=== PATIENT | male | born 1960 | race Hispanic/Latino ===

== ENCOUNTER 2016-10-27 23:18 | Emergency (ER) | payer MEDICAID ==
[2016-10-27 23:18] VITALS: BMI 28.7
--- NOTE | 2016-10-27 23:53 | C.PDOC ---
History Of Present Illness Pt c/o of shortness of breath that began today. Pt has been drinking today and has a history of ETOH abuse. Pt denies any fever, chills, nausea, vomiting, or any other complaints. Time Seen by Provider: 10/27/16 23:53 Chief Complaint (Nursing): Shortness Of Breath History Per: Patient History/Exam Limitations: no limitations Onset/Duration Of Symptoms: Hrs Current Symptoms Are (Timing): Still Present Initiating Event: Other (ETOH abuse) Severity: Mild Associated Symptoms: denies: Fever, Chills, Other (Nausea, vomiting) Recent travel outside of the [place]: No Past Medical History Reviewed: Historical Data, Nursing Documentation, Vital Signs Vital Signs: Last Vital Signs Temp 97.6 F 10/28/16 02:13 Pulse 92 H 10/28/16 02:13 Resp 20 10/28/16 02:13 BP 131/73 10/28/16 02:13 Pulse Ox 92 L 10/28/16 02:26 - Medical History PMH: Anxiety, Arthritis, Back Problems, Bronchitis, Depression, Fractures (fx left leg), Gall Bladder Disease, HTN, Kidney Stones, Chronic Kidney Disease, Seizures (alcohol induced) Denies: Diabetes, Hepatitis, HIV, Sexually Transmitted Disease - [facility] Procedures ALCOHOL DETOXIFICATION (11/06/14) COMBINED ALCOHOL AND DRUG DETOXIFICATION (05/05/15) DETOXIFICATION SERVICES FOR SUBSTANCE ABUSE TREATMENT (07/29/16) GROUP MANAGING PRINCIPAL FOR SUBSTANCE ABUSE TREATMENT, PSYCHOEDUCATION (07/29/16) GROUP PSYCHOTHERAPY (05/24/16) Family History: States: Unknown Family Hx - Social History Hx Tobacco Use: Yes Hx Alcohol Use: Yes Hx Substance Use: No (DENIES) - Immunization History Hx Tetanus Toxoid Vaccination: No Hx Influenza Vaccination: No Hx Pneumococcal Vaccination: No Review Of Systems Constitutional: Negative for: Fever, Chills Respiratory: Positive for: Shortness of Breath Gastrointestinal: Negative for: Nausea, Vomiting Physical Exam - Physical Exam Appears: Non-toxic Skin: Warm, Dry, Other (Facial eczema) Cardiovascular: Rhythm Regular Respiratory: No Rales, Rhonchi (Lungs scattered rhonchi), No Wheezing Gastrointestinal/Abdominal: Tenderness (tympanic on percussion), Distention ED Course And Treatment - Laboratory Results Result Diagrams: 10/28/16 00:15 10/28/16 00:15 ECG: Interpreted By Me, Viewed By Me ECG Rhythm: Sinus Rhythm (75), Nonspecific Changes O2 Sat by Pulse Oximetry: 92 Pulse Ox Interpretation: Abnormal - Radiology CXR: Interpreted by Me, Viewed By Me CXR Interpretation: No: Infiltrates, Fracture, Pnemothorax Reevaluation Time: 05:30 Reassessment Condition: Improved ED OBSERVATION Discharge: Yes Date of observation admission: 10/28/16 Time of observation admission: 02:25 - Progress Note Progress Note: 10/28/16 02:25 vitals stable, slightly tremulous 10/28/16 04:26 no complaints 10/28/16 05:30 vitals stable Disposition Counseled Patient/Family Regarding: Studies Performed, Diagnosis, Need For Followup - Disposition Referrals: [facility] [Outside] Disposition: HOME/ ROUTINE Disposition Time: 23:53 Condition: FAIR Instructions: Alcohol Intoxication (DC), COPD (Chronic Obstructive Pulmonary Disease) (DC) - Clinical Impression Clinical Impression: Alcohol intoxication, Alcohol abuse, COPD (chronic obstructive pulmonary disease) - Scribe Statement The provider has reviewed the documentation as recorded by the Scribe Geronimo valencia All medical record entries made by the Scribe were at my direction and personally dictated by me. I have reviewed the chart and agree that the record accurately reflects my personal performance of the history, physical exam, medical decision making, and the department course for this patient. I have also personally directed, reviewed, and agree with the discharge instructions and disposition.
[2016-10-28 00:17] LABS: VENOUS BLOOD GAS BASE EXCESS 3.3 mmol/L (0.0-2.0); VENOUS BLOOD GAS PCO2 48 mmHg (40-60); VENOUS BLOOD PH 7.39 (7.32-7.43)
[2016-10-28 00:18] LABS: BASO # 0.1 K/uL (0.0-0.2); BASO % 1.1 % (0.0-2.0); EOS # 0.2 K/uL (0.0-0.7); EOS % 3.1 % (0.0-4.0); HEMATOCRIT 42.8 % (35.0-51.0); LYMPH # 2.7 K/uL (1.0-4.3); LYMPH % 38.2 % (20.0-40.0); MEAN CELL VOLUME 99.3 fL (80.0-94.0); MEAN CORPUSCULAR HEMOGLOBIN 33.4 pg (27.0-31.0); MEAN CORPUSCULAR HGB CONC 33.6 g/dL (33.0-37.0); MEAN PLATELET VOLUME 7.2 fL (7.2-11.7); MONO # 0.6 K/uL (0.0-0.8); MONO % 8.7 % (0.0-10.0); WHITE BLOOD COUNT 7.1 K/uL (4.8-10.8)
[2016-10-28 00:30] LABS: INR 1.1
[2016-10-28] MEDS: Albuterol-Ipratrop 3 mg / 0.5 (3 ml) UD IH SCH ×3 (00:30→00:58)
[2016-10-28] MEDS ORDERED: Albuterol-Ipratrop 3 mg / 0.5 (3 ml) UD ONE ×3 (00:31)
[2016-10-28 00:53] LABS: CHLORIDE 100 mmol/L (98-107)
[2016-10-28 00:54] LABS: SODIUM 143 mmol/L (132-148)
[2016-10-28 00:55] LABS: POTASSIUM 3.2 mmol/L (3.6-5.2)
[2016-10-28 00:56] LABS: GFR AFRICAN-AMERICAN > 60
[2016-10-28 00:57] LABS: ALB/GLOB RATIO 1.2 (1.0-2.1); ALKALINE PHOSPHATASE 55 U/L (38-126); ALT/SGPT 153 U/L (21-72); AST/SGOT 136 U/L (17-59); BILIRUBIN,TOTAL 0.7 mg/dL (0.2-1.3); BLOOD UREA NITROGEN 13 mg/dL (9-20); CALCIUM 8.8 mg/dl (8.6-10.4); CARBON DIOXIDE 26 mmol/L (22-30); GLUCOSE,RANDOM 78 mg/dL (75-110); TOTAL PROTEIN 7.8 g/dL (6.3-8.3)
[2016-10-28 00:58] LABS: ALCOHOL SERUM 74 mg/dl (0-10); MAGNESIUM 1.3 mg/dL (1.6-2.3)
[2016-10-28 02:14] VITALS: RESP 20
[2016-10-28] MEDS ORDERED: Potassium Chloride 20 mEq ER Tab PO ONE ×2 (02:22→02:27)
[2016-10-28] MEDS ORDERED: Potassium Chloride 10 mEq ER Tab PO STA (02:26)
[2016-10-28 06:20] VITALS: BP 138/70; PULSE 69; TEMP 97; O2SAT 96
--- NOTE | 2016-10-28 11:04 | RAD ---
PROCEDURE: CHEST RADIOGRAPH, 1 VIEW HISTORY: SOB COMPARISON: 05/24/2016. FINDINGS: LUNGS: Subtle hazy opacity in the lingula. PLEURA: No pneumothorax or pleural fluid seen. CARDIOVASCULAR: Normal. OSSEOUS STRUCTURES: No significant abnormalities. VISUALIZED UPPER ABDOMEN: Normal. OTHER FINDINGS: None. IMPRESSION: Subtle hazy opacity overlying the lingula. PA lateral chest radiographs recommended.
--- NOTE | 2016-10-30 09:06 | CARD ---
APPROVED REPORT EKG Measurement Heart [id number] <Conclusion> Normal sinus rhythm Normal ECG
== END 2016-10-28 06:24 | disposition home or self-care (01) ==
LOC: C.ER 23:18
DX: J44.9 Chronic obstructive pulmonary disease, unspecified (principal); F10.129 Alcohol abuse with intoxication, unspecified; Y90.3 Blood alcohol level of 60-79 mg/100 ml; E87.6 Hypokalemia

== ENCOUNTER 2016-11-07 17:59 | Emergency (ER) | payer MEDICAID ==
[2016-11-07 18:00] VITALS: BMI 32.5
[2016-11-07 18:38] VITALS: BP 132/96; PULSE 85; RESP 18; TEMP 98.3; O2SAT 94
--- NOTE | 2016-11-07 19:57 | C.PDOC ---
History Of Present Illness 55 y/o male presents to the ED requesting place to stay. Pt is homeless, history of alcohol abuse. Pt has no physical complaints at this time. Time Seen by Provider: 11/07/16 19:52 Chief Complaint (Nursing): Substance Abuse History Per: Patient History/Exam Limitations: no limitations Suicide/Self Injury Attempted (Context): None Modifying Factor(s): Alcohol Involuntary Hold By: None Recent travel outside of the [place]: No Past Medical History Reviewed: Historical Data, Nursing Documentation, Vital Signs Vital Signs: Last Vital Signs Temp 98.3 F 11/07/16 18:34 Pulse 85 11/07/16 18:34 Resp 18 11/07/16 18:34 BP 132/96 H 11/07/16 18:34 Pulse Ox 94 L 11/07/16 19:57 - Medical History PMH: Anxiety, Arthritis, Back Problems, Bronchitis, Depression, Fractures (fx left leg), Gall Bladder Disease, HTN, Kidney Stones, Chronic Kidney Disease, Seizures (alcohol induced) - [facility] Procedures ALCOHOL DETOXIFICATION (11/06/14) COMBINED ALCOHOL AND DRUG DETOXIFICATION (05/05/15) DETOXIFICATION SERVICES FOR SUBSTANCE ABUSE TREATMENT (07/29/16) GROUP HEDDLER TIER FOR SUBSTANCE ABUSE TREATMENT, PSYCHOEDUCATION (07/29/16) GROUP PSYCHOTHERAPY (05/24/16) Family History: States: Unknown Family Hx - Social History Hx Tobacco Use: Yes Hx Alcohol Use: Yes Hx Substance Use: No (DENIES) - Immunization History Hx Tetanus Toxoid Vaccination: No Hx Influenza Vaccination: No Hx Pneumococcal Vaccination: No Review Of Systems Except As Marked, All Systems Reviewed And Found Negative. Physical Exam - Physical Exam Appears: Non-toxic, No Acute Distress, Other (intoxicated, belligerent, argumentative, confrontational, foul mouth) Skin: Warm, Dry, No Rash Head: Atraumatic, Normacephalic Cardiovascular: Rhythm Regular Respiratory: Normal Breath Sounds, No Rales, No Rhonchi, No Wheezing Gastrointestinal/Abdominal: Soft Extremity: Bilateral: Atraumatic Neurological/Psych: Oriented x3 ED Course And Treatment O2 Sat by Pulse Oximetry: 94 (on room air) Medical Decision Making Medical Decision Making: chronic alcoholism, ? homeless no detox beds available today ok to d/c to senior living escorted out of ED by security Disposition Doctor Will See Patient In The: Office Counseled Patient/Family Regarding: Studies Performed, Diagnosis - Disposition Referrals: Alcoholics Anonymous [Outside] [facility] [Outside] [facility] [Outside] Disposition: HOME/ ROUTINE Disposition Time: 19:56 Condition: GOOD Additional Instructions: stay at a senior living tonight as directed Seek AA Instructions: Abuse of Alcohol (ED) - Clinical Impression Clinical Impression: Alcohol abuse - Scribe Statement The provider has reviewed the documentation as recorded by the Isidra Carver Provider Attestation: All medical record entries made by the Isidra were at my direction and personally dictated by me. I have reviewed the chart and agree that the record accurately reflects my personal performance of the history, physical exam, medical decision making, and the department course for this patient. I have also personally directed, reviewed, and agree with the discharge instructions and disposition.
== END 2016-11-07 20:03 | disposition home or self-care (01) ==
LOC: C.ER 17:59
DX: F10.10 Alcohol abuse, uncomplicated (principal); Y90.9 Presence of alcohol in blood, level not specified

== ENCOUNTER 2017-01-13 09:22 | Emergency (ER) | payer MEDICAID ==
[2017-01-13 09:22] VITALS: BMI 29.5
[2017-01-13 09:27] VITALS: BP 145/78; PULSE 83; RESP 20; TEMP 97.4; O2SAT 95
--- NOTE | 2017-01-13 11:43 | C.PDOC ---
History Of Present Illness 56 yr old male presents to the ER with complaints of left 1st toe pain, on and off for the past 5 months. States the pain is sharp in nature and came to the ED because he was concerned it may be gout. Patient denies trauma, injury, fever , weakness or numbness. Time Seen by Provider: 01/13/17 09:30 Chief Complaint (Nursing): Lower Extremity Problem/Injury History Per: Patient History/Exam Limitations: no limitations Onset/Duration Of Symptoms: Intermittent Episodes (5 mons ) Past Medical History Reviewed: Historical Data, Nursing Documentation, Vital Signs Vital Signs: Last Vital Signs Temp 97.4 F L 01/13/17 09:26 Pulse 83 01/13/17 09:26 Resp 20 01/13/17 09:26 BP 145/78 01/13/17 09:26 Pulse Ox 95 01/13/17 13:51 - Medical History PMH: Anxiety, Arthritis, Back Problems, Bronchitis, COPD, Depression, Fractures (fx left leg), Gastrointestinal Ulcer, Gall Bladder Disease, HTN, Kidney Stones , Seizures (alcohol induced) - [facility] Procedures ALCOHOL DETOXIFICATION (11/06/14) COMBINED ALCOHOL AND DRUG DETOXIFICATION (05/05/15) DETOXIFICATION SERVICES FOR SUBSTANCE ABUSE TREATMENT (07/29/16) GROUP PLATFORM MAN FOR SUBSTANCE ABUSE TREATMENT, PSYCHOEDUCATION (07/29/16) GROUP PSYCHOTHERAPY (05/24/16) Family History: States: No Known Family Hx - Social History Hx Tobacco Use: Yes Hx Alcohol Use: No Hx Substance Use: Yes (heroin) - Immunization History Hx Tetanus Toxoid Vaccination: No Hx Influenza Vaccination: Yes (9 months ago) Hx Pneumococcal Vaccination: No Review Of Systems Except As Marked, All Systems Reviewed And Found Negative. Constitutional: Negative for: Fever Musculoskeletal: Positive for: Other ((+) Left 1st toe pain ) Neurological: Negative for: Weakness, Numbness Physical Exam - Physical Exam Appears: Well, Non-toxic, No Acute Distress Skin: Warm, Dry, No Rash Head: Atraumatic, Normacephalic Chest: Symmetrical, No Tenderness Cardiovascular: Rhythm Regular, No Murmur Respiratory: Normal Breath Sounds, No Rales, No Rhonchi, No Stridor, No Wheezing Extremity: No Calf Tenderness, Capillary Refill (<2), No Deformity, Other (Left , 1st Toe - Point tenderness to the DIP joint of the toe. Not warm to touch. No erythema. ) Pulses: Left Dorsalis Pedis: Normal, Right Dorsalis Pedis: Normal Neurological/Psych: Oriented x3, Normal Speech, Normal Motor, Normal Sensation, Normal Reflexes ED Course And Treatment O2 Sat by Pulse Oximetry: 95 - Other Rad X-Ray - Left Foot, Great Toe X-Ray: Viewed By Me, Read By Radiologist Interpretation: HISTORY: r/o fx. COMPARISON: No prior. FINDINGS: BONES: Normal. No fracture. JOINTS: Normal. No osteoarthritis. SOFT TISSUE: Normal. OTHER FINDINGS: None . IMPRESSION: Normal Bone Xray. Medical Decision Making Medical Decision Making: PLAN: * X-Ray - Left Foot, Great Toe Disposition - Disposition Referrals: [facility] Prachi Humphries, [Non-Staff] - Disposition: HOME/ ROUTINE Disposition Time: 09:45 Condition: GOOD Additional Instructions: Thank you for letting us take care of you today. Your provider was Dr. Mckeon. You were treated for toe pain. The emergency medical care you received today was directed at your acute symptoms. If you were prescribed any medication, please fill it and take as directed. It may take several days for your symptoms to resolve. Return to the Emergency Department if your symptoms worsen, do not improve, or if you have any other problems. Please contact your doctor or call one of the physicians/clinics you have been referred to that are listed on the Patient Visit Information form that is included in your discharge packet. Bring any paperwork you were given at discharge with you along with any medications you are taking to your follow up visit. Our treatment cannot replace ongoing medical care by a primary care provider (PCP) outside of the emergency department. Thank you for allowing the [facility] team to be part of your care today. Follow up with your doctor in 2-3 days for re-evaluation. Instructions: Arthralgia (ED) - Clinical Impression Clinical Impression: Joint pain - Scribe Statement The provider has reviewed the documentation as recorded by the Isidra Ahn Provider Attestation: All medical record entries made by the Lenoreibmaría were at my direction and personally dictated by me. I have reviewed the chart and agree that the record accurately reflects my personal performance of the history, physical exam, medical decision making, and the department course for this patient. I have also personally directed, reviewed, and agree with the discharge instructions and disposition.
--- NOTE | 2017-01-13 13:49 | RAD ---
HISTORY: r/o fx COMPARISON: No prior FINDINGS: BONES: Normal. No fracture. JOINTS: Normal. No osteoarthritis. SOFT TISSUE: Normal. OTHER FINDINGS: None . IMPRESSION: Normal Bone Xray.
== END 2017-01-13 10:16 | disposition home or self-care (01) ==
LOC: C.ER 09:22
DX: M25.572 Pain in left ankle and joints of left foot (principal)

== ENCOUNTER 2017-03-17 04:10 | Emergency (ER) | payer MEDICAID ==
[2017-03-17 04:10] VITALS: BMI 29.0
[2017-03-17 04:21] VITALS: RESP 18; O2SAT 96
--- NOTE | 2017-03-17 05:03 | C.PDOC ---
History Of Present Illness Patient brought to ED by EMS after being found sitting on street snorting Heroin. At ED patient complaints of left sided neck pain. Patient denies injury , fever, chills, n/v/d or any other complaints at this time. Time Seen by Provider: 03/17/17 05:02 Chief Complaint (Nursing): Substance Abuse History Per: Patient, EMS History/Exam Limitations: no limitations Onset/Duration Of Symptoms: Hrs Current Symptoms Are (Timing): Still Present Suicide/Self Injury Attempted (Context): None Modifying Factor(s): Other (Heroin) Severity: Mild Pain Scale Rating Of: 2 Associated Symptoms: denies: Anger, Anxiety Recent travel outside of the [place]: No Past Medical History Reviewed: Historical Data, Nursing Documentation, Vital Signs Vital Signs: Last Vital Signs Temp 97.4 F L 03/17/17 04:16 Pulse 71 03/17/17 04:16 Resp 18 03/17/17 04:16 BP 116/76 03/17/17 04:16 Pulse Ox 96 03/17/17 05:32 - Medical History PMH: Anxiety, Arthritis, Back Problems, Bronchitis, COPD, Depression, Fractures (fx left leg), Gastrointestinal Ulcer, Gall Bladder Disease, HTN, Kidney Stones , Seizures (alcohol induced) - [facility] Procedures ALCOHOL DETOXIFICATION (11/06/14) COMBINED ALCOHOL AND DRUG DETOXIFICATION (05/05/15) DETOXIFICATION SERVICES FOR SUBSTANCE ABUSE TREATMENT (07/29/16) GROUP GLASS CRUSHER FOR SUBSTANCE ABUSE TREATMENT, PSYCHOEDUCATION (07/29/16) GROUP PSYCHOTHERAPY (05/24/16) Family History: States: No Known Family Hx - Social History Hx Tobacco Use: Yes Hx Alcohol Use: No Hx Substance Use: Yes (heroin) - Immunization History Hx Tetanus Toxoid Vaccination: No Hx Influenza Vaccination: Yes (9 months ago) Hx Pneumococcal Vaccination: No Review Of Systems Constitutional: Negative for: Fever, Chills Gastrointestinal: Negative for: Nausea, Vomiting, Diarrhea Musculoskeletal: Positive for: Neck Pain Skin: Negative for: Rash Physical Exam - Physical Exam Appears: Non-toxic, No Acute Distress Skin: Warm, Dry Head: Normacephalic Eye(s): bilateral: Normal Inspection Nose: No Flaring Oral Mucosa: Moist Neck: Other (Mild paracervical spasms, Full rom) Chest: Symmetrical Cardiovascular: Rhythm Regular Respiratory: No Rales, No Rhonchi, No Wheezing Gastrointestinal/Abdominal: Soft, No Tenderness, No Guarding, No Rebound Extremity: Capillary Refill (<2 seconds), No Deformity Neurological/Psych: Oriented x3, Normal Speech, Normal Cognition ED Course And Treatment O2 Sat by Pulse Oximetry: 96 (RA) Pulse Ox Interpretation: Normal Disposition Counseled Patient/Family Regarding: Studies Performed, Diagnosis, Need For Followup - Disposition Referrals: Bladimir Johnson MD [Primary Care Provider] - Disposition: HOME/ ROUTINE Disposition Time: 05:03 Condition: FAIR Instructions: Cervical Strain (DC), Alcohol Intoxication (DC), Polysubstance Abuse (ED), Neck Exercises (GEN) Forms: [employer] (Puerto Rican) - Clinical Impression Clinical Impression: Alcohol intoxication, Drug abuse, Torticollis - Scribe Statement The provider has reviewed the documentation as recorded by the Scribmaría Coulter All medical record entries made by the Scribe were at my direction and personally dictated by me. I have reviewed the chart and agree that the record accurately reflects my personal performance of the history, physical exam, medical decision making, and the department course for this patient. I have also personally directed, reviewed, and agree with the discharge instructions and disposition.
[2017-03-17 05:46] VITALS: BP 117/87; PULSE 76; TEMP 97.8
== END 2017-03-17 06:15 | disposition home or self-care (01) ==
LOC: C.ER 04:10 → SUPCPDRO 04:10 → C.ER 06:15
DX: M43.6 Torticollis (principal); F10.129 Alcohol abuse with intoxication, unspecified; F11.10 Opioid abuse, uncomplicated; Y90.9 Presence of alcohol in blood, level not specified

== ENCOUNTER 2017-03-17 09:41 | Inpatient (IN) | payer MEDICAID ==
[2017-03-17 09:42] VITALS: BMI 29.0
--- NOTE | 2017-03-17 10:14 | C.PDOC ---
History Of Present Illness 56 y/o male presents to the ED requesting detox from heroin (last use yest) and alcohol (last use 2am). Patient denies physical complaints, and has no SI/HI. Time Seen by Provider: 03/17/17 09:47 Chief Complaint (Nursing): Substance Abuse History Per: Patient History/Exam Limitations: no limitations Onset/Duration Of Symptoms: Persistent Current Symptoms Are (Timing): Still Present Suicide/Self Injury Attempted (Context): None Modifying Factor(s): Alcohol, Narcotics (snorts) Severity: Moderate Associated Symptoms: denies: Suicidal Thoughts, Suicidal Plan Additional History Per: Patient Past Medical History Reviewed: Historical Data, Nursing Documentation, Vital Signs Vital Signs: Last Vital Signs Temp 98.2 F 03/20/17 09:25 Pulse 60 03/20/17 09:25 Resp 18 03/20/17 09:25 BP 133/79 03/20/17 09:25 Pulse Ox 96 03/20/17 09:25 - Medical History PMH: Anxiety, Arthritis, Back Problems, Bronchitis, COPD, Depression, Fractures (fx left leg), Gastrointestinal Ulcer, Gall Bladder Disease, HTN, Kidney Stones , Chronic Kidney Disease, Seizures (alcohol induced) - [facility] Procedures ALCOHOL DETOXIFICATION (11/06/14) COMBINED ALCOHOL AND DRUG DETOXIFICATION (05/05/15) DETOXIFICATION SERVICES FOR SUBSTANCE ABUSE TREATMENT (07/29/16) GROUP SUPERVISOR ASBESTOS REMOVAL FOR SUBSTANCE ABUSE TREATMENT, PSYCHOEDUCATION (07/29/16) GROUP PSYCHOTHERAPY (05/24/16) Family History: States: No Known Family Hx - Social History Hx Tobacco Use: Yes Hx Alcohol Use: Yes Hx Substance Use: Yes (heroin- snort) - Immunization History Hx Tetanus Toxoid Vaccination: No Hx Influenza Vaccination: Yes (9 months ago) Hx Pneumococcal Vaccination: No Review Of Systems Except As Marked, All Systems Reviewed And Found Negative. Constitutional: Negative for: Fever, Chills Cardiovascular: Negative for: Chest Pain, Palpitations Respiratory: Negative for: Shortness of Breath Gastrointestinal: Negative for: Nausea, Vomiting, Abdominal Pain Musculoskeletal: Negative for: Neck Pain Skin: Negative for: Rash, Bruising Neurological: Negative for: Headache, Dizziness Psych: Negative for: Suicidal ideation Physical Exam - Physical Exam Appears: Well, Non-toxic, No Acute Distress Skin: Normal Color, Warm, Dry, No Rash Eye(s): bilateral: Normal Inspection Oral Mucosa: Moist Neck: Supple Cardiovascular: Rhythm Regular Respiratory: Normal Breath Sounds, No Rales, No Rhonchi, No Wheezing Extremity: Bilateral: Atraumatic, Normal ROM Neurological/Psych: Oriented x3 ED Course And Treatment - Laboratory Results Result Diagrams: 03/17/17 10:22 08 10:22 O2 Sat by Pulse Oximetry: 93 (RA) Pulse Ox Interpretation: Normal (Patient is smoker, likely has COPD component) Progress Note: Plan: Blood work, UA, UDS ordered and reviewed. 11:30am - Patient medically cleared. Pending crisis. 11:55am- Patient accepted by Dr. Elizondo for alcohol and opiate dependence admission. Disposition - Disposition Disposition: HOSPITALIZED Disposition Time: 11:55 Condition: STABLE - Clinical Impression Clinical Impression: Opiate dependence, Alcohol dependence - Scribe Statement The provider has reviewed the documentation as recorded by the Scribe Devin Villagran All medical record entries made by the Scribe were at my direction and personally dictated by me. I have reviewed the chart and agree that the record accurately reflects my personal performance of the history, physical exam, medical decision making, and the department course for this patient. I have also personally directed, reviewed, and agree with the discharge instructions and disposition. Decision To Admit - Pt Status Changed To: Hospital Disposition Of: Inpatient - Admit Certification Admit to Inpatient:: After my assessment, the patient will require hospitalization for at least two midnights. This is because of the severity of symptoms shown, intensity of services needed, and/or the medical risk in this patient being treated as an outpatient. - InPatient: Physician Admission Certification: I certify that this patient requires 2 or more midnights of care for the following reason:: see notes - . Bed Request Type: Detox Admitting Physician: Clarita Elizondo Patient Diagnosis: Opiate dependence, Alcohol dependence
[2017-03-17 10:28] LABS: BASO # 0.1 K/uL (0.0-0.2); BASO % 0.9 % (0.0-2.0); EOS # 0.2 K/uL (0.0-0.7); HEMOGLOBIN 13.6 g/dL (12.0-18.0); LYMPH # 1.6 K/uL (1.0-4.3); LYMPH % 23.2 % (20.0-40.0); MEAN CELL VOLUME 98.7 fL (80.0-94.0); MEAN CORPUSCULAR HEMOGLOBIN 33.9 pg (27.0-31.0); MEAN CORPUSCULAR HGB CONC 34.3 g/dL (33.0-37.0); MEAN PLATELET VOLUME 7.7 fL (7.2-11.7); MONO # 0.9 K/uL (0.0-0.8); MONO % 12.1 % (0.0-10.0); NEUT # 4.3 K/uL (1.8-7.0); NEUT % 60.8 % (50.0-75.0); NRBC % 0.1 % (0.0-2.0); RBC 4.01 Mil/uL (4.40-5.90); RED CELL DISTRIBUTION WIDTH 13.3 % (11.5-14.5); WHITE BLOOD COUNT 7.1 K/uL (4.8-10.8)
[2017-03-17 10:34] LABS: ALBUMIN 3.8 g/dL (3.5-5.0); SQUAMOUS EPITHIAL 1 /hpf (0-5); URINE BACTERIA RARE (<OCC); URINE BILIRUBIN NEGATIVE (NEGATIVE); URINE BLOOD NEGATIVE (NEGATIVE); URINE CLARITY Clear (Clear); URINE COLOR Amber (YELLOW); URINE GLUCOSE (UA) NORMAL (Normal); URINE LEUKOCYTE ESTERASE TRACE Leu/uL (Negative); URINE NITRATE NEGATIVE (NEGATIVE); URINE PROTEIN 1+ mg/dL (NEGATIVE); URINE UROBILINOGEN NORMAL mg/dL (0.2-1.0)
[2017-03-17 10:37] LABS: ALB/GLOB RATIO 1.2 (1.0-2.1); AST/SGOT 93 U/L (17-59); BLOOD UREA NITROGEN 10 mg/dL (9-20); GFR AFRICAN-AMERICAN > 60; GFR NON-AFRICAN AMERICAN > 60
[2017-03-17 10:38] LABS: ALT/SGPT 144 U/L (21-72); CALCIUM 8.5 mg/dl (8.6-10.4)
[2017-03-17 10:50] LABS: BARBITURATES, UR NEGATIVE (NEGATIVE); BENZODIAZEPINES, UR NEGATIVE (NEGATIVE)
[2017-03-17 10:53] LABS: PHENCYCLIDINE, UR NEGATIVE (NEGATIVE)
[2017-03-17 11:17] LABS: OPIATES, UR POSITIVE (NEGATIVE)
[2017-03-17] MEDS ORDERED: Albuterol-Ipratrop 3 mg / 0.5 (3 ml) UD INH STA (11:59)
[2017-03-17] MEDS ORDERED: Albuterol-Ipratrop 3 mg / 0.5 (3 ml) UD ONE (12:02)
[2017-03-17] MEDS ORDERED: Albuterol HFA 90 mcg/actuation (8 g) INH PRN (13:22)
[2017-03-17] MEDS ORDERED: Aluminum Hydroxide/Magnesium Hydroxide Susp (30 mL) PO PRN (13:26)
--- NOTE | 2017-03-17 13:55 | PCM.BM ---
<Aicha Fowler G - Last Filed: 03/17/17 13:57> Treatment Plan Problems - Problems identified on initial assessmt opiate dependence Date Initiated: 03/17/17 Time Initiated: 13:54 Assessment reference: NA Status: Active etoh dependent Date Initiated: 03/17/17 Time Initiated: 13:55 Assessment reference: NA Status: Active Treatment assets and liabiliti Patient Assests: ADL independent Patient Liabilities: live alone, poor support system, substance abuse - Milieu Protocol Maintain good personal hygiene: daily Encourage regular showers, daily Remind patient to perform daily oral care, daily Assist patient to perform ADL's Maintain personal safety: every shift Educate patient to report safety concerns to staff, every shift Monitor environment for contraband/sharps Medication safety: Monitor for expected outcome, potential side effects: every shift, Assess barriers to learning: every shift, Assess readiness for medication education: every shift <Clarita Elizondo - Last Filed: 03/17/17 20:44> Treatment Plan Problems - Problems identified on initial assessmt opiate dependence Date Initiated: 03/17/17 Time Initiated: 13:54 Assessment reference: NA Status: Active etoh dependent Date Initiated: 03/17/17 Time Initiated: 13:55 Assessment reference: NA Status: Active Problem 2 Date Initiated: 03/17/17 Time Initiated: 13:55 Assessment reference: NA Status: Active - Diagnosis (1) Alcohol withdrawal Status: Acute Interventions: 03/17/17 20:43 * Assess 7x/week regarding severity of withdrawal * Educate regarding risks, benefits, side effects and alternatives of medications * Use Motivational Interviewing for abstinence * Use CBT for relapse prevention * Medication management for withdrawal symptoms * Encourage medication assisted treatment * (2) Opioid use disorder, severe, dependence Status: Acute Interventions: 03/17/17 20:44 * Assess 7x/week regarding severity of withdrawal * Educate regarding risks, benefits, side effects and alternatives of medications * Use Motivational Interviewing for abstinence * Use CBT for relapse prevention * Medication management for withdrawal symptoms * Encourage medication assisted treatment *
[2017-03-17] MEDS: Multiple Vitamins Tab PO SCH (14:50)
--- NOTE | 2017-03-17 15:03 | PCM.PSYCH ---
Initial Psychiatric Evaluation - Initial Psychiatric Evaluation Type of Admission: Voluntary Legal Status: Capacity Chief Complaint (in patient's own words): "I want to get clean" History of Present Illness and Precipitating Events: The pt is seen, chart reviewed, case discussed with staff. 56 y/o male present to the ED today morning requesting detox from heroin and alcohol. Patient says he is withdrawing from alcohol already and he was shaky. The patient states that he snorts 10-15 bags/day of heroin and drinks 1.5 pints/ day of alcohol. The patient states that he last used heroin yesterday and last drank alcohol at 4 a.m. today morning. The patient reports that he's been sober for 2 months prior to relapse. The patient does not specify reason for relapse. He has a hx of DTs and seizure. The patient denies suicidal thoughts or plans. Feels somewhat depressed, though. Past Psychiatric Hx: Smokes 1 pack/day; snorts cocaine; 4 mg (2 sticks) /day of xanax. No psych admission and no facundo attempts. Past Medical Hx: Bronchitis, untreated; arthritis; back problems; COPD; depression; fractures (fx left leg); gastrointestinal ulcer; gall bladder disease; HTN; kidney stones; chronic kidney disease Family psych hx: Not known Current Medications: Active Medications Generic Name Dose Route Start Last Admin Trade Name Freq PRN Reason Stop Dose Admin Al Hydrox/Mg Hydrox/Simethicone 30 ml 03/17/17 13:26 Maalox 30 Ml PO TID PRN Indigestion / Heartburn Albuterol 1 puff 03/17/17 13:22 Ventolin Hfa 90 Mcg/Actuation (8 G) INH RQ4 PRN SOB Clonidine HCl 0.1 mg 03/17/17 13:24 Catapres PO Q4H PRN Symptoms of alcohol withdrawl Escitalopram Oxalate 5 mg 03/17/17 13:30 Lexapro PO DAILY BEVERLEY Folic Acid 1 mg 03/17/17 13:30 03/17/17 14:50 Folic Acid PO 1 mg DAILY BEVERLEY Administration Ibuprofen 600 mg 03/17/17 13:22 Motrin Tab PO Q6H PRN Pain, moderate (4-7) Loperamide HCl 2 mg 03/17/17 13:26 Imodium PO Q8 PRN Diarrhea Lorazepam 1 mg 03/17/17 13:24 Ativan PO Q4H PRN Symptoms of alcohol withdrawl Lorazepam 2 mg 03/17/17 13:30 03/17/17 14:50 Ativan PO 03/21/17 13:29 2 mg Q6H BEVERLEY Administration Taper Multivitamins 1 tab 03/17/17 13:30 03/17/17 14:50 Hexavitamin PO 1 tab DAILY BEVERLEY Administration Ondansetron HCl 4 mg 03/17/17 13:26 Zofran Tab PO Q8 PRN Nausea/Vomiting Fluticasone/Salmeterol 1 puff 03/17/17 20:00 Advair Diskus 250/50 INH RQ12 BEVERLEY Thiamine HCl 100 mg 03/17/17 13:30 03/17/17 14:50 Vitamin B1 Tab PO 100 mg DAILY BEVERLEY Administration Trazodone HCl 50 mg 03/17/17 22:00 Desyrel PO HS BEVERLEY Past Psychiatric History - Past Psychiatric History Previous Treatment History: None Pertinent Medical Hx (Current Medical&Sleep Prob, Allergies): Allergies Allergy/AdvReac Type Severity Reaction Status Date / Time amitriptyline HCl Allergy SWELLING Verified 03/17/17 09:50 [From Elavil] naproxen Allergy SWELLING Verified 03/17/17 09:50 pregabalin [From Lyrica] Allergy SWELLING Verified 03/17/17 09:50 ALPRAZolam [Xanax] 1 mg PO BID 03/17/17 Review of Systems - Review of Systems Systems not reviewed;Unavailable: Respiratory Distress - Neurological Neurological: As Per HPI, Abnormal Speech, Tremor - Psychiatric Psychiatric: As Per HPI, Anxiety, Depression, Difficulty Concentrating. absent : Suicidal Ideation Mental Status Examination - Personal Presentation Personal Presentation: Looks older than stated age (unkempt) Additional comments: unkempt - Affect Affect: Constricted - Motor Activity Motor Activity: Psychomotor Retardation - Reliability in Providing Information Reliability in Providing Information: Fair - Speech Speech: Organized (but slowed) - Mood Mood: Depressed, Anxious - Formal Thought Process Formal Thought Process: No Impairment - Obsessions/Compulsions Obsessions: No Compulsions: No - Cognitive Functions Orientation: Person, Place, Situation, Time Sensorium: Drowsy Attention/Concentration: Easily distracted Abstract Thinking: [place] Estimate of Intelligence: Average Judgement: Intact, as evidence by: Insight regarding need for hospitalization Memory: Recent intact, as evidence by: Ability to recall events of the day, Remote impaired as evidenced by: Inability to recall sig life events - Risk Risk: Withdrawal, Diminished functioning - Strength & Assets Inventory Strength & Assets Inventory: Cooperative - Limitations Limitations: Living alone, Other DSM 5 DX - DSM 5 DSM 5 Diagnosis: Opioid withdrawal Opioid use d/o - severe Alcohol withdrawal Alcohol use d/o - severe Sedative, hypnotic, or anxiolytic use disorder d/o - severe Tobacco use d/o - severe Major depressive d/o - moderate - Recommended/Plan of Treatment Treatment Recommendations and Plan of Treatment: Ativan detox for alcohol Subutex detox for heroin Gabapentin to augment Bronchitis f/o with medicine As needed meds and vitamins Attend groups and activities DC for abstinence and CBT for relapse prevention Support and psychoeducation Consider and encourage MAT Refer to after care - he says he now has an ID and wants to go to rehab. That was the issue in his last admission. 31 min Projected ELOS: 6-7 Days Prognosis: Good with tx - Smoking Cessation Smoking Cessation Initiated: No
[2017-03-17] MEDS: Fluticasone-Salmeterol 250-50mcg Diskus INH SCH (21:54)
[2017-03-18] MEDS: Fluticasone-Salmeterol 250-50mcg Diskus INH SCH ×2 (08:03→20:58)
[2017-03-18] MEDS ORDERED: Buprenorphine Hydrochloride 2 mg SL ONE ×2 (09:00→11:00)
[2017-03-18] MEDS: Multiple Vitamins Tab PO SCH (10:02)
--- NOTE | 2017-03-18 18:08 | PCM.PYCHPN ---
Psychiatric Progress Note - Psychiatric Progress Note Patient seen today, length of contact: 16 min Patient Chief Complaint: "I am withdrawing" Problems Identified/Issues Discussed: The pt is seen, chart reviewed, case discussed with staff. The pt is compliant with medications and reports no side-effects. Symptoms are improving but needs more time to stabilize. After care discussed, support and psychoeducation given. Medication Change: Yes (detox changes daily) Medical Record Reviewed: Yes Mental Status Examination - Cognitive Function Orientation: Person, Place, Situation, Time Memory: Impaired Attention: Poor Concentration: Poor Association: WNL Fund of Knowledge: WNL - Mood Mood: Depressed, Anxious - Affect Affect: Constricted - Speech Speech: Appropriate - Formal Thought Process Formal Thought Process: No Impairment - Suicidal Ideation Suicidal Ideation: No - Homicidal Ideation Homicidal Ideation: No Goal/Treatment Plan - Goal/Treatment Plan Need for Continued Stay: Discharge may exacerbated symptoms, Severe functional impairment Progress Toward Problem(s) and Goals/Treatment Plan: Ativan detox for alcohol Subutex detox for heroin started Gabapentin to augment Bronchitis f/o with medicine As needed meds and vitamins Attend groups and activities NH for abstinence and CBT for relapse prevention Support and psychoeducation Consider and encourage MAT Refer to after care - Rehab
[2017-03-19] MEDS: Fluticasone-Salmeterol 250-50mcg Diskus INH SCH ×2 (08:25→20:51)
[2017-03-19] MEDS: Multiple Vitamins Tab PO SCH (09:02)
[2017-03-19] MEDS: Buprenorphine Hydrochloride 2 mg SL SCH (09:02)
--- NOTE | 2017-03-19 09:48 | PCM.PYCHPN ---
Psychiatric Progress Note - Psychiatric Progress Note Patient seen today, length of contact: 15 min Patient Chief Complaint: "Not well" Problems Identified/Issues Discussed: The pt is seen, chart reviewed, case discussed with staff. Support given, CBT and MD used briefly No new symptoms reported, improving slowly and needs more time No SEs from medications, risks discussed. After care discussed, he is somewhat motivated Medication Change: Yes (detox changes daily) Medical Record Reviewed: Yes Mental Status Examination - Cognitive Function Orientation: Person, Place, Situation, Time Memory: Impaired Attention: Poor Concentration: Poor Association: WNL Fund of Knowledge: WNL - Mood Mood: Depressed, Anxious - Affect Affect: Constricted - Speech Speech: Appropriate - Formal Thought Process Formal Thought Process: No Impairment - Suicidal Ideation Suicidal Ideation: No - Homicidal Ideation Homicidal Ideation: No Goal/Treatment Plan - Goal/Treatment Plan Need for Continued Stay: Discharge may exacerbated symptoms, Severe functional impairment Progress Toward Problem(s) and Goals/Treatment Plan: Ativan detox for alcohol Subutex detox for heroin started Gabapentin to augment As needed meds and vitamins Attend groups and activities MD for abstinence and CBT for relapse prevention Support and psychoeducation Consider and encourage MAT Refer to after care - Rehab
[2017-03-20] MEDS: Fluticasone-Salmeterol 250-50mcg Diskus INH SCH ×2 (09:29→21:31)
[2017-03-20] MEDS: Multiple Vitamins Tab PO SCH (09:30)
[2017-03-20] MEDS: Buprenorphine Hydrochloride 2 mg SL SCH (09:31)
[2017-03-20 10:01] VITALS: RESP 18
--- NOTE | 2017-03-20 14:58 | PCM.PYCHPN ---
Psychiatric Progress Note - Psychiatric Progress Note Patient seen today, length of contact: 16 min Patient Chief Complaint: "I'm feeling a little better." Problems Identified/Issues Discussed: The pt is seen, chart reviewed, case discussed with staff. Support given, CBT and CT used briefly The patient admits to N/V/D The patient is shaky The patient is improving slowly and needs more time No SEs from medications, risks discussed. After care discussed, he is somewhat motivated Medication Change: Yes (detox changes daily) Medical Record Reviewed: Yes Mental Status Examination - Cognitive Function Orientation: Person, Place, Situation, Time Memory: Impaired Attention: Poor Concentration: Poor Association: WNL Fund of Knowledge: WNL - Mood Mood: Depressed, Anxious - Affect Affect: Constricted - Speech Speech: Appropriate - Formal Thought Process Formal Thought Process: No Impairment - Suicidal Ideation Suicidal Ideation: No - Homicidal Ideation Homicidal Ideation: No Goal/Treatment Plan - Goal/Treatment Plan Need for Continued Stay: Discharge may exacerbated symptoms, Severe functional impairment Progress Toward Problem(s) and Goals/Treatment Plan: Ativan detox for alcohol Subutex detox for heroin started Gabapentin to augment As needed meds and vitamins Attend groups and activities CT for abstinence and CBT for relapse prevention Support and psychoeducation Consider and encourage MAT Refer to after care - Rehab Estimated Date of D/C: 03/21/17
[2017-03-21] MEDS: Multiple Vitamins Tab PO SCH (09:17)
[2017-03-21] MEDS: Buprenorphine Hydrochloride 2 mg SL SCH (09:19)
[2017-03-21 09:21] VITALS: BP 122/75; PULSE 58; TEMP 98.4; O2SAT 96
[2017-03-21] MEDS: Fluticasone-Salmeterol 250-50mcg Diskus INH SCH (09:33)
--- NOTE | 2017-03-21 10:20 | PCM.PYCHDC ---
Mental Status Examination - Mental Status Examination Orientation: Person Memory: Intact Mood: Depressed, Anxious Affect: Constricted Speech: Appropriate Attention: WNL Concentration: WNL Association: WNL Fund of Knowledge: WNL Formal Thought Process: No Impairment Description of patient's judgement and insight: Reasonable Suicidal Ideation: No Current Homicidal Ideation?: No Discharge Summary - Discharge Note Reason for Hospitalization: Opioid and alcohol detox Consultations:: List each consultation separately and include: 1. Reason for request. 2. Findings. 3. Follow-up Summary of Hospital Course include:: 1. Description of specific treatment plan utilized for patients during their course of treatmen. 2. Summarize the time- course for resolution of acute symptoms and/or regressed behaviors. 3. Describe issues identified and worked on during hospitalization. 4. Describe medication utilized. 5. Describe medical problems identified and treated. 6. Reassessment of suicide risk Summary of Hospital Course: The pt was admitted for opioid and alchol detox and started on treatment with psychotherapy, support, psychoeducation and medications. [place] and CBT used. The pt attended groups and activities, as well as milieu therapy. All the risks and benefits of medications are discussed and the patient understood and agreed. The pt improved with the treatments provided. After care discussed with the patient; he will go to [facility] homeless [facility] and attend AA b/c he didn;t get a response form a rehab He says he will keep calling - Final Diagnosis (DSM 5) Condition upon Discharge: STABLE DSM 5: Alcohol withdrawal Opioid withdrawal Alcohol use d/o - severe Opioid use d/o - severe Depressive d/o - unspecified Disposition: HOME/ ROUTINE Follow-up Treatment Plan: Continue below medications after discharge. Follow after care plan as discussed above. Use relapse prevention skills. Return to ER or call 911 if suicidal, homicidal or symptoms relapse. Stay away from stress, alcohol and drugs. Use relaxation techniques. See primary doctor once a year and get labs. Consider MAT Prescriptions/Medication Reconciliation: Escitalopram [Lexapro] 10 mg PO DAILY #30 tab Gabapentin [Neurontin] 300 mg PO BID #60 cap hydrOXYzine HCl [Atarax] 50 mg PO HS #30 tab Multivitamins [Hexavitamin] 1 tab PO DAILY #30 tab - Smoking Cessation Smoking Cessation Medication prescribed: No - Antipsychotic Medications Pt discharged on 2 or more routine antipsychotic medications: No
== END 2017-03-21 11:25 | disposition home or self-care (01) | DRG 744 ==
LOC: C.ER 09:41 → C.7D 11:55
PROVIDERS: ADMIT Psychiatry & Neurology Psychiatry; ATTEND Psychiatry & Neurology Psychiatry
PROC: HZ2ZZZZ Detoxification Services for Substance Abuse Treatment (ICD-10-PCS; principal; 2017-03-17)
PROC: HZ59ZZZ Individual Psychotherapy for Substance Abuse Treatment, Supportive (ICD-10-PCS; 2017-03-17)
PROC: HZ46ZZZ Group Counseling for Substance Abuse Treatment, Psychoeducation (ICD-10-PCS; 2017-03-17)
PROC: GZ3ZZZZ Medication Management (ICD-10-PCS; 2017-03-17)
DX: F11.23 Opioid dependence with withdrawal (principal); J44.9 Chronic obstructive pulmonary disease, unspecified; I12.9 Hypertensive chronic kidney disease with stage 1 through stage 4 chronic kidney disease, or unspecified chronic kidney disease; N18.9 Chronic kidney disease, unspecified; F10.239 Alcohol dependence with withdrawal, unspecified; F32.9 Major depressive disorder, single episode, unspecified; F13.90 Sedative, hypnotic, or anxiolytic use, unspecified, uncomplicated; Z72.0 Tobacco use; Z87.11 Personal history of peptic ulcer disease; Z87.442 Personal history of urinary calculi

== ENCOUNTER 2017-07-07 13:29 | Inpatient (IN) | payer MEDICAID ==
[2017-07-07 13:30] VITALS: BMI 29.0
[2017-07-07 14:50] LABS: BASO % 0.5 % (0.0-2.0); EOS # 0.2 K/uL (0.0-0.7); HEMATOCRIT 43.7 % (35.0-51.0); LYMPH # 1.2 K/uL (1.0-4.3); LYMPH % 17.8 % (20.0-40.0); MEAN CELL VOLUME 98.3 fL (80.0-94.0); MEAN CORPUSCULAR HEMOGLOBIN 33.8 pg (27.0-31.0); MEAN CORPUSCULAR HGB CONC 34.4 g/dL (33.0-37.0); MEAN PLATELET VOLUME 7.7 fL (7.2-11.7); MONO # 0.5 K/uL (0.0-0.8); MONO % 7.9 % (0.0-10.0); RED CELL DISTRIBUTION WIDTH 13.2 % (11.5-14.5); WHITE BLOOD COUNT 6.8 K/uL (4.8-10.8)
[2017-07-07 15:04] LABS: INR 1.1
[2017-07-07 15:07] LABS: ALKALINE PHOSPHATASE 63 U/L (38-126); ALT/SGPT 151 U/L (21-72); AST/SGOT 128 U/L (17-59); BILIRUBIN,TOTAL 1.7 mg/dL (0.2-1.3); BLOOD UREA NITROGEN 15 mg/dL (9-20); CALCIUM 8.7 mg/dl (8.6-10.4); CARBON DIOXIDE 24 mmol/L (22-30); CHLORIDE 95 mmol/L (98-107); GFR AFRICAN-AMERICAN > 60; GLUCOSE,RANDOM 78 mg/dL (75-110); POTASSIUM 5.6 mmol/L (3.6-5.2); SODIUM 131 mmol/L (132-148); TOTAL PROTEIN 8.9 g/dL (6.3-8.3)
--- NOTE | 2017-07-07 15:13 | RAD ---
PROCEDURE: CHEST RADIOGRAPH, 1 VIEW HISTORY: Chest pain. COMPARISON: Comparison made with prior chest radiograph 01/13/2017 FINDINGS: LUNGS: Poor inspiration with low lung volumes, crowded bronchovascular markings and mild bibasilar atelectasis. PLEURA: No pneumothorax or pleural fluid seen. CARDIOVASCULAR: Heart size upper limits of normal/borderline enlarged. . OSSEOUS STRUCTURES: Mild multilevel degenerative spondylosis of the thoracic spine. Mild degenerative changes both shoulder girdles. VISUALIZED UPPER ABDOMEN: Normal. OTHER FINDINGS: None. IMPRESSION: Poor inspiration with low lung volumes, crowded bronchovascular markings and mild bibasilar atelectasis.
[2017-07-07 15:15] LABS: ALCOHOL SERUM < 10 mg/dl (0-10)
--- NOTE | 2017-07-07 15:38 | C.PDOC ---
History Of Present Illness 56-year-old male brought to the emergency department by ambulance for evaluation of chest pain that has been ongoing since this morning, as well as possible alcohol/substance abuse. Patient appears to be under the influence. All other Hx is limited due to intoxication. Time Seen by Provider: 07/07/17 13:39 Chief Complaint (Nursing): Chest Pain History Per: Patient History/Exam Limitations: no limitations Current Symptoms Are (Timing): Still Present Severity: Mild Past Medical History Reviewed: Historical Data, Nursing Documentation, Vital Signs Vital Signs: Last Vital Signs Temp 97.4 F L 07/07/17 13:43 Pulse 54 L 07/07/17 18:10 Resp 16 07/07/17 18:10 BP 129/80 07/07/17 18:10 Pulse Ox 94 L 07/07/17 18:10 - Medical History PMH: Anxiety, Arthritis, Back Problems, Bronchitis, COPD, Depression, Fractures (fx left leg), Gastrointestinal Ulcer, Gall Bladder Disease, HTN, Kidney Stones , Chronic Kidney Disease, Seizures (alcohol induced) - [facility] Procedures ALCOHOL DETOXIFICATION (11/06/14) COMBINED ALCOHOL AND DRUG DETOXIFICATION (05/05/15) DETOXIFICATION SERVICES FOR SUBSTANCE ABUSE TREATMENT (06/15/17) GROUP FLAG DECORATOR FOR SUBSTANCE ABUSE TREATMENT, PSYCHOEDUCATION (03/17/17) GROUP PSYCHOTHERAPY (05/24/16) INDIV PSYCHOTHERAPY FOR SUBSTANCE ABUSE TREATMENT, SUPPORT (03/17/17) INDIV PSYCHOTHERAPY FOR SUBSTANCE ABUSE, COGNITIV BEHAVIORAL (06/15/17) INDIV PSYCHOTHERAPY FOR SUBSTANCE ABUSE, MOTIVATION ENHANCE (06/15/17) MEDICATION MANAGEMENT (03/17/17) MEDS MGMT FOR SUBSTANCE ABUSE TREATMENT, OTH REPL MED (06/15/17) Family History: States: No Known Family Hx - Social History Hx Tobacco Use: Yes Hx Alcohol Use: Yes Hx Substance Use: Yes - Immunization History Hx Tetanus Toxoid Vaccination: No Hx Influenza Vaccination: Yes (9 months ago) Hx Pneumococcal Vaccination: No Review Of Systems Review Of Systems: ROS cannot be obtained secondary to pt's inabilty to answer questions. Physical Exam - Physical Exam Appears: Non-toxic, Unkempt, Other (drowsy but arousable to verbal stimuli) Skin: Warm, Dry, No Rash Head: Atraumatic, Normacephalic Eye(s): bilateral: Normal Inspection Oral Mucosa: Moist Cardiovascular: Rhythm Regular (Bradycardic), No Murmur Respiratory: Normal Breath Sounds, No Accessory Muscle Use, No Rales, No Rhonchi , No Wheezing Gastrointestinal/Abdominal: Normal Exam, Bowel Sounds, Soft, No Tenderness Extremity: Normal ROM, No Pedal Edema, No Calf Tenderness Neurological/Psych: Other (drowsy but arousable to verbal stimuli, moving all 4 extremities spontaneously) ED Course And Treatment - Laboratory Results Result Diagrams: 07/07/17 14:44 07/07/17 14:44 ECG: Interpreted By Me, Viewed By Me ECG Rhythm: Sinus Bradycardia ECG Interpretation: Normal (Normal axis. No acute ST/T wave changes.) Rate From EC O2 Sat by Pulse Oximetry: 95 (on RA) Pulse Ox Interpretation: Normal - Radiology CXR: Interpreted by Me, Viewed By Me CXR Interpretation: Yes: No Acute Disease. No: Infiltrates Progress Note: Blood work, EKG, Chest X-Ray ordered and reviewed. Patient has multiple prior visits at [facility] for alcohol/substance abuse and chest pain. 7:00pm- Patient drowsy but arousable to verbal stimuli. UDS pending, however suspect substance abuse. ANICETO (-) x 2. Patient signed out to Dr. Shaver pending sobriety. Disposition - Disposition Disposition Time: 19:00 Condition: STABLE Forms: [facility] (Green[place]ic) - Clinical Impression Clinical Impression: Alcohol dependence, Substance abuse - Scribe Statement The provider has reviewed the documentation as recorded by the Scribe (Padmini Wyatt) All medical record entries made by the Scribe were at my direction and personally dictated by me. I have reviewed the chart and agree that the record accurately reflects my personal performance of the history, physical exam, medical decision making, and the department course for this patient. I have also personally directed, reviewed, and agree with the discharge instructions and disposition.
--- NOTE | 2017-07-08 11:49 | PCM.PSYCH ---
Initial Psychiatric Evaluation - Initial Psychiatric Evaluation Type of Admission: Voluntary Legal Status: Capacity History of Present Illness and Precipitating Events: The pt is seen, chart reviewed, case discussed with staff. He is well-known from previous detox and more recently psych admissions. 56 y/o male, single, homeless ("waiting for housing") and unemployed, stays at [facility]. He was supposed to go to [facility] methadone program b/c he has both heroin and pain syndrome, but he says he couldn't b/c it was "every day" which he, of course, knew. The patient says he is withdrawing from alcohol and heroin. The patient states that he snorts 8-10 bags/day of heroin and drinks a quart/day of alcohol. The patient states that he last used both yesterday. The patient reports that he's been sober for 1-2 weeks prior to relapse. The patient does not specify reason for relapse. He has a hx of DTs and seizure. He also uses xanax on and off (no wdw) and cocaine i.n. various amounts. The patient denies suicidal thoughts or plans. Feels very depressed, though. He is demoralized a lot from constant pain and relapses. reports depressive sxs but no AVH or delusions Past Psychiatric Hx: One psych admission here last month but no facundo attempts. Past Medical Hx: Bronchitis, untreated; arthritis; back problems; COPD; gastrointestinal ulcer; gall bladder disease; HTN; kidney stones; chronic kidney disease Family psych hx: Family members had drug and alcohol use Current Medications: Active Medications Generic Name Dose Route Start Last Admin Trade Name Farshadq PRN Reason Stop Dose Admin Clonidine HCl 0.1 mg 07/08/17 11:46 Catapres PO Q4H PRN Symptoms of alcohol withdrawl Folic Acid 1 mg 07/08/17 12:00 Folic Acid PO DAILY BEVERLEY Gabapentin 300 mg 07/08/17 14:00 Neurontin PO TID BEVERLEY Hydroxyzine HCl 50 mg 07/08/17 11:38 Atarax PO Q6H PRN Anxiety Lorazepam 1 mg 07/08/17 11:46 Ativan PO Q4H PRN Symptoms of alcohol withdrawl Lorazepam 0 mg 07/08/17 12:00 Ativan PO 07/12/17 11:59 .TAPER BEVERLEY Taper Methadone HCl 20 mg 07/08/17 12:00 Methadone PO 07/08/17 12:01 ONCE ONE Multivitamins 1 tab 07/08/17 12:00 Hexavitamin PO DAILY BEVERLEY Sertraline HCl 100 mg 07/08/17 11:45 Zoloft PO DAILY BEVERLEY Thiamine HCl 100 mg 07/08/17 12:00 Vitamin B1 Tab PO DAILY BEVERLEY Trazodone HCl 100 mg 07/08/17 11:38 Desyrel PO HS PRN Insomnia Past Psychiatric History - Past Psychiatric History Previous Treatment History: Inpatient Pertinent Medical Hx (Current Medical&Sleep Prob, Allergies): Allergies Allergy/AdvReac Type Severity Reaction Status Date / Time amitriptyline HCl Allergy SWELLING Verified 07/07/17 13:52 [From Elavil] naproxen Allergy SWELLING Verified 07/07/17 13:52 pregabalin [From Lyrica] Allergy SWELLING Verified 07/07/17 13:52 Gabapentin [Neurontin] 300 mg PO TID #90 cap 06/22/17 Mirtazapine [Remeron] 30 mg PO HS #30 tab 06/22/17 Sertraline [Zoloft] 100 mg PO DAILY #30 tab 06/22/17 traZODone [Desyrel] 100 mg PO HS PRN #30 tab 06/22/17 Albuterol HFA [Ventolin HFA 90 mcg/actuation (8 g)] 1 - 2 puff IH Q4 PRN #1 inhaler 06/29/17 Fluticasone/Salmeterol 100/50 [Advair Diskus 100/50] 1 puff IH BID #1 dsk Review of Systems - Neurological Neurological: Tremor - Psychiatric Psychiatric: Abnormal Sleep Pattern, Anhedonia, Anxiety, Behavioral Changes, Change in Appetite, Depression, Difficulty Concentrating, Homicidal Ideation, Irritability. absent: Hallucinations, Paranoia, Suicidal Ideation Mental Status Examination - Personal Presentation Personal Presentation: Looks older than stated age (unkempt) - Affect Affect: Constricted - Motor Activity Motor Activity: Calm - Reliability in Providing Information Reliability in Providing Information: Fair - Speech Speech: Organized - Mood Mood: Depressed, Anxious - Formal Thought Process Formal Thought Process: No Impairment - Cognitive Functions Orientation: Person, Place, Situation, Time Sensorium: Alert Attention/Concentration: Attentive Estimate of Intelligence: Average Judgement: Intact, as evidence by: Insight regarding need for hospitalization Memory: Recent intact, as evidence by: Ability to recall events of the day, Remote intact, as evidenced by: Ability to recall historical events - Risk Risk: Seizure, Withdrawal, Diminished functioning - Strength & Assets Inventory Strength & Assets Inventory: Cooperative - Limitations Limitations: Living alone, Other DSM 5 DX - DSM 5 DSM 5 Diagnosis: Major depression, recurrent, severe w/o psychosis Opioid withdrawal Opioid use d/o - severe Alcohol withdrawal Alcohol use d/o -severe Cocaine use d/o - moderate 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
[2017-07-08] MEDS: Multiple Vitamins Tab PO SCH (12:03)
--- NOTE | 2017-07-08 20:00 | PCM.BM ---
<Berna Terrazas - Last Filed: 07/08/17 20:00> Treatment Plan Problems - Problems identified on initial assessmt Depression Date Initiated: 07/08/17 Time Initiated: 20:00 Assessment reference: NA Status: Active Comment: hx of drug abuse Treatment assets and liabiliti Patient Assests: ADL independent, negotiates basic needs - Milieu Protocol Maintain good personal hygiene: daily Encourage regular showers, daily Remind patient to perform daily oral care Conduct patient checks and document Observation sheet: Q15 minutes Maintain personal safety: every shift Educate patient to report safety concerns to staff, every shift Monitor environment for contraband/sharps Medication safety: Monitor for expected outcome, potential side effects: every shift, Assess barriers to learning: every shift, Assess readiness for medication education: every shift <Clarita Elizondo - Last Filed: 07/10/17 12:41> - Diagnosis (1) Alcohol dependence Status: Acute Interventions: 07/10/17 12:41 * Assess 7x/week regarding severity of withdrawal * Educate regarding risks, benefits, side effects and alternatives of medications * Use Motivational Interviewing for abstinence * Use CBT for relapse prevention * Medication management for withdrawal symptoms * Encourage medication assisted treatment * (2) Opioid use disorder, severe, dependence Status: Acute Interventions: 07/10/17 12:41 * Assess 7x/week regarding severity of withdrawal * Educate regarding risks, benefits, side effects and alternatives of medications * Use Motivational Interviewing for abstinence * Use CBT for relapse prevention * Medication management for withdrawal symptoms * Encourage medication assisted treatment * (3) Depression Status: Acute Interventions: 07/10/17 12:41 * Assess/adjust medications daily and /or as needed * See patient on an individual basis 7x/week to assess symptoms of depression * Monitor for side effects & effectiveness of medications * <Samantha Mahoney - Last Filed: 07/12/17 11:39> Family Contact Family involvement: Famliy/SO not involved - Goals for Treatment Patient goals for treatment: "I need suboxone." Discharge/Continuing Care - Education Needs Education Needs: Patient Medication, Patient Coping Skills, Patient Placement options, Patient Community resources - Discharge Discharge Criteria: Tolerates medication w/o severe side effects, No longer exhibiting s/s of withdrawal, Reduction of target symptoms Discharge to:: Home - Treatment Team Participation Discussed with Family/SO: No Was Patient/Family/SO present at Treatment Team Meeting: Yes
[2017-07-09 09:44] LABS: ALB/GLOB RATIO 1.4 (1.0-2.1); ALKALINE PHOSPHATASE 56 U/L (38-126); ALT/SGPT 109 U/L (21-72); AST/SGOT 69 U/L (17-59); BILIRUBIN,TOTAL 0.8 mg/dL (0.2-1.3); BLOOD UREA NITROGEN 21 mg/dL (9-20); CALCIUM 8.5 mg/dl (8.6-10.4); CARBON DIOXIDE 24 mmol/L (22-30); CHLORIDE 102 mmol/L (98-107); GFR AFRICAN-AMERICAN > 60; GLUCOSE,RANDOM 150 mg/dL (75-110); MAGNESIUM 1.4 mg/dL (1.6-2.3); POTASSIUM 3.7 mmol/L (3.6-5.2); SODIUM 134 mmol/L (132-148); TOTAL PROTEIN 6.4 g/dL (6.3-8.3)
[2017-07-09] MEDS: Multiple Vitamins Tab PO SCH (10:39)
--- NOTE | 2017-07-09 12:51 | PCM.PYCHPN ---
Psychiatric Progress Note - Psychiatric Progress Note Patient seen today, length of contact: 15 min Medication Change: Yes Medical Record Reviewed: Yes Mental Status Examination - Cognitive Function Orientation: Person, Place, Situation, Time Memory: Intact Attention: WNL Concentration: Poor Association: WNL Fund of Knowledge: Poor - Mood Mood: Depressed, Anxious - Affect Affect: Constricted - Speech Speech: Soft - Formal Thought Process Formal Thought Process: No Impairment - Suicidal Ideation Suicidal Ideation: No - Homicidal Ideation Homicidal Ideation: No Goal/Treatment Plan - Goal/Treatment Plan Need for Continued Stay: Severe depression anxiety, Severe functional impairment Progress Toward Problem(s) and Goals/Treatment Plan: Major depression, recurrent, severe w/o psychosis Opioid withdrawal Opioid use d/o - severe Alcohol withdrawal Alcohol use d/o -severe 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
[2017-07-09] MEDS ORDERED: Influenza Vaccine 60 mcg/0.5 mL SYR (4YR UP) IM ONE (14:00)
[2017-07-09] MEDS: Lidocaine 5% Patch TD SCH (17:20)
--- NOTE | 2017-07-10 09:26 | CARD ---
APPROVED REPORT EKG Measurement Heart [id number] <Conclusion> Sinus bradycardia Otherwise normal ECG
[2017-07-10] MEDS: Lidocaine 5% Patch TD SCH ×2 (10:01→13:35)
[2017-07-10] MEDS: Multiple Vitamins Tab PO SCH (10:02)
[2017-07-11 07:42] VITALS: O2SAT 94
[2017-07-11] MEDS: Multiple Vitamins Tab PO SCH (09:52)
[2017-07-11] MEDS: Lidocaine 5% Patch TD SCH (09:52)
--- NOTE | 2017-07-11 12:32 | PCM.PYCHPN ---
Mental Status Examination - Cognitive Function Orientation: Person, Place, Situation, Time - Mood Mood: Depressed, Anxious - Affect Affect: Constricted - Formal Thought Process Formal Thought Process: No Impairment - Homicidal Ideation Homicidal Ideation: No
[2017-07-12] MEDS: Multiple Vitamins Tab PO SCH (09:59)
[2017-07-12] MEDS: Lidocaine 5% Patch TD SCH (10:00)
--- NOTE | 2017-07-12 11:25 | PCM.PYCHPN ---
Psychiatric Progress Note - Psychiatric Progress Note Patient seen today, length of contact: 15 min Medication Change: Yes Medical Record Reviewed: Yes Mental Status Examination - Cognitive Function Orientation: Person, Place, Situation, Time Memory: Intact Attention: WNL Concentration: Poor Association: WNL Fund of Knowledge: Poor - Mood Mood: Depressed, Anxious - Affect Affect: Constricted - Speech Speech: Soft - Formal Thought Process Formal Thought Process: No Impairment - Suicidal Ideation Suicidal Ideation: No - Homicidal Ideation Homicidal Ideation: No Goal/Treatment Plan - Goal/Treatment Plan Need for Continued Stay: Severe depression anxiety, Severe functional impairment Progress Toward Problem(s) and Goals/Treatment Plan: Major depression, recurrent, severe w/o psychosis Opioid withdrawal Opioid use d/o - severe Alcohol withdrawal Alcohol use d/o -severe Cocaine use d/o - moderate 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
--- NOTE | 2017-07-12 15:25 | PCM.PYCHPN ---
Psychiatric Progress Note - Psychiatric Progress Note Patient seen today, length of contact: 18 min Patient Chief Complaint: "I'm alright" Problems Identified/Issues Discussed: The pt is seen, chart reviewed, case discussed with staff. The pt is compliant with medications and reports no side-effects. The pt stated that he had minor sleep disturbances. Symptoms are improving but needs more time to stabilize. After care discussed, support and psychoeducation given. Pt has an appointment with a counselor next week Medication Change: Yes (Increased Gabapentin (400mg) and Trazadone (150mg)) Medical Record Reviewed: Yes Mental Status Examination - Cognitive Function Orientation: Person, Place, Situation, Time Memory: Intact Attention: WNL Concentration: WNL Association: WNL Fund of Knowledge: WNL - Mood Mood: Depressed - Affect Affect: Constricted - Speech Speech: Soft - Formal Thought Process Formal Thought Process: No Impairment - Suicidal Ideation Suicidal Ideation: No - Homicidal Ideation Homicidal Ideation: No Goal/Treatment Plan - Goal/Treatment Plan Need for Continued Stay: Severe depression anxiety, Discharge may exacerbated symptoms, Severe functional impairment Progress Toward Problem(s) and Goals/Treatment Plan: Zoloft for depression Methadone and librium detox No extra doses as he tends to overuse As needed medications Gabapentin for augmentation Attend groups and activities Supportive therapy and psychoeducation [place] for abstinence CBT for relapse prevention Encourage MAT Refer to rehab or IOP Attend self-help groups as well Limit setting and psychotx for pers d/o Follow-up with patient about discharge plans: he wants to go to [facility] for sbx treatment
--- NOTE | 2017-07-12 22:01 | PCM.PYCHPN ---
Psychiatric Progress Note - Psychiatric Progress Note Patient seen today, length of contact: 16 min Patient Chief Complaint: "I still have pain" Problems Identified/Issues Discussed: The pt is seen, chart reviewed, case discussed with staff. Still in bed a lot, c/o body pain Methadone clinic vs. sbx treatment at [facility] discussed Support given, [place] used He is at high risk for relapse bc of the pain He is refusing to go to a pain dr for non-opiate or methadone for pain options Medication Change: Yes (Increased Gabapentin (400mg) and Trazadone (150mg)) Medical Record Reviewed: Yes Mental Status Examination - Cognitive Function Orientation: Person, Place, Situation, Time Memory: Intact Attention: WNL Concentration: Poor Association: WNL Fund of Knowledge: WNL - Mood Mood: Depressed - Affect Affect: Constricted - Speech Speech: Soft - Formal Thought Process Formal Thought Process: No Impairment - Suicidal Ideation Suicidal Ideation: No - Homicidal Ideation Homicidal Ideation: No Goal/Treatment Plan - Goal/Treatment Plan Need for Continued Stay: Severe depression anxiety, Discharge may exacerbated symptoms, Severe functional impairment Progress Toward Problem(s) and Goals/Treatment Plan: Zoloft for depression Methadone and librium detox No extra doses as he tends to overuse As needed medications Gabapentin for augmentation Attend groups and activities Supportive therapy and psychoeducation [place] for abstinence CBT for relapse prevention Encourage MAT Refer to rehab or IOP Attend self-help groups as well Limit setting and psychotx for pers d/o Follow-up with patient about discharge plans: he wants to go to [facility] for sbx treatment
[2017-07-13] MEDS: Multiple Vitamins Tab PO SCH (09:51)
[2017-07-13] MEDS: Lidocaine 5% Patch TD SCH (09:51)
--- NOTE | 2017-07-13 14:50 | PCM.PYCHPN ---
Psychiatric Progress Note - Psychiatric Progress Note Patient seen today, length of contact: 18 min Patient Chief Complaint: "I still have a little pain but I slept alright " Problems Identified/Issues Discussed: The pt is seen, chart reviewed, case discussed with staff. Pt is walking around with a slight limp Pt would like sbx treatment at [facility] discussed Support given, [place] used He is at high risk for relapse bc of the pain Pt would like Ultram for the pain Medication Change: Yes (Ultram PRN) Medical Record Reviewed: Yes Mental Status Examination - Cognitive Function Orientation: Person, Place, Situation, Time Memory: Intact Attention: WNL Concentration: Poor Association: WNL Fund of Knowledge: WNL - Mood Mood: Depressed - Affect Affect: Constricted - Speech Speech: Slurred, Soft - Formal Thought Process Formal Thought Process: No Impairment - Suicidal Ideation Suicidal Ideation: No - Homicidal Ideation Homicidal Ideation: No Goal/Treatment Plan - Goal/Treatment Plan Need for Continued Stay: Discharge may exacerbated symptoms, Severe functional impairment Progress Toward Problem(s) and Goals/Treatment Plan: Zoloft for depression Methadone and librium detox No extra doses as he tends to overuse As needed medications Gabapentin for augmentation Attend groups and activities Supportive therapy and psychoeducation [place] for abstinence CBT for relapse prevention Encourage MAT Refer to rehab or IOP Attend self-help groups as well Limit setting and psychotx for pers d/o Pt intends to attend [facility] for sbx treatment Follow up with patient for the name of his pharmacy in [place]
[2017-07-14 07:02] VITALS: BP 106/71; PULSE 69; RESP 20; TEMP 98.7
--- NOTE | 2017-07-14 08:46 | PCM.PYCHDC ---
Mental Status Examination - Mental Status Examination Orientation: Person, Place, Situation, Time Memory: Intact Mood: Neutral Affect: Constricted Speech: Slurred, Soft Attention: WNL Concentration: WNL Association: WNL Fund of Knowledge: WNL Formal Thought Process: No Impairment Suicidal Ideation: No Current Homicidal Ideation?: No Discharge Summary - Discharge Note Reason for Hospitalization: Depression Opioid Withdrawal Opioid Detox Alcohol Withdrawal Alcohol Detox Consultations:: List each consultation separately and include: 1. Reason for request. 2. Findings. 3. Follow-up Summary of Hospital Course include:: 1. Description of specific treatment plan utilized for patients during their course of treatmen. 2. Summarize the time- course for resolution of acute symptoms and/or regressed behaviors. 3. Describe issues identified and worked on during hospitalization. 4. Describe medication utilized. 5. Describe medical problems identified and treated. 6. Reassessment of suicide risk Summary of Hospital Course: The pt was admitted and started on treatment with psychotherapy, support, psychoeducation and medications. [place] and CBT used. The pt attended groups and activities, as well as milieu therapy. All the risks and benefits of medications are discussed and the patient understood and agreed. The pt improved with the treatments provided. After care discussed with the patient. Pt intends to attend [facility] - Diagnosis (1) Alcohol dependence Status: Acute (2) Opioid use disorder, severe, dependence Status: Acute (3) Depression Status: Acute - Final Diagnosis (DSM 5) Condition upon Discharge: STABLE Disposition: HOME/ ROUTINE Follow-up Treatment Plan: Continue below medications after discharge. Follow after care plan as discussed. Use relapse prevention skills Return to ER or call 911 if suicidal, homicidal or symptoms relapse. Stay away from stress, alcohol and drugs. See primary doctor regularly and get labs. Pt prescription for Tramadol was sent to the [facility] Pt is planning to attend [facility] Prescriptions/Medication Reconciliation: Gabapentin [Neurontin] 400 mg PO TID #90 cap Sertraline [Zoloft] 100 mg PO DAILY #30 tab traMADol [Ultram] 50 mg PO Q8 #30 tab traZODone [Desyrel] 150 mg PO HS PRN #30 tab PRN Reason: Insomnia
[2017-07-14] MEDS: Lidocaine 5% Patch TD SCH (09:00)
[2017-07-14] MEDS: Multiple Vitamins Tab PO SCH (09:02)
== END 2017-07-14 10:00 | disposition home or self-care (01) | DRG 430 ==
LOC: C.ER 13:29 → C.5E 07-08 09:41
PROVIDERS: ADMIT Psychiatry & Neurology Psychiatry; ATTEND Psychiatry & Neurology Psychiatry
PROC: HZ2ZZZZ Detoxification Services for Substance Abuse Treatment (ICD-10-PCS; principal; 2017-07-08)
PROC: HZ91ZZZ Pharmacotherapy for Substance Abuse Treatment, Methadone Maintenance (ICD-10-PCS; 2017-07-08)
PROC: HZ52ZZZ Individual Psychotherapy for Substance Abuse Treatment, Cognitive-Behavioral (ICD-10-PCS; 2017-07-08)
PROC: HZ59ZZZ Individual Psychotherapy for Substance Abuse Treatment, Supportive (ICD-10-PCS; 2017-07-08)
PROC: HZ56ZZZ Individual Psychotherapy for Substance Abuse Treatment, Psychoeducation (ICD-10-PCS; 2017-07-08)
DX: F33.2 Major depressive disorder, recurrent severe without psychotic features (principal); F10.230 Alcohol dependence with withdrawal, uncomplicated; F11.23 Opioid dependence with withdrawal; F14.90 Cocaine use, unspecified, uncomplicated; J44.9 Chronic obstructive pulmonary disease, unspecified; N18.9 Chronic kidney disease, unspecified; I12.9 Hypertensive chronic kidney disease with stage 1 through stage 4 chronic kidney disease, or unspecified chronic kidney disease; Z87.11 Personal history of peptic ulcer disease; Z87.442 Personal history of urinary calculi; F17.210 Nicotine dependence, cigarettes, uncomplicated

== ENCOUNTER 2017-08-18 19:06 | Inpatient (IN) | payer MEDICAID ==
[2017-08-18 19:06] VITALS: BMI 29.0
--- NOTE | 2017-08-18 20:52 | C.PDOC ---
History Of Present Illness 56 years old male presents to ED intoxicated with complaints of suicidal ideation without a plan. Patient admits to taking pysch medications for a long time. Patient also admits to using cocaine, percocet, tramadol, heroin, intranasal, and drinks about half pint of vodka a day; ETOH on breath. He states he has a place to stay tonight; with his sister. Patient is dishevelled and denies any physical complaints. Patient has had many prior evaluations for similar intoxication psychiatric illnesses. Time Seen by Provider: 08/18/17 20:23 Chief Complaint (Nursing): Psychiatric Evaluation History Per: Patient History/Exam Limitations: no limitations Onset/Duration Of Symptoms: Hrs Current Symptoms Are (Timing): Still Present Suicide/Self Injury Attempted (Context): None Modifying Factor(s): Alcohol Severity: Mild Pain Scale Rating Of: 3 Associated Symptoms: Suicidal Thoughts. denies: Anger, Anxiety, Suicidal Plan Recent travel outside of the [place]: No Past Medical History Reviewed: Historical Data, Nursing Documentation, Vital Signs Vital Signs: Last Vital Signs Temp 97.3 F L 08/18/17 19:35 Pulse 60 08/18/17 19:35 Resp 18 08/18/17 19:35 BP 122/83 08/18/17 19:35 Pulse Ox 98 08/18/17 21:40 - Medical History PMH: Anxiety, Arthritis, Back Problems, Bronchitis, COPD, Depression, Fractures (fx left leg), Gastrointestinal Ulcer, Gall Bladder Disease, HTN, Kidney Stones , Chronic Kidney Disease, Seizures (alcohol induced) - [facility] Procedures ALCOHOL DETOXIFICATION (11/06/14) COMBINED ALCOHOL AND DRUG DETOXIFICATION (05/05/15) DETOXIFICATION SERVICES FOR SUBSTANCE ABUSE TREATMENT (07/08/17) GROUP DRY PRIMER POWDER BLENDER FOR SUBSTANCE ABUSE TREATMENT, PSYCHOEDUCATION (03/17/17) GROUP PSYCHOTHERAPY (05/24/16) INDIV PSYCHOTHERAPY FOR SUBSTANCE ABUSE TREATMENT, SUPPORT (07/08/17) INDIV PSYCHOTHERAPY FOR SUBSTANCE ABUSE, COGNITIV BEHAVIORAL (07/08/17) INDIV PSYCHOTHERAPY FOR SUBSTANCE ABUSE, MOTIVATION ENHANCE (06/15/17) INDIV PSYCHOTHERAPY FOR SUBSTANCE ABUSE, PSYCHOEDUCATION (07/08/17) MEDICATION MANAGEMENT (03/17/17) MEDS MGMT FOR SUBSTANCE ABUSE TREATMENT, OTH REPL MED (06/15/17) PHARMACOTHERAPY FOR SUBSTANCE ABUSE, METHADONE MAINT (07/08/17) Family History: States: No Known Family Hx - Social History Hx Tobacco Use: Yes Hx Alcohol Use: Yes Hx Substance Use: Yes - Immunization History Hx Tetanus Toxoid Vaccination: No Hx Influenza Vaccination: Yes (9 months ago) Hx Pneumococcal Vaccination: No Review Of Systems Psych: Positive for: Suicidal ideation (Without a plan ). Negative for: Anxiety Physical Exam - Physical Exam Appears: Non-toxic, Other (Awake and alert, ETOH on breath ) Skin: Warm, Dry Head: Normacephalic Eye(s): bilateral: Normal Inspection Oral Mucosa: Moist Neck: Supple Chest: Symmetrical, No Tenderness Cardiovascular: Rhythm Regular Respiratory: Normal Breath Sounds, No Rales, No Rhonchi, No Wheezing Gastrointestinal/Abdominal: Soft, No Tenderness Neurological/Psych: Oriented x3, Normal Speech, Normal Cognition ED Course And Treatment - Laboratory Results Result Diagrams: 08/18/17 21:22 08/18/17 21:22 Lab Interpretation: Abnormal (tox + opiate, cocaine) O2 Sat by Pulse Oximetry: 98 (Room air) Pulse Ox Interpretation: Normal Reevaluation Time: 22:52 Reassessment Condition: Improved - Physician Consult Information Outcome Of Conversation: 2230: d/w Crisis, ok adm to psych Medical Decision Making Medical Decision Making: Ordered blood work and Urinalysis. Disposition Doctor Will See Patient In The: Hospital Counseled Patient/Family Regarding: Studies Performed, Diagnosis - Disposition Disposition: HOSPITALIZED Disposition Time: 22:52 Condition: GOOD Forms: [facility] (Hebrew) - Clinical Impression Clinical Impression: Alcohol abuse, Depression, Cocaine abuse, Opiate abuse, continuous - Scribe Statement The provider has reviewed the documentation as recorded by the Isidra Last All medical record entries made by the Lenoreibmaría were at my direction and personally dictated by me. I have reviewed the chart and agree that the record accurately reflects my personal performance of the history, physical exam, medical decision making, and the department course for this patient. I have also personally directed, reviewed, and agree with the discharge instructions and disposition.
[2017-08-18 21:10] LABS: BARBITURATES, UR NEGATIVE (NEGATIVE); BENZODIAZEPINES, UR NEGATIVE (NEGATIVE); PHENCYCLIDINE, UR NEGATIVE (NEGATIVE)
[2017-08-18 21:11] LABS: OPIATES, UR POSITIVE (NEGATIVE); SQUAMOUS EPITHIAL < 1 /hpf (0-5); URINE BACTERIA RARE (<OCC); URINE BILIRUBIN NEGATIVE (NEGATIVE); URINE BLOOD NEGATIVE (NEGATIVE); URINE CLARITY Clear (Clear); URINE COLOR Yellow (YELLOW); URINE GLUCOSE (UA) NORMAL (Normal); URINE LEUKOCYTE ESTERASE TRACE Leu/uL (Negative); URINE NITRATE NEGATIVE (NEGATIVE); URINE PROTEIN NEGATIVE (NEGATIVE); URINE UROBILINOGEN NORMAL mg/dL (0.2-1.0)
[2017-08-18 21:24] LABS: BASO % 0.6 % (0.0-2.0); EOS # 0.2 K/uL (0.0-0.7); EOS % 3.2 % (0.0-4.0); HEMOGLOBIN 14.3 g/dL (12.0-18.0); LYMPH # 2.7 K/uL (1.0-4.3); LYMPH % 37.4 % (20.0-40.0); MEAN CELL VOLUME 98.4 fL (80.0-94.0); MEAN CORPUSCULAR HEMOGLOBIN 33.6 pg (27.0-31.0); MEAN CORPUSCULAR HGB CONC 34.2 g/dL (33.0-37.0); MEAN PLATELET VOLUME 7.5 fL (7.2-11.7); MONO # 0.7 K/uL (0.0-0.8); MONO % 10.4 % (0.0-10.0); NEUT # 3.5 K/uL (1.8-7.0); NEUT % 48.4 % (50.0-75.0); RBC 4.27 Mil/uL (4.40-5.90); RED CELL DISTRIBUTION WIDTH 13.5 % (11.5-14.5); WHITE BLOOD COUNT 7.2 K/uL (4.8-10.8)
[2017-08-18 21:38] LABS: ALB/GLOB RATIO 1.2 (1.0-2.1); ALBUMIN 4.2 g/dL (3.5-5.0); ALT/SGPT 165 U/L (21-72); AST/SGOT 142 U/L (17-59); BLOOD UREA NITROGEN 12 mg/dL (9-20); CALCIUM 8.7 mg/dl (8.6-10.4); GFR AFRICAN-AMERICAN > 60; GFR NON-AFRICAN AMERICAN > 60
--- NOTE | 2017-08-19 00:38 | PCM.BM ---
<Obinna Hickman - Last Filed: 08/19/17 00:35> Treatment Plan Problems - Problems identified on initial assessmt Depression Date Initiated: 08/19/17 Time Initiated: 00:20 Assessment reference: NA Status: Active Suicidal Ideation Date Initiated: 08/19/17 Time Initiated: 00:20 Assessment reference: NA Status: Active Substance Abuse Date Initiated: 08/19/17 Time Initiated: 00:20 Assessment reference: NA Status: Active Treatment assets and liabiliti Patient Assests: cooperative, self-reliant, ADL independent, negotiates basic needs Patient Liabilities: live alone, physical pain, financial problems, poor support system, substance abuse - Milieu Protocol Maintain good personal hygiene: daily Encourage regular showers, daily Remind patient to perform daily oral care, daily Assist patient to perform ADL's Maintain personal safety: every shift Educate patient to report safety concerns to staff, every shift Monitor environment for contraband/sharps Medication safety: Monitor for expected outcome, potential side effects: every shift, Assess barriers to learning: every shift, Assess readiness for medication education: every shift <Ricarda Ahmadi - Last Filed: 08/22/17 10:47> - Diagnosis (1) Depression Status: Acute Interventions: 08/22/17 10:47 * Assess/adjust medications daily and /or as needed * See patient on an individual basis 7x/week to assess symptoms of depression * Monitor for side effects & effectiveness of medications * (2) Opiate abuse, continuous Status: Acute Interventions: 08/22/17 10:48 * Assess 7x/week regarding severity of withdrawal * Educate regarding risks, benefits, side effects and alternatives of medications * Use Motivational Interviewing for abstinence * Use CBT for relapse prevention * Medication management for withdrawal symptoms * Encourage medication assisted treatment * <Samantha Mahoney - Last Filed: 08/23/17 11:09> Family Contact Family involvement: Famliy/SO not involved - Goals for Treatment Patient goals for treatment: "I want to go back to my program." Discharge/Continuing Care - Education Needs Education Needs: Patient Medication, Patient Coping Skills, Patient Placement options, Patient Community resources - Discharge Discharge Criteria: Tolerates medication w/o severe side effects, Free of Suicidal thoughts, No longer exhibiting s/s of withdrawal, Reduction of target symptoms Discharge to:: Home - Treatment Team Participation Discussed with Family/SO: No Was Patient/Family/SO present at Treatment Team Meeting: Yes
[2017-08-19] MEDS: Multiple Vitamins Tab PO SCH (10:44)
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
[2017-08-20] MEDS: Multiple Vitamins Tab PO SCH (09:15)
--- NOTE | 2017-08-20 17:24 | PCM.PYCHPN ---
Psychiatric Progress Note - Psychiatric Progress Note Patient seen today, length of contact: 15 minutes Patient Chief Complaint: I have depression and withdrawal symptoms Problems Identified/Issues Discussed: Patient was seen. Chart was reviewed important content noted. Nurse input received. Patient is isolated to his room. He is not attending the groups or individual therapy. He denied alcohol withdrawal symptoms. Denies suicidal or homicidal ideations. Patient does not report hallucinations. No delusions elicited. No paranoia elicited. Patient has remained in good clinical and behavioral control. Symptoms are improving, but needs more time to stabilize. Patient is finding medications beneficial and would like to continue with treatment plan. Patient appreciated that treatment team is trying to help. Medication Change: Yes Medical Record Reviewed: Yes Mental Status Examination - Cognitive Function Orientation: Person, Place, Situation, Time Memory: Intact Attention: Poor Concentration: Poor Association: Loose Fund of Knowledge: WNL Decription of patient's judgement and insights: Limited/limited - Mood Mood: Depressed, Anxious - Affect Affect: Constricted - Speech Speech: Appropriate - Formal Thought Process Formal Thought Process: No Impairment - Suicidal Ideation Suicidal Ideation: No Plan: Denied - Homicidal Ideation Homicidal Ideation: No Plan: denied Goal/Treatment Plan - Goal/Treatment Plan Need for Continued Stay: Discharge may exacerbated symptoms, Severe functional impairment Progress Toward Problem(s) and Goals/Treatment Plan: continue Methadone and Ativan detox Gabapentin for augmentation As needed meds and vitamins Attend groups and activities [place] for abstinence and CBT for relapse prevention Support and psychoeducation Consider and encourage MAT~ Refer to after care Estimated Date of D/C: 08/24/17 - Smoking Cessation Smoking Cessation Initiated: Yes
[2017-08-21] MEDS: Multiple Vitamins Tab PO SCH (09:00)
--- NOTE | 2017-08-21 11:51 | PCM.PYCHPN ---
Psychiatric Progress Note - Psychiatric Progress Note Patient seen today, length of contact: 15 minutes Medication Change: Yes Medical Record Reviewed: Yes Mental Status Examination - Cognitive Function Orientation: Person, Place, Situation, Time Memory: Intact Attention: Poor Concentration: Poor Association: Loose Fund of Knowledge: WNL - Mood Mood: Depressed, Anxious - Affect Affect: Constricted - Speech Speech: Appropriate - Formal Thought Process Formal Thought Process: No Impairment - Suicidal Ideation Suicidal Ideation: No - Homicidal Ideation Homicidal Ideation: No Goal/Treatment Plan - Goal/Treatment Plan Need for Continued Stay: Discharge may exacerbated symptoms, Severe functional impairment Progress Toward Problem(s) and Goals/Treatment Plan: MDD, Recurrent Moderate Opioid use disorder severe Opioid withdrawal Alcohol use severe Alcohol withdrawal Cocaine use mild Methadone and Ativan detox Gabapentin for augmentation As needed meds and vitamins Attend groups and activities [place] for abstinence and CBT for relapse prevention Support and psychoeducation Consider and encourage MAT~ Refer to after care Estimated Date of D/C: 08/24/17 - Smoking Cessation Smoking Cessation Initiated: No
[2017-08-22 06:29] VITALS: O2SAT 95
[2017-08-22] MEDS: Multiple Vitamins Tab PO SCH (09:00)
--- NOTE | 2017-08-22 10:48 | PCM.PYCHPN ---
Psychiatric Progress Note - Psychiatric Progress Note Patient seen today, length of contact: 15 minutes Medication Change: Yes Medical Record Reviewed: Yes Mental Status Examination - Cognitive Function Orientation: Person, Place, Situation, Time Memory: Intact Attention: Poor Concentration: Poor Association: Loose Fund of Knowledge: WNL - Mood Mood: Depressed, Anxious - Affect Affect: Constricted - Speech Speech: Appropriate - Formal Thought Process Formal Thought Process: No Impairment - Suicidal Ideation Suicidal Ideation: No - Homicidal Ideation Homicidal Ideation: No Goal/Treatment Plan - Goal/Treatment Plan Need for Continued Stay: Discharge may exacerbated symptoms, Severe functional impairment Progress Toward Problem(s) and Goals/Treatment Plan: MDD, Recurrent Moderate Opioid use disorder severe Opioid withdrawal Alcohol use severe Alcohol withdrawal Cocaine use mild Methadone and Ativan detox Gabapentin for augmentation As needed meds and vitamins Attend groups and activities [place] for abstinence and CBT for relapse prevention Support and psychoeducation Consider and encourage MAT~ Refer to after care Estimated Date of D/C: 08/24/17
[2017-08-23] MEDS: Multiple Vitamins Tab PO SCH (09:08)
--- NOTE | 2017-08-23 10:17 | PCM.PYCHPN ---
Psychiatric Progress Note - Psychiatric Progress Note Patient seen today, length of contact: 15 minutes Patient Chief Complaint: I am still feeling depressed.' Medication Change: Yes (ativan taper, increase Sertraline) Medical Record Reviewed: Yes Mental Status Examination - Cognitive Function Orientation: Person, Place, Situation, Time Memory: Intact Attention: Poor Concentration: Poor Association: WNL Fund of Knowledge: Poor - Mood Mood: Depressed, Anxious - Affect Affect: Constricted - Speech Speech: Appropriate - Formal Thought Process Formal Thought Process: No Impairment - Suicidal Ideation Suicidal Ideation: No - Homicidal Ideation Homicidal Ideation: No Goal/Treatment Plan - Goal/Treatment Plan Need for Continued Stay: Discharge may exacerbated symptoms, Severe functional impairment Progress Toward Problem(s) and Goals/Treatment Plan: MDD, Recurrent Moderate Opioid use disorder severe Opioid withdrawal Alcohol use severe Alcohol withdrawal Cocaine use mild Methadone and Ativan detox Gabapentin for augmentation As needed meds and vitamins Attend groups and activities [place] for abstinence and CBT for relapse prevention Support and psychoeducation Consider and encourage MAT~ Refer to after care Estimated Date of D/C: 08/24/17 - Smoking Cessation Smoking Cessation Initiated: No
[2017-08-24] MEDS: Multiple Vitamins Tab PO SCH (09:53)
--- NOTE | 2017-08-24 09:54 | PCM.PYCHPN ---
Psychiatric Progress Note - Psychiatric Progress Note Patient seen today, length of contact: 15 minutes Patient Chief Complaint: I am still feeling depressed.' Medication Change: Yes (ativan taper, increase Sertraline) Medical Record Reviewed: Yes Mental Status Examination - Cognitive Function Orientation: Person, Place, Situation, Time Memory: Intact Attention: Poor Concentration: Poor Association: WNL Fund of Knowledge: Poor - Mood Mood: Depressed, Anxious - Affect Affect: Constricted - Speech Speech: Appropriate - Formal Thought Process Formal Thought Process: No Impairment - Suicidal Ideation Suicidal Ideation: No - Homicidal Ideation Homicidal Ideation: No Goal/Treatment Plan - Goal/Treatment Plan Need for Continued Stay: Discharge may exacerbated symptoms, Severe functional impairment Progress Toward Problem(s) and Goals/Treatment Plan: MDD, Recurrent Moderate Opioid use disorder severe Opioid withdrawal Alcohol use severe Alcohol withdrawal Cocaine use mild Methadone and Ativan detox Gabapentin for augmentation As needed meds and vitamins Attend groups and activities [place] for abstinence and CBT for relapse prevention Support and psychoeducation Consider and encourage MAT~ Refer to after care Estimated Date of D/C: 08/24/17
[2017-08-25 06:19] VITALS: BP 106/65; PULSE 54; RESP 20; TEMP 97.6
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
[2017-08-25] MEDS: Multiple Vitamins Tab PO SCH (10:13)
== END 2017-08-25 11:15 | disposition home or self-care (01) | DRG 744 ==
LOC: C.ER 19:06 → C.9E 22:55 → C.5E 08-19 00:04
PROVIDERS: ADMIT Psychiatry & Neurology Psychiatry; ATTEND Psychiatry & Neurology Psychiatry
PROC: HZ2ZZZZ Detoxification Services for Substance Abuse Treatment (ICD-10-PCS; principal; 2017-08-18)
PROC: HZ52ZZZ Individual Psychotherapy for Substance Abuse Treatment, Cognitive-Behavioral (ICD-10-PCS; 2017-08-18)
PROC: HZ42ZZZ Group Counseling for Substance Abuse Treatment, Cognitive-Behavioral (ICD-10-PCS; 2017-08-18)
PROC: HZ59ZZZ Individual Psychotherapy for Substance Abuse Treatment, Supportive (ICD-10-PCS; 2017-08-18)
PROC: HZ56ZZZ Individual Psychotherapy for Substance Abuse Treatment, Psychoeducation (ICD-10-PCS; 2017-08-18)
PROC: HZ46ZZZ Group Counseling for Substance Abuse Treatment, Psychoeducation (ICD-10-PCS; 2017-08-18)
DX: F11.23 Opioid dependence with withdrawal (principal); F33.1 Major depressive disorder, recurrent, moderate; R45.851 Suicidal ideations; F10.230 Alcohol dependence with withdrawal, uncomplicated; F10.220 Alcohol dependence with intoxication, uncomplicated; Y90.6 Blood alcohol level of 120-199 mg/100 ml; F14.10 Cocaine abuse, uncomplicated

== ENCOUNTER 2017-08-26 01:37 | Emergency (ER) | payer MEDICAID ==
[2017-08-26 01:38] VITALS: BMI 29.0
[2017-08-26 02:32] VITALS: RESP 18; O2SAT 95
--- NOTE | 2017-08-26 02:58 | C.PDOC ---
History Of Present Illness 56 year old male with a Hx of anxiety presents to the ER after his sister did not pick him up which mad him anxious. Patient reports he usually takes xanax for his anxiety but has ran out. Denies suicidal or homicidal ideation. Time Seen by Provider: 08/26/17 02:40 Chief Complaint (Nursing): Anxiety History Per: Patient History/Exam Limitations: no limitations Onset/Duration Of Symptoms: Hrs Current Symptoms Are (Timing): Still Present Suicide/Self Injury Attempted (Context): None Associated Symptoms: Anxiety. denies: Depression, Suicidal Thoughts, Suicidal Plan Recent travel outside of the [place]: No Past Medical History Reviewed: Historical Data, Nursing Documentation, Vital Signs Vital Signs: Last Vital Signs Temp 97.2 F L 08/26/17 02:16 Pulse 83 08/26/17 02:16 Resp 18 08/26/17 02:16 BP 143/88 08/26/17 02:16 Pulse Ox 95 08/26/17 04:37 - Medical History PMH: Anxiety, Arthritis, Back Problems, Bronchitis, COPD, Depression, Fractures (fx left leg), Gastrointestinal Ulcer, Gall Bladder Disease, HTN, Kidney Stones , Chronic Kidney Disease, Seizures (alcohol induced) - [facility] Procedures ALCOHOL DETOXIFICATION (11/06/14) COMBINED ALCOHOL AND DRUG DETOXIFICATION (05/05/15) DETOXIFICATION SERVICES FOR SUBSTANCE ABUSE TREATMENT (07/08/17) GROUP EVENTS ASSOCIATE FOR SUBSTANCE ABUSE TREATMENT, PSYCHOEDUCATION (03/17/17) GROUP PSYCHOTHERAPY (05/24/16) INDIV PSYCHOTHERAPY FOR SUBSTANCE ABUSE TREATMENT, SUPPORT (07/08/17) INDIV PSYCHOTHERAPY FOR SUBSTANCE ABUSE, COGNITIV BEHAVIORAL (07/08/17) INDIV PSYCHOTHERAPY FOR SUBSTANCE ABUSE, MOTIVATION ENHANCE (06/15/17) INDIV PSYCHOTHERAPY FOR SUBSTANCE ABUSE, PSYCHOEDUCATION (07/08/17) MEDICATION MANAGEMENT (03/17/17) MEDS MGMT FOR SUBSTANCE ABUSE TREATMENT, OTH REPL MED (06/15/17) PHARMACOTHERAPY FOR SUBSTANCE ABUSE, METHADONE MAINT (07/08/17) Family History: States: Unknown Family Hx - Social History Hx Tobacco Use: Yes Hx Alcohol Use: Yes Hx Substance Use: Yes - Immunization History Hx Tetanus Toxoid Vaccination: No Hx Influenza Vaccination: Yes (9 months ago) Hx Pneumococcal Vaccination: No Review Of Systems Constitutional: Negative for: Fever, Chills Cardiovascular: Negative for: Chest Pain, Palpitations Respiratory: Negative for: Shortness of Breath Psych: Positive for: Anxiety. Negative for: Suicidal ideation, Other ( Homicidal ideation) Physical Exam - Physical Exam Appears: Non-toxic Skin: Normal Color, Warm, Dry Head: Atraumatic, Normacephalic Eye(s): bilateral: Normal Inspection Oral Mucosa: Moist Chest: Symmetrical, No Tenderness Cardiovascular: Rhythm Regular Respiratory: Normal Breath Sounds, No Rales, No Rhonchi, No Wheezing Gastrointestinal/Abdominal: Soft, No Tenderness Neurological/Psych: Oriented x3, Normal Speech ED Course And Treatment ECG: Interpreted By Me, Viewed By Me ECG Rhythm: Sinus Rhythm ECG Interpretation: Normal Interpretation Of ECG: No acute changes Rate From EC O2 Sat by Pulse Oximetry: 95 (Room air) Pulse Ox Interpretation: Normal Progress Note: EKG ordered. Xanax administered. On reevaluation, patient reports he is no longer anxious and feels comfortable with going home. Will discharge home with instructions to follow up with PMD. Disposition - Disposition Referrals: Grayson Johnson MD [Medical Doctor] - Disposition: HOME/ ROUTINE Disposition Time: 05:40 Condition: STABLE Additional Instructions: Follow up with your PMD and psychiatrist within 1-2 days. Return to ED if feel worse. Prescriptions: ALPRAZolam [Xanax] 0.25 mg PO TID #15 tab Instructions: Anxiety (ED) Forms: [facility] (Amharic) - Clinical Impression Clinical Impression: Anxiety - PA / BUSINESS ANALYST PROJECT MANAGER / Resident Statement MD/DO has reviewed & agrees with the documentation as recorded. - Scribe Statement The provider has reviewed the documentation as recorded by the Scribmaría Dumont All medical record entries made by the Scribe were at my direction and personally dictated by me. I have reviewed the chart and agree that the record accurately reflects my personal performance of the history, physical exam, medical decision making, and the department course for this patient. I have also personally directed, reviewed, and agree with the discharge instructions and disposition.
[2017-08-26 05:55] VITALS: BP 140/86; PULSE 86; TEMP 97.9
--- NOTE | 2017-08-28 15:05 | CARD ---
APPROVED REPORT EKG Measurement Heart [id number] <Conclusion> Normal sinus rhythm Normal ECG
== END 2017-08-26 06:16 | disposition home or self-care (01) ==
LOC: C.ER 01:37
DX: F41.9 Anxiety disorder, unspecified (principal)

== ENCOUNTER 2017-08-31 22:30 | Emergency (ER) | payer MEDICAID ==
[2017-08-31 22:31] VITALS: BMI 28.2
[2017-08-31 23:04] VITALS: RESP 20
--- NOTE | 2017-08-31 23:23 | C.PDOC ---
History Of Present Illness 56 year old male with history of anxiety presents to the ED c/o sharp like left sided CP for the past several hours. Patient denies any fever, other physical complaints. Time Seen by Provider: 08/31/17 23:01 Chief Complaint (Nursing): Chest Pain History Per: Patient History/Exam Limitations: no limitations Onset/Duration Of Symptoms: Days Current Symptoms Are (Timing): Still Present Quality: Sharp Modifying Factors: None Exacerbating Factors: None Recent travel outside of the [place]: No Additional History Per: Patient Past Medical History Reviewed: Historical Data, Nursing Documentation, Vital Signs Vital Signs: Last Vital Signs Temp 97.1 F L 09/01/17 04:14 Pulse 66 09/01/17 04:14 Resp 20 09/01/17 04:14 BP 131/70 09/01/17 04:14 Pulse Ox 96 09/01/17 04:40 - Medical History PMH: Anxiety, Arthritis, Back Problems, Bronchitis, COPD, Depression, Fractures (fx left leg), Gastrointestinal Ulcer, Gall Bladder Disease, HTN, Kidney Stones , Chronic Kidney Disease, Seizures (alcohol induced) Denies: Diabetes, Hepatitis, HIV, Sexually Transmitted Disease Surgical History: No Surg Hx - [facility] Procedures ALCOHOL DETOXIFICATION (11/06/14) COMBINED ALCOHOL AND DRUG DETOXIFICATION (05/05/15) DETOXIFICATION SERVICES FOR SUBSTANCE ABUSE TREATMENT (08/18/17) GROUP FREIGHT ASSOCIATE FOR SUBSTANCE ABUSE TREATMENT, PSYCHOEDUCATION (08/18/17) GROUP FREIGHT ASSOCIATE FOR SUBSTANCE ABUSE, COGNITIVE BEHAVIORAL (08/18/17) GROUP PSYCHOTHERAPY (05/24/16) INDIV PSYCHOTHERAPY FOR SUBSTANCE ABUSE TREATMENT, SUPPORT (08/18/17) INDIV PSYCHOTHERAPY FOR SUBSTANCE ABUSE, COGNITIV BEHAVIORAL (08/18/17) INDIV PSYCHOTHERAPY FOR SUBSTANCE ABUSE, MOTIVATION ENHANCE (06/15/17) INDIV PSYCHOTHERAPY FOR SUBSTANCE ABUSE, PSYCHOEDUCATION (08/18/17) MEDICATION MANAGEMENT (03/17/17) MEDS MGMT FOR SUBSTANCE ABUSE TREATMENT, OTH REPL MED (06/15/17) PHARMACOTHERAPY FOR SUBSTANCE ABUSE, METHADONE MAINT (07/08/17) Family History: States: Unknown Family Hx - Social History Hx Tobacco Use: Yes Hx Alcohol Use: Yes Hx Substance Use: Yes - Immunization History Hx Tetanus Toxoid Vaccination: No Hx Influenza Vaccination: Yes (9 months ago) Hx Pneumococcal Vaccination: No Review Of Systems Except As Marked, All Systems Reviewed And Found Negative. Cardiovascular: Positive for: Chest Pain, Palpitations Physical Exam - Physical Exam Appears: Non-toxic, No Acute Distress Skin: Normal Color, Warm, Dry Head: Atraumatic, Normacephalic Eye(s): bilateral: Normal Inspection Nose: No Discharge, No Deformity Oral Mucosa: Moist Neck: Normal ROM, Supple Chest: Symmetrical Cardiovascular: Rhythm Regular, No Murmur Respiratory: Normal Breath Sounds, No Rales, No Rhonchi, No Wheezing Gastrointestinal/Abdominal: Soft, No Tenderness, No Guarding, No Rebound Extremity: Normal ROM, No Pedal Edema, No Calf Tenderness, No Deformity, No Swelling Neurological/Psych: Oriented x3, Normal Speech, Normal Cognition Gait: Steady ED Course And Treatment - Laboratory Results Result Diagrams: 08/31/17 23:06 08/31/17 23:40 ECG: Interpreted By Me, Viewed By Me ECG Rhythm: Sinus Rhythm ECG Interpretation: Normal Interpretation Of ECG: no ST or T wave changes Rate From EC O2 Sat by Pulse Oximetry: 96 (On RA) Pulse Ox Interpretation: Normal Medical Decision Making Medical Decision Making: Impression : chest pain Plan: * EKG * Labs * CXR * UA atypcial pain x 3 hours. repeat trop neg. no ekg changes trop neg. cxr neg as read by me. Disposition - Disposition Referrals: [facility] [Outside] [facility] [Outside] Kyrie Neumann MD [Staff Provider] - Disposition: HOME/ ROUTINE Disposition Time: 04:38 Condition: STABLE Additional Instructions: follow up with specialist. return to er with worsening symptoms or concerns. Instructions: Chest Pain (DC) Forms: [employer] (South Korean) - Clinical Impression Clinical Impression: Chest pain - Scribe Statement The provider has reviewed the documentation as recorded by the Scribe Nito Cameron All medical record entries made by the Scribe were at my direction and personally dictated by me. I have reviewed the chart and agree that the record accurately reflects my personal performance of the history, physical exam, medical decision making, and the department course for this patient. I have also personally directed, reviewed, and agree with the discharge instructions and disposition.
[2017-08-31 23:45] LABS: BASO # 0.1 K/uL (0.0-0.2); BASO % 0.9 % (0.0-2.0); EOS # 0.3 K/uL (0.0-0.7); EOS % 4.3 % (0.0-4.0); HEMOGLOBIN 12.9 g/dL (12.0-18.0); LYMPH # 3.5 K/uL (1.0-4.3); LYMPH % 48.1 % (20.0-40.0); MEAN CELL VOLUME 98.2 fL (80.0-94.0); MEAN CORPUSCULAR HEMOGLOBIN 34.4 pg (27.0-31.0); MEAN PLATELET VOLUME 7.8 fL (7.2-11.7); MONO # 0.9 K/uL (0.0-0.8); NEUT # 2.5 K/uL (1.8-7.0); NEUT % 34.7 % (50.0-75.0); RBC 3.74 Mil/uL (4.40-5.90); RED CELL DISTRIBUTION WIDTH 13.3 % (11.5-14.5); WHITE BLOOD COUNT 7.3 K/uL (4.8-10.8)
[2017-08-31 23:57] LABS: PROTHROMBIN TIME 11.5 SECONDS (9.7-12.2)
[2017-08-31 23:58] LABS: ALB/GLOB RATIO 1.2 (1.0-2.1); ALBUMIN 4.1 g/dL (3.5-5.0); ALT/SGPT 197 U/L (21-72); AST/SGOT 155 U/L (17-59); BLOOD UREA NITROGEN 18 mg/dL (9-20); CALCIUM 8.5 mg/dl (8.6-10.4); GFR AFRICAN-AMERICAN > 60; GFR NON-AFRICAN AMERICAN > 60
[2017-09-01 00:35] LABS: SQUAMOUS EPITHIAL < 1 /hpf (0-5); URINE BACTERIA FEW (<OCC); URINE BILIRUBIN NEGATIVE (NEGATIVE); URINE BLOOD NEGATIVE (NEGATIVE); URINE CLARITY Clear (Clear); URINE COLOR Yellow (YELLOW); URINE GLUCOSE (UA) NORMAL (Normal); URINE LEUKOCYTE ESTERASE NEG Leu/uL (Negative); URINE NITRATE NEGATIVE (NEGATIVE); URINE PROTEIN NEGATIVE (NEGATIVE)
[2017-09-01 04:14] VITALS: BP 131/70; PULSE 66; TEMP 97.1
[2017-09-01 04:40] VITALS: O2SAT 96
--- NOTE | 2017-09-01 08:44 | RAD ---
HISTORY: chest pain COMPARISON: Chest x-ray performed 07/07/17 TECHNIQUE: Chest PA and lateral FINDINGS: Examination limited by habitus. LUNGS: No focal consolidation. Please note that chest x-ray has limited sensitivity for the detection of pulmonary masses. PLEURA: No significant pleural effusion identified. No definite pneumothorax . CARDIOVASCULAR: Borderline cardiomegaly. OSSEOUS STRUCTURES: No acute osseous abnormality identified. VISUALIZED UPPER ABDOMEN: Unremarkable. OTHER FINDINGS: None. IMPRESSION: No focal consolidation, significant pleural effusion, or definite pneumothorax identified.
--- NOTE | 2017-09-01 11:11 | CARD ---
APPROVED REPORT EKG Measurement Heart [id number] <Conclusion> Normal sinus rhythm Normal ECG
== END 2017-09-01 05:16 | disposition home or self-care (01) ==
LOC: C.ER 22:30
DX: R07.9 Chest pain, unspecified (principal); F41.9 Anxiety disorder, unspecified; I12.9 Hypertensive chronic kidney disease with stage 1 through stage 4 chronic kidney disease, or unspecified chronic kidney disease; F17.210 Nicotine dependence, cigarettes, uncomplicated; N18.9 Chronic kidney disease, unspecified
CPT/HCPCS: 71046; 80053; 81001; 84484; 85025; 85610; 85730; 93005; 96374; 99285; J2405

== ENCOUNTER 2017-09-01 23:28 | Emergency (ER) | payer MEDICAID ==
[2017-09-01 23:29] VITALS: BMI 28.2
[2017-09-01 23:47] VITALS: BP 124/86; PULSE 81; RESP 17; TEMP 98.5; O2SAT 100
--- NOTE | 2017-09-02 01:17 | C.PDOC ---
History Of Present Illness pt found with alcohol on breath. Pt states he has been drinking. denies any suicidal or homicidal ideation. Ambulating without difficulty. wants to go home. Chief Complaint (Nursing): Substance Abuse History Per: Patient History/Exam Limitations: no limitations Onset/Duration Of Symptoms: Hrs Current Symptoms Are (Timing): Better Suicide/Self Injury Attempted (Context): None Modifying Factor(s): Alcohol Severity: None Associated Symptoms: denies: Anger, Anxiety, Agitation Involuntary Hold By: None Recent travel outside of the [place]: No Additional History Per: Patient Past Medical History Reviewed: Historical Data, Nursing Documentation, Vital Signs Vital Signs: Last Vital Signs Temp 98.5 F 09/01/17 23:44 Pulse 81 09/01/17 23:44 Resp 17 09/01/17 23:44 BP 124/86 09/01/17 23:44 Pulse Ox 100 09/01/17 23:44 - Medical History PMH: Anxiety, Arthritis, Back Problems, Bronchitis, COPD, Depression, Fractures (fx left leg), Gastrointestinal Ulcer, Gall Bladder Disease, HTN, Kidney Stones , Chronic Kidney Disease, Seizures (alcohol induced) Denies: Diabetes, Hepatitis, HIV, Sexually Transmitted Disease - [facility] ALCOHOL DETOXIFICATION (11/06/14) COMBINED ALCOHOL AND DRUG DETOXIFICATION (05/05/15) DETOXIFICATION SERVICES FOR SUBSTANCE ABUSE TREATMENT (08/18/17) GROUP EMERGENCY DEPARTMENT FOR SUBSTANCE ABUSE TREATMENT, PSYCHOEDUCATION (08/18/17) GROUP EMERGENCY DEPARTMENT FOR SUBSTANCE ABUSE, COGNITIVE BEHAVIORAL (08/18/17) GROUP PSYCHOTHERAPY (05/24/16) INDIV PSYCHOTHERAPY FOR SUBSTANCE ABUSE TREATMENT, SUPPORT (08/18/17) INDIV PSYCHOTHERAPY FOR SUBSTANCE ABUSE, COGNITIV BEHAVIORAL (08/18/17) INDIV PSYCHOTHERAPY FOR SUBSTANCE ABUSE, MOTIVATION ENHANCE (06/15/17) INDIV PSYCHOTHERAPY FOR SUBSTANCE ABUSE, PSYCHOEDUCATION (08/18/17) MEDICATION MANAGEMENT (03/17/17) MEDS MGMT FOR SUBSTANCE ABUSE TREATMENT, OTH REPL MED (06/15/17) PHARMACOTHERAPY FOR SUBSTANCE ABUSE, METHADONE MAINT (07/08/17) Family History: States: No Known Family Hx - Social History Hx Tobacco Use: Yes Hx Alcohol Use: Yes Hx Substance Use: Yes - Immunization History Hx Tetanus Toxoid Vaccination: No Hx Influenza Vaccination: Yes (9 months ago) Hx Pneumococcal Vaccination: No Review Of Systems Constitutional: Negative for: Fever, Chills Cardiovascular: Negative for: Chest Pain Respiratory: Negative for: Shortness of Breath Gastrointestinal: Negative for: Nausea Musculoskeletal: Negative for: Back Pain Skin: Negative for: Rash Neurological: Negative for: Weakness Psych: Negative for: Anxiety, Suicidal ideation Physical Exam - Physical Exam Appears: Non-toxic, No Acute Distress Skin: Warm Head: Normacephalic Eye(s): bilateral: Normal Inspection Oral Mucosa: Moist Neck: Supple Cardiovascular: Rhythm Regular Respiratory: No Rales, No Rhonchi, No Wheezing Gastrointestinal/Abdominal: Soft, No Tenderness Extremity: No Tenderness Neurological/Psych: Oriented x3, Normal Speech, Normal Cognition Gait: Steady ED Course And Treatment O2 Sat by Pulse Oximetry: 100 Pulse Ox Interpretation: Normal Progress Note: pt wants to go home., Ambulating without difficulty, aaox3. appears clinically sober Reevaluation Time: 01:15 Reassessment Condition: Improved Disposition Counseled Patient/Family Regarding: Studies Performed, Diagnosis, Need For Followup - Disposition Referrals: [facility] [Outside] Disposition: HOME/ ROUTINE Disposition Time: 01:15 Condition: FAIR Instructions: Alcohol Intoxication (DC) Forms: [facility] (Ugandan) - Clinical Impression Clinical Impression: Alcohol intoxication
== END 2017-09-02 01:40 | disposition home or self-care (01) ==
LOC: SUPCPDRO 23:28 → C.ER 23:28
DX: F10.129 Alcohol abuse with intoxication, unspecified (principal); Y90.9 Presence of alcohol in blood, level not specified

== ENCOUNTER 2017-09-04 20:24 | Emergency (ER) | payer MEDICAID ==
[2017-09-04 20:24] VITALS: BMI 28.2
[2017-09-04 21:37] VITALS: BP 112/73; RESP 20; TEMP 98.2; O2SAT 96
--- NOTE | 2017-09-04 22:56 | C.PDOC ---
History Of Present Illness 56 y/o male with history of ETOH abuse presents to ED with complaints of left hand and swelling. Patient states he fell "few days ago"and hurt hand, requesting hand to be "taped up". Patient denies weakness, numbness, tingling or any other complaints at this time. Time Seen by Provider: 09/04/17 21:41 Chief Complaint (Nursing): Upper Extremity Problem/Injury History Per: Patient History/Exam Limitations: no limitations Onset/Duration Of Symptoms: Days Current Symptoms Are (Timing): Still Present Quality: "Pain" Past Medical History Reviewed: Historical Data, Nursing Documentation, Vital Signs Vital Signs: Last Vital Signs Temp 98.2 F 09/04/17 21:31 Pulse 72 09/04/17 23:00 Resp 20 09/04/17 23:00 BP 112/73 09/04/17 23:00 Pulse Ox 96 09/05/17 07:35 - Medical History PMH: Anxiety, Arthritis, Back Problems, Bronchitis, COPD, Depression, Fractures (fx left leg), Gastrointestinal Ulcer, Gall Bladder Disease, HTN, Kidney Stones , Chronic Kidney Disease, Seizures (alcohol induced) Surgical History: No Surg Hx - [facility] Procedures ALCOHOL DETOXIFICATION (11/06/14) COMBINED ALCOHOL AND DRUG DETOXIFICATION (05/05/15) DETOXIFICATION SERVICES FOR SUBSTANCE ABUSE TREATMENT (08/18/17) GROUP INTENSIVE CARE UNIT NURSE FOR SUBSTANCE ABUSE TREATMENT, PSYCHOEDUCATION (08/18/17) GROUP INTENSIVE CARE UNIT NURSE FOR SUBSTANCE ABUSE, COGNITIVE BEHAVIORAL (08/18/17) GROUP PSYCHOTHERAPY (05/24/16) INDIV PSYCHOTHERAPY FOR SUBSTANCE ABUSE TREATMENT, SUPPORT (08/18/17) INDIV PSYCHOTHERAPY FOR SUBSTANCE ABUSE, COGNITIV BEHAVIORAL (08/18/17) INDIV PSYCHOTHERAPY FOR SUBSTANCE ABUSE, MOTIVATION ENHANCE (06/15/17) INDIV PSYCHOTHERAPY FOR SUBSTANCE ABUSE, PSYCHOEDUCATION (08/18/17) MEDICATION MANAGEMENT (03/17/17) MEDS MGMT FOR SUBSTANCE ABUSE TREATMENT, OTH REPL MED (06/15/17) PHARMACOTHERAPY FOR SUBSTANCE ABUSE, METHADONE MAINT (07/08/17) Family History: States: No Known Family Hx - Social History Hx Tobacco Use: Yes Hx Alcohol Use: Yes Hx Substance Use: Yes - Immunization History Hx Tetanus Toxoid Vaccination: No Hx Influenza Vaccination: Yes (9 months ago) Hx Pneumococcal Vaccination: No Review Of Systems Cardiovascular: Negative for: Chest Pain Musculoskeletal: Positive for: Hand Pain. Negative for: Shoulder Pain, Leg Pain Skin: Negative for: Rash Neurological: Negative for: Weakness, Numbness Physical Exam - Physical Exam Appears: Other (ETOH on breath ) Skin: Warm, Dry, No Rash Head: Atraumatic, Normacephalic Oral Mucosa: Moist Neck: Normal ROM, Supple Extremity: Tenderness (to 3rd and 4th left fingers), Capillary Refill (<2 seconds), No Deformity, Swelling (to 3rd and 4th left fingers) Pulses: Left Radial: Normal, Right Radial: Normal Neurological/Psych: Oriented x3, Normal Motor, Normal Sensation Gait: Steady ED Course And Treatment O2 Sat by Pulse Oximetry: 96 (RA) Pulse Ox Interpretation: Normal Medical Decision Making Medical Decision Making: Progress: Xray showed arthritic changes but no fracture or dislocation noted Patient refused splint and was discharged home. Disposition - Disposition Disposition: HOME/ ROUTINE Disposition Time: 22:56 Condition: STABLE Additional Instructions: Please follow up with PMD Take tylenol or motrin for pain Return to ER if worse Instructions: Contusion in Adults (ED), Arthralgia (ED) Forms: [employer] (Gambian) - Clinical Impression Clinical Impression: Hand pain, left, Contusion of hand, left - PA / PLATING TANK OPERATOR / Resident Statement MD/DO has reviewed & agrees with the documentation as recorded. - Scribe Statement The provider has reviewed the documentation as recorded by the Isidra Coulter All medical record entries made by the Lenoreibmaría were at my direction and personally dictated by me. I have reviewed the chart and agree that the record accurately reflects my personal performance of the history, physical exam, medical decision making, and the department course for this patient. I have also personally directed, reviewed, and agree with the discharge instructions and disposition.
[2017-09-04 23:01] VITALS: PULSE 72
--- NOTE | 2017-09-05 09:35 | RAD ---
PROCEDURE: Left Hand Radiographs. HISTORY: pain, trauma, left 3rd,4th fingers COMPARISON: None. FINDINGS: BONES: Finger is held in mild flexion ; according to technologist's note, these are the best possible images obtainable given patient's ability to now cooperate. No fracture. JOINTS: Normal. No osteoarthritic changes. SOFT TISSUES: Normal. OTHER FINDINGS: None. IMPRESSION: No fracture
== END 2017-09-04 23:01 | disposition home or self-care (01) ==
LOC: C.ER 20:24
DX: S60.222A Contusion of left hand, initial encounter (principal); W18.30XA Fall on same level, unspecified, initial encounter; Y92.9 Unspecified place or not applicable; M79.642 Pain in left hand

== ENCOUNTER 2017-09-05 23:59 | Emergency (ER) | payer MEDICAID ==
[2017-09-05 23:59] VITALS: BMI 28.2
[2017-09-06 00:32] VITALS: RESP 20
--- NOTE | 2017-09-06 02:42 | C.PDOC ---
History Of Present Illness 56 year old male presents to the ER with a complaint of left hand pain. Patient was seen here yesterday for the same complaint; he had an x-ray done that was negative for any acute fractures or dislocations. Patient is now here again requesting pain medication. Denies new trauma, weakness, or numbness. Time Seen by Provider: 09/06/17 01:07 Chief Complaint (Nursing): Finger,Hand,&Wrist History Per: Patient History/Exam Limitations: no limitations Onset/Duration Of Symptoms: Days Current Symptoms Are (Timing): Still Present Exacerbating Factor(s): Nothing Recent travel outside of the [place]: No Past Medical History Reviewed: Historical Data, Nursing Documentation, Vital Signs Vital Signs: Last Vital Signs Temp 98.1 F 09/06/17 02:48 Pulse 72 09/06/17 02:48 Resp 20 09/06/17 02:48 BP 132/81 09/06/17 02:48 Pulse Ox 98 09/06/17 02:48 - Medical History PMH: Anxiety, Arthritis, Back Problems, Bronchitis, COPD, Depression, Fractures (fx left leg), Gastrointestinal Ulcer, Gall Bladder Disease, HTN, Kidney Stones , Chronic Kidney Disease, Seizures (alcohol induced) - [facility] Procedures ALCOHOL DETOXIFICATION (11/06/14) COMBINED ALCOHOL AND DRUG DETOXIFICATION (05/05/15) DETOXIFICATION SERVICES FOR SUBSTANCE ABUSE TREATMENT (08/18/17) GROUP RECRUITMENT MANAGER FOR SUBSTANCE ABUSE TREATMENT, PSYCHOEDUCATION (08/18/17) GROUP RECRUITMENT MANAGER FOR SUBSTANCE ABUSE, COGNITIVE BEHAVIORAL (08/18/17) GROUP PSYCHOTHERAPY (05/24/16) INDIV PSYCHOTHERAPY FOR SUBSTANCE ABUSE TREATMENT, SUPPORT (08/18/17) INDIV PSYCHOTHERAPY FOR SUBSTANCE ABUSE, COGNITIV BEHAVIORAL (08/18/17) INDIV PSYCHOTHERAPY FOR SUBSTANCE ABUSE, MOTIVATION ENHANCE (06/15/17) INDIV PSYCHOTHERAPY FOR SUBSTANCE ABUSE, PSYCHOEDUCATION (08/18/17) MEDICATION MANAGEMENT (03/17/17) MEDS MGMT FOR SUBSTANCE ABUSE TREATMENT, OTH REPL MED (06/15/17) PHARMACOTHERAPY FOR SUBSTANCE ABUSE, METHADONE MAINT (07/08/17) Family History: States: Unknown Family Hx - Social History Hx Tobacco Use: Yes Hx Alcohol Use: Yes Hx Substance Use: Yes - Immunization History Hx Tetanus Toxoid Vaccination: No Hx Influenza Vaccination: Yes (9 months ago) Hx Pneumococcal Vaccination: No Review Of Systems Musculoskeletal: Positive for: Hand Pain Neurological: Negative for: Weakness, Numbness Physical Exam - Physical Exam Appears: Non-toxic, No Acute Distress, Other (Inebriated but awake and alert) Skin: Normal Color, Warm, Dry Head: Atraumatic, Normacephalic Eye(s): bilateral: Normal Inspection Extremity: Normal ROM (x4), Capillary Refill (<2 seconds), No Deformity, Other ( Minimal swelling and tenderness to left 3rd and 4th fingers) Pulses: Left Radial: Normal, Right Radial: Normal Neurological/Psych: Oriented x3, Normal Speech, Normal Motor, Normal Sensation Gait: Steady ED Course And Treatment O2 Sat by Pulse Oximetry: 99 (Room air) Pulse Ox Interpretation: Normal Progress Note: Tylenol administered for pain. Patient instructed to follow up with PMD for further evaluation. Disposition Counseled Patient/Family Regarding: Diagnosis, Need For Followup - Disposition Disposition: HOME/ ROUTINE Disposition Time: 02:39 Condition: STABLE Additional Instructions: Please follow up with PMD Return to ER if worse Instructions: Contusion in Adults (ED) Forms: [employer] (Saudi Arabian) - Clinical Impression Clinical Impression: Hand contusion, Alcohol abuse - PA / ROLL OPERATOR / Resident Statement MD/DO has reviewed & agrees with the documentation as recorded. - Scribe Statement The provider has reviewed the documentation as recorded by the Scribe Kayden Dumont All medical record entries made by the Scribe were at my direction and personally dictated by me. I have reviewed the chart and agree that the record accurately reflects my personal performance of the history, physical exam, medical decision making, and the department course for this patient. I have also personally directed, reviewed, and agree with the discharge instructions and disposition.
[2017-09-06 02:49] VITALS: BP 132/81; PULSE 72; TEMP 98.1
[2017-09-06 04:25] VITALS: O2SAT 99
== END 2017-09-06 02:49 | disposition home or self-care (01) ==
LOC: C.ER 23:59
DX: S60.222D Contusion of left hand, subsequent encounter (principal); W18.30XD Fall on same level, unspecified, subsequent encounter; F10.10 Alcohol abuse, uncomplicated; Y90.9 Presence of alcohol in blood, level not specified

== ENCOUNTER 2017-09-08 17:04 | Emergency (ER) | payer MEDICAID ==
[2017-09-08 17:04] VITALS: BMI 28.2
[2017-09-08] MEDS ORDERED: Sodium Chloride 0.9% 1,000 ML IV ONE (18:49)
--- NOTE | 2017-09-08 18:51 | C.PDOC ---
History Of Present Illness 56 yr old male with history of alcohol abuse, presents to the ER with complaints of abdominal pain. Patient states he has been consuming alcohol. Patient also reports of left hand pain, with neg imaging done which were negative. Denies fever, nausea, vomiting, diarrhea, constipation, weakness or numbness. Time Seen by Provider: 09/08/17 18:47 Chief Complaint (Nursing): Abdominal Pain History Per: Patient History/Exam Limitations: no limitations Onset/Duration Of Symptoms: Days Current Symptoms Are (Timing): Still Present Past Medical History Reviewed: Historical Data, Nursing Documentation, Vital Signs Vital Signs: Last Vital Signs Temp 98 F 09/08/17 21:05 Pulse 70 09/08/17 21:05 Resp 16 09/08/17 21:05 BP 120/81 09/08/17 21:05 Pulse Ox 98 09/08/17 21:05 - Medical History PMH: Anxiety, Arthritis, Back Problems, Bronchitis, COPD, Depression, Fractures (fx left leg), Gastrointestinal Ulcer, Gall Bladder Disease, HTN, Kidney Stones , Chronic Kidney Disease, Seizures (alcohol induced) - [facility] Procedures ALCOHOL DETOXIFICATION (11/06/14) COMBINED ALCOHOL AND DRUG DETOXIFICATION (05/05/15) DETOXIFICATION SERVICES FOR SUBSTANCE ABUSE TREATMENT (08/18/17) GROUP DEGREASING SOLUTION RECLAIMER FOR SUBSTANCE ABUSE TREATMENT, PSYCHOEDUCATION (08/18/17) GROUP DEGREASING SOLUTION RECLAIMER FOR SUBSTANCE ABUSE, COGNITIVE BEHAVIORAL (08/18/17) GROUP PSYCHOTHERAPY (05/24/16) INDIV PSYCHOTHERAPY FOR SUBSTANCE ABUSE TREATMENT, SUPPORT (08/18/17) INDIV PSYCHOTHERAPY FOR SUBSTANCE ABUSE, COGNITIV BEHAVIORAL (08/18/17) INDIV PSYCHOTHERAPY FOR SUBSTANCE ABUSE, MOTIVATION ENHANCE (06/15/17) INDIV PSYCHOTHERAPY FOR SUBSTANCE ABUSE, PSYCHOEDUCATION (08/18/17) MEDICATION MANAGEMENT (03/17/17) MEDS MGMT FOR SUBSTANCE ABUSE TREATMENT, OTH REPL MED (06/15/17) PHARMACOTHERAPY FOR SUBSTANCE ABUSE, METHADONE MAINT (07/08/17) Family History: States: No Known Family Hx - Social History Hx Tobacco Use: Yes Hx Alcohol Use: Yes Hx Substance Use: Yes - Immunization History Hx Tetanus Toxoid Vaccination: No Hx Influenza Vaccination: Yes (9 months ago) Hx Pneumococcal Vaccination: No Review Of Systems Except As Marked, All Systems Reviewed And Found Negative. Constitutional: Negative for: Fever Gastrointestinal: Positive for: Abdominal Pain. Negative for: Nausea, Vomiting , Diarrhea, Constipation Musculoskeletal: Positive for: Hand Pain (left) Neurological: Negative for: Weakness, Numbness Physical Exam - Physical Exam Appears: Non-toxic, No Acute Distress Skin: Warm, Dry, No Rash Oral Mucosa: Moist Chest: Symmetrical, No Tenderness Cardiovascular: Rhythm Regular, No Murmur Respiratory: Normal Breath Sounds, No Rales, No Rhonchi, No Stridor, No Wheezing Gastrointestinal/Abdominal: Soft, Tenderness (minimal epigastric tenderness), No Guarding, No Rebound Extremity: Normal ROM, Tenderness (mild tenderness to the left hand), Capillary Refill (<2 secs), No Swelling Neurological/Psych: Oriented x3, Normal Speech, Normal Motor, Normal Sensation ED Course And Treatment - Laboratory Results Result Diagrams: 09/08/17 20:00 09/08/17 20:00 O2 Sat by Pulse Oximetry: 95 (RA) Pulse Ox Interpretation: Normal Medical Decision Making Medical Decision Making: suspect alcohol gasritis, r/o pancreatitis PLAN: * CBC * CMP * Urinalysis * Protonix IVP * Sodium Chloride IV pt reassessed sleeping in nad. abd soft no ttp. steady gait adviseoutpt fu and return precautions Disposition - Disposition Referrals: [facility] [Outside] [facility] [Outside] Bala Dickinson MD [Staff Provider] - Disposition: HOME/ ROUTINE Disposition Time: 09:30 Condition: STABLE Additional Instructions: follow up with specialist. return to er with worsening symptoms or concerns. Prescriptions: Famotidine [Pepcid] 20 mg PO DAILY #20 tab Instructions: Acute Abdominal Pain (ED), Hand Sprain (ED) Forms: [employer] (Iranian) - Clinical Impression Clinical Impression: Abdominal pain - Scribe Statement The provider has reviewed the documentation as recorded by the Lenoreibmaría Ahn Provider Attestation: All medical record entries made by the Lenoreibmaría were at my direction and personally dictated by me. I have reviewed the chart and agree that the record accurately reflects my personal performance of the history, physical exam, medical decision making, and the department course for this patient. I have also personally directed, reviewed, and agree with the discharge instructions and disposition.
[2017-09-08] MEDS ORDERED: Sodium Chloride 0.9% 1,000 ML ONE (19:26)
[2017-09-08] MEDS ORDERED: Pantoprazole 40 mg EC Tab PO STA (20:06)
[2017-09-08 20:09] LABS: EOS % 0.6 % (0.0-4.0); HEMOGLOBIN 13.5 g/dL (12.0-18.0); LYMPH # 1.6 K/uL (1.0-4.3); LYMPH % 41.2 % (20.0-40.0); MEAN CELL VOLUME 97.1 fL (80.0-94.0); MEAN CORPUSCULAR HEMOGLOBIN 34.2 pg (27.0-31.0); MEAN CORPUSCULAR HGB CONC 35.2 g/dL (33.0-37.0); MONO # 0.6 K/uL (0.0-0.8); MONO % 15.8 % (0.0-10.0); NEUT # 1.6 K/uL (1.8-7.0); NEUT % 41.4 % (50.0-75.0); NRBC % 0.2 % (0.0-2.0); RBC 3.94 Mil/uL (4.40-5.90); RED CELL DISTRIBUTION WIDTH 13.6 % (11.5-14.5)
[2017-09-08] MEDS ORDERED: Pantoprazole 40 mg EC Tab PO ONE (20:13)
[2017-09-08 20:21] LABS: SQUAMOUS EPITHIAL < 1 /hpf (0-5); URINE BACTERIA RARE (<OCC); URINE BILIRUBIN NEGATIVE (NEGATIVE); URINE BLOOD NEGATIVE (NEGATIVE); URINE CLARITY Clear (Clear); URINE COLOR Yellow (YELLOW); URINE GLUCOSE (UA) NORMAL (Normal); URINE LEUKOCYTE ESTERASE NEG Leu/uL (Negative); URINE NITRATE NEGATIVE (NEGATIVE); URINE PROTEIN NEGATIVE (NEGATIVE); URINE UROBILINOGEN NORMAL mg/dL (0.2-1.0)
[2017-09-08 20:26] LABS: ALB/GLOB RATIO 1.2 (1.0-2.1); ALBUMIN 3.9 g/dL (3.5-5.0); ALT/SGPT 167 U/L (21-72); AST/SGOT 153 U/L (17-59); BLOOD UREA NITROGEN 8 mg/dL (9-20); CALCIUM 8.5 mg/dl (8.6-10.4); GFR AFRICAN-AMERICAN > 60; GFR NON-AFRICAN AMERICAN > 60; LIPASE 107 U/L (23-300)
[2017-09-08 20:34] LABS: INR 1.1; PROTHROMBIN TIME 11.8 SECONDS (9.7-12.2)
[2017-09-08 21:06] VITALS: BP 120/81; PULSE 70; RESP 16; TEMP 98
[2017-09-08 21:54] VITALS: O2SAT 95
== END 2017-09-08 21:06 | disposition home or self-care (01) ==
LOC: C.ER 17:04
DX: R10.13 Epigastric pain (principal)
CPT/HCPCS: 80053; 81001; 83690; 85025; 85610; 85730; 96361; 96374; 99285; C9113; J7040

== ENCOUNTER 2017-09-09 10:48 | Emergency (ER) | payer MEDICAID ==
[2017-09-09 10:49] VITALS: BMI 28.2
[2017-09-09 11:00] VITALS: BP 124/77; PULSE 48; RESP 18; TEMP 97.9; O2SAT 98
[2017-09-09] MEDS ORDERED: Thiamine 100 mg/ml Inj IV ONE (11:22)
--- NOTE | 2017-09-09 12:10 | C.PDOC ---
History Of Present Illness 56 year old male presents to ED requesting detox from alcohol. Notes last drink was this morning. Otherwise, denies SI, HI, or any active physical complaints at this time. Time Seen by Provider: 09/09/17 11:04 Chief Complaint (Nursing): Substance Abuse History Per: Patient History/Exam Limitations: no limitations Onset/Duration Of Symptoms: Gradual Current Symptoms Are (Timing): Still Present Suicide/Self Injury Attempted (Context): None Modifying Factor(s): Alcohol Severity: None Pain Scale Rating Of: 0 Associated Symptoms: denies: Suicidal Thoughts, Suicidal Plan Involuntary Hold By: None Recent travel outside of the [place]: No Additional History Per: Patient Past Medical History Reviewed: Historical Data, Nursing Documentation, Vital Signs Vital Signs: Last Vital Signs Temp 97.9 F 09/09/17 10:57 Pulse 48 L 09/09/17 10:57 Resp 18 09/09/17 10:57 BP 124/77 09/09/17 10:57 Pulse Ox 98 09/11/17 17:03 - Medical History PMH: Anxiety, Arthritis, Back Problems, Bronchitis, COPD, Depression, Fractures (fx left leg), Gastrointestinal Ulcer, Gall Bladder Disease, HTN, Kidney Stones , Chronic Kidney Disease, Seizures (alcohol induced) Denies: Diabetes, Hepatitis, HIV, Sexually Transmitted Disease - [facility] Procedures ALCOHOL DETOXIFICATION (11/06/14) COMBINED ALCOHOL AND DRUG DETOXIFICATION (05/05/15) DETOXIFICATION SERVICES FOR SUBSTANCE ABUSE TREATMENT (08/18/17) GROUP PRIMARY CLASS TEACHER FOR SUBSTANCE ABUSE TREATMENT, PSYCHOEDUCATION (08/18/17) GROUP PRIMARY CLASS TEACHER FOR SUBSTANCE ABUSE, COGNITIVE BEHAVIORAL (08/18/17) GROUP PSYCHOTHERAPY (05/24/16) INDIV PSYCHOTHERAPY FOR SUBSTANCE ABUSE TREATMENT, SUPPORT (08/18/17) INDIV PSYCHOTHERAPY FOR SUBSTANCE ABUSE, COGNITIV BEHAVIORAL (08/18/17) INDIV PSYCHOTHERAPY FOR SUBSTANCE ABUSE, MOTIVATION ENHANCE (06/15/17) INDIV PSYCHOTHERAPY FOR SUBSTANCE ABUSE, PSYCHOEDUCATION (08/18/17) MEDICATION MANAGEMENT (03/17/17) MEDS MGMT FOR SUBSTANCE ABUSE TREATMENT, OTH REPL MED (06/15/17) PHARMACOTHERAPY FOR SUBSTANCE ABUSE, METHADONE MAINT (07/08/17) Family History: States: Unknown Family Hx - Social History Hx Tobacco Use: Yes Hx Alcohol Use: Yes Hx Substance Use: Yes - Immunization History Hx Tetanus Toxoid Vaccination: No Hx Influenza Vaccination: No (9 months ago) Hx Pneumococcal Vaccination: No Review Of Systems Except As Marked, All Systems Reviewed And Found Negative. Constitutional: Negative for: Fever, Chills Cardiovascular: Negative for: Chest Pain, Palpitations Respiratory: Negative for: Cough, Shortness of Breath Physical Exam - Physical Exam Appears: Non-toxic, No Acute Distress Skin: Normal Color, Warm, Dry Head: Atraumatic, Normacephalic Eye(s): bilateral: Normal Inspection Oral Mucosa: Moist Neck: Supple Cardiovascular: Rhythm Regular, No Murmur Respiratory: Normal Breath Sounds, No Rales, No Rhonchi, No Wheezing Gastrointestinal/Abdominal: Soft, No Tenderness Extremity: Normal ROM, No Deformity Neurological/Psych: Oriented x3, Normal Speech ED Course And Treatment O2 Sat by Pulse Oximetry: 98 (RA) Pulse Ox Interpretation: Normal Medical Decision Making Medical Decision Making: Pt left after discovering there were no detox beds available at this time. Pt was ambulating with steady gait, no signs of intoxication. Disposition - Disposition Disposition: HOME/ ROUTINE Disposition Time: 11:45 Condition: STABLE Forms: [facility] (Azeri) - Clinical Impression Clinical Impression: Alcohol dependence - Scribe Statement The provider has reviewed the documentation as recorded by the Scribe Devin Villagran All medical record entries made by the Scribe were at my direction and personally dictated by me. I have reviewed the chart and agree that the record accurately reflects my personal performance of the history, physical exam, medical decision making, and the department course for this patient. I have also personally directed, reviewed, and agree with the discharge instructions and disposition.
== END 2017-09-09 11:40 | disposition home or self-care (01) ==
LOC: C.ER 10:48
DX: F10.20 Alcohol dependence, uncomplicated (principal); Z87.891 Personal history of nicotine dependence; I12.9 Hypertensive chronic kidney disease with stage 1 through stage 4 chronic kidney disease, or unspecified chronic kidney disease; N18.9 Chronic kidney disease, unspecified; J44.9 Chronic obstructive pulmonary disease, unspecified

== ENCOUNTER 2017-09-09 17:54 | Emergency (ER) | payer MEDICAID ==
[2017-09-09 17:54] VITALS: BMI 28.2
[2017-09-09 18:28] VITALS: BP 123/67; PULSE 57; RESP 18; TEMP 98.3; O2SAT 97
--- NOTE | 2017-09-09 19:05 | C.PDOC ---
History Of Present Illness 56 year old male walked into ER intoxicated seeking detox. He was seen earlier today for the same reason, told there were no detox beds available. Patient has had many prior ER visits for ETOH abuse. Denies physical complaints at this time. Time Seen by Provider: 09/09/17 18:57 Chief Complaint (Nursing): Substance Abuse History Per: Patient History/Exam Limitations: no limitations Onset/Duration Of Symptoms: Hrs Current Symptoms Are (Timing): Still Present Suicide/Self Injury Attempted (Context): None Modifying Factor(s): Alcohol Associated Symptoms: denies: Depression, Suicidal Thoughts, Suicidal Plan Involuntary Hold By: None Recent travel outside of the [place]: No Past Medical History Reviewed: Historical Data, Nursing Documentation, Vital Signs Vital Signs: Last Vital Signs Temp 98.3 F 09/09/17 18:23 Pulse 57 L 09/09/17 18:23 Resp 18 09/09/17 18:23 BP 123/67 09/09/17 18:23 Pulse Ox 97 09/09/17 19:05 - Medical History PMH: Anxiety, Arthritis, Back Problems, Bronchitis, COPD, Depression, Fractures (fx left leg), Gastrointestinal Ulcer, Gall Bladder Disease, HTN, Kidney Stones , Chronic Kidney Disease, Seizures (alcohol induced) - [facility] Procedures ALCOHOL DETOXIFICATION (11/06/14) COMBINED ALCOHOL AND DRUG DETOXIFICATION (05/05/15) DETOXIFICATION SERVICES FOR SUBSTANCE ABUSE TREATMENT (08/18/17) GROUP BRICKMASON HELPER FOR SUBSTANCE ABUSE TREATMENT, PSYCHOEDUCATION (08/18/17) GROUP BRICKMASON HELPER FOR SUBSTANCE ABUSE, COGNITIVE BEHAVIORAL (08/18/17) GROUP PSYCHOTHERAPY (05/24/16) INDIV PSYCHOTHERAPY FOR SUBSTANCE ABUSE TREATMENT, SUPPORT (08/18/17) INDIV PSYCHOTHERAPY FOR SUBSTANCE ABUSE, COGNITIV BEHAVIORAL (08/18/17) INDIV PSYCHOTHERAPY FOR SUBSTANCE ABUSE, MOTIVATION ENHANCE (06/15/17) INDIV PSYCHOTHERAPY FOR SUBSTANCE ABUSE, PSYCHOEDUCATION (08/18/17) MEDICATION MANAGEMENT (03/17/17) MEDS MGMT FOR SUBSTANCE ABUSE TREATMENT, OTH REPL MED (06/15/17) PHARMACOTHERAPY FOR SUBSTANCE ABUSE, METHADONE MAINT (07/08/17) Family History: States: Unknown Family Hx - Social History Hx Tobacco Use: Yes Hx Alcohol Use: Yes Hx Substance Use: Yes - Immunization History Hx Tetanus Toxoid Vaccination: No Hx Influenza Vaccination: No (9 months ago) Hx Pneumococcal Vaccination: No Review Of Systems Constitutional: Negative for: Fever, Chills Gastrointestinal: Negative for: Nausea, Vomiting, Diarrhea Physical Exam - Physical Exam Appears: Non-toxic, No Acute Distress Skin: Normal Color, Warm, Dry Head: Atraumatic, Normacephalic Eye(s): bilateral: Normal Inspection Oral Mucosa: Moist Chest: Symmetrical, No Tenderness Cardiovascular: Rhythm Regular Respiratory: Normal Breath Sounds, No Rales, No Rhonchi, No Wheezing Gastrointestinal/Abdominal: Soft, No Tenderness Neurological/Psych: Oriented x3, Normal Speech, Other (No focal deficits) Gait: Steady ED Course And Treatment O2 Sat by Pulse Oximetry: 97 (Room air) Pulse Ox Interpretation: Normal Medical Decision Making Medical Decision Making: contnued alcohol intox, asking for detox no detox beds avail- d/w Crisis Evaluators- no SI/HI Argumentative and inappropriate with ED staff, escorted from ED by Security. Disposition Doctor Will See Patient In The: Office Counseled Patient/Family Regarding: Studies Performed, Diagnosis - Disposition Referrals: Alcoholics Anonymous [Outside] [facility] [Outside] [facility] [Outside] Disposition: HOME/ ROUTINE Disposition Time: 19:04 Condition: GOOD Additional Instructions: seek outpatient detox call back our Crisis Evaluators for availability of inpatient detox. Instructions: Abuse of Alcohol (ED) Forms: [facility] (Slovenian) - Clinical Impression Clinical Impression: Alcohol abuse - Scribe Statement The provider has reviewed the documentation as recorded by the Scribmaría Dumont All medical record entries made by the Scribe were at my direction and personally dictated by me. I have reviewed the chart and agree that the record accurately reflects my personal performance of the history, physical exam, medical decision making, and the department course for this patient. I have also personally directed, reviewed, and agree with the discharge instructions and disposition.
== END 2017-09-09 19:04 | disposition home or self-care (01) ==
LOC: C.ER 17:54
DX: F10.10 Alcohol abuse, uncomplicated (principal); I12.9 Hypertensive chronic kidney disease with stage 1 through stage 4 chronic kidney disease, or unspecified chronic kidney disease; N18.9 Chronic kidney disease, unspecified; J44.9 Chronic obstructive pulmonary disease, unspecified; Z87.891 Personal history of nicotine dependence

== ENCOUNTER 2017-09-09 20:43 | Emergency (ER) | payer MEDICAID ==
[2017-09-09 20:43] VITALS: BMI 28.2
--- NOTE | 2017-09-09 21:12 | C.PDOC ---
History Of Present Illness 56 year old male walked into the ER for his 3rd evaluation of the day. Patient was discharged 2 hours ago and is now requesting a place to spend the night. Patient is disruptive, loud, obnoxious, and threatening. Claims [place] the [place], no medical complaints at this time. Time Seen by Provider: 09/09/17 21:06 Chief Complaint (Nursing): Substance Abuse History Per: Patient History/Exam Limitations: no limitations Suicide/Self Injury Attempted (Context): None Associated Symptoms: denies: Depression, Suicidal Thoughts, Suicidal Plan Involuntary Hold By: None Recent travel outside of the [place]: No Past Medical History Reviewed: Historical Data, Nursing Documentation, Vital Signs - Medical History PMH: Anxiety, Arthritis, Back Problems, Bronchitis (PT DENIES), COPD (PT DENIES) , Depression, Fractures (fx left leg), Gastrointestinal Ulcer, Gall Bladder Disease, HTN, Kidney Stones, Chronic Kidney Disease, Seizures (alcohol induced) - [facility] Procedures ALCOHOL DETOXIFICATION (11/06/14) COMBINED ALCOHOL AND DRUG DETOXIFICATION (05/05/15) DETOXIFICATION SERVICES FOR SUBSTANCE ABUSE TREATMENT (08/18/17) GROUP AUTOMATIC WASHER MECHANIC FOR SUBSTANCE ABUSE TREATMENT, PSYCHOEDUCATION (08/18/17) GROUP AUTOMATIC WASHER MECHANIC FOR SUBSTANCE ABUSE, COGNITIVE BEHAVIORAL (08/18/17) GROUP PSYCHOTHERAPY (05/24/16) INDIV PSYCHOTHERAPY FOR SUBSTANCE ABUSE TREATMENT, SUPPORT (08/18/17) INDIV PSYCHOTHERAPY FOR SUBSTANCE ABUSE, COGNITIV BEHAVIORAL (08/18/17) INDIV PSYCHOTHERAPY FOR SUBSTANCE ABUSE, MOTIVATION ENHANCE (06/15/17) INDIV PSYCHOTHERAPY FOR SUBSTANCE ABUSE, PSYCHOEDUCATION (08/18/17) MEDICATION MANAGEMENT (03/17/17) MEDS MGMT FOR SUBSTANCE ABUSE TREATMENT, OTH REPL MED (06/15/17) PHARMACOTHERAPY FOR SUBSTANCE ABUSE, METHADONE MAINT (07/08/17) Family History: States: Unknown Family Hx - Social History Hx Tobacco Use: Yes Hx Alcohol Use: Yes Hx Substance Use: Yes - Immunization History Hx Tetanus Toxoid Vaccination: No Hx Influenza Vaccination: No Hx Pneumococcal Vaccination: No Review Of Systems Constitutional: Negative for: Fever, Chills Gastrointestinal: Negative for: Nausea, Vomiting, Diarrhea Physical Exam - Physical Exam Appears: Non-toxic, Other (No signs of injury) Skin: Normal Color, Warm, Dry Head: Atraumatic, Normacephalic Eye(s): bilateral: Normal Inspection Oral Mucosa: Moist Neck: Normal, Supple Chest: Symmetrical, No Tenderness Cardiovascular: Rhythm Regular Respiratory: Normal Breath Sounds, No Rales, No Rhonchi, No Wheezing Gastrointestinal/Abdominal: Soft, No Tenderness Neurological/Psych: Oriented x3, Normal Speech Medical Decision Making Medical Decision Making: returns to ED walking 2 hours after d/c again claiming he is in withdrawal though obviously intoxicated, argumentative and threatening to staff and this MD. AGAIN, in less than 2 hours escorted from ED with Security Disposition Doctor Will See Patient In The: Office Counseled Patient/Family Regarding: Studies Performed, Diagnosis - Disposition Referrals: Alcoholics Anonymous [Outside] [facility] [place] [Outside] [facility] [Outside] [facility] [Outside] Disposition: HOME/ ROUTINE Disposition Time: 21:14 Condition: GOOD Instructions: Abuse of Alcohol (ED) Forms: [facility] (South Korean) - Clinical Impression Clinical Impression: Alcohol abuse - Scribe Statement The provider has reviewed the documentation as recorded by the Scribmaría Dumont All medical record entries made by the Scribe were at my direction and personally dictated by me. I have reviewed the chart and agree that the record accurately reflects my personal performance of the history, physical exam, medical decision making, and the department course for this patient. I have also personally directed, reviewed, and agree with the discharge instructions and disposition.
== END 2017-09-09 21:30 | disposition home or self-care (01) ==
LOC: C.ER 20:43
DX: F10.10 Alcohol abuse, uncomplicated (principal); I12.9 Hypertensive chronic kidney disease with stage 1 through stage 4 chronic kidney disease, or unspecified chronic kidney disease; N18.9 Chronic kidney disease, unspecified; Z87.891 Personal history of nicotine dependence

== ENCOUNTER 2017-09-23 07:28 | Emergency (ER) | payer MEDICAID ==
[2017-09-23 07:29] VITALS: BMI 28.2
[2017-09-23 08:46] VITALS: BP 148/86; PULSE 75; RESP 18; TEMP 98.1; O2SAT 98
[2017-09-23] MEDS ORDERED: Oxycodone/Acetaminophen 5/325 mg Tab PO STA (08:52)
--- NOTE | 2017-09-23 08:54 | C.PDOC ---
History Of Present Illness 56 yo male w/PMHx of chronic lower back pain, lumbar radiculopathy. come in for evaluation of lower back pain exacerbation for past few days. Pt admits, pain is localized with intermittent radiation to B/L thighs. Pt admits, similar sx in past and c/w chronic lower back pain. Otherwise, pt denies known trauma or injury, fever, chills, CP, SOB, dyspnea, diaphoresis, palpitation, abd. pain, N/ V/D, UTI sx, saddle anesthesia, weakness, sensory or vascular deficits to B/L LEs. Ambulate to RED for evaluation, not in any apparent distress pt request Percocet for pain " usually take for pain, ran out of it". Time Seen by Provider: 09/23/17 08:48 Chief Complaint (Nursing): Back Pain History Per: Patient Onset/Duration Of Symptoms: Intermittent Episodes Past Medical History Reviewed: Historical Data, Nursing Documentation, Vital Signs Vital Signs: Last Vital Signs Temp 98.1 F 09/23/17 08:46 Pulse 75 09/23/17 08:46 Resp 18 09/23/17 08:46 BP 148/86 09/23/17 08:46 Pulse Ox 98 09/23/17 08:54 - Medical History PMH: Anxiety, Arthritis, Back Problems, Bronchitis (PT DENIES), COPD (PT DENIES) , Depression, Fractures (fx left leg), Gastrointestinal Ulcer, Gall Bladder Disease, HTN, Kidney Stones, Chronic Kidney Disease, Seizures (alcohol induced) Denies: Diabetes, Hepatitis, HIV, Sexually Transmitted Disease - [facility] Procedures ALCOHOL DETOXIFICATION (11/06/14) COMBINED ALCOHOL AND DRUG DETOXIFICATION (05/05/15) DETOXIFICATION SERVICES FOR SUBSTANCE ABUSE TREATMENT (08/18/17) GROUP RECEPTIONIST CLERK FOR SUBSTANCE ABUSE TREATMENT, PSYCHOEDUCATION (08/18/17) GROUP RECEPTIONIST CLERK FOR SUBSTANCE ABUSE, COGNITIVE BEHAVIORAL (08/18/17) GROUP PSYCHOTHERAPY (05/24/16) INDIV PSYCHOTHERAPY FOR SUBSTANCE ABUSE TREATMENT, SUPPORT (08/18/17) INDIV PSYCHOTHERAPY FOR SUBSTANCE ABUSE, COGNITIV BEHAVIORAL (08/18/17) INDIV PSYCHOTHERAPY FOR SUBSTANCE ABUSE, MOTIVATION ENHANCE (06/15/17) INDIV PSYCHOTHERAPY FOR SUBSTANCE ABUSE, PSYCHOEDUCATION (08/18/17) MEDICATION MANAGEMENT (03/17/17) MEDS MGMT FOR SUBSTANCE ABUSE TREATMENT, OTH REPL MED (06/15/17) PHARMACOTHERAPY FOR SUBSTANCE ABUSE, METHADONE MAINT (07/08/17) Family History: States: Unknown Family Hx - Social History Hx Tobacco Use: Yes Hx Alcohol Use: Yes Hx Substance Use: Yes - Immunization History Hx Tetanus Toxoid Vaccination: No Hx Influenza Vaccination: No Hx Pneumococcal Vaccination: No Review Of Systems Except As Marked, All Systems Reviewed And Found Negative. Constitutional: Negative for: Fever, Chills ENT: Negative for: Throat Pain Cardiovascular: Negative for: Chest Pain, Palpitations Respiratory: Negative for: Cough, Shortness of Breath Gastrointestinal: Negative for: Nausea, Vomiting, Abdominal Pain, Diarrhea Genitourinary: Negative for: Dysuria Musculoskeletal: Positive for: Back Pain Skin: Negative for: Rash Neurological: Negative for: Weakness, Numbness, Headache, Dizziness Physical Exam - Physical Exam Appears: Well, Non-toxic, No Acute Distress Skin: Normal Color, Warm, Dry, No Rash Head: Normacephalic Eye(s): bilateral: PERRL Nose: No Discharge Oral Mucosa: Moist, No Drooling Throat: No Erythema Neck: Trachea Midline, Supple Cardiovascular: Rhythm Regular Respiratory: No Decreased Breath Sounds, No Accessory Muscle Use, No Stridor, No Wheezing Gastrointestinal/Abdominal: Soft, No Tenderness, No Distention, No Guarding Back: No CVA Tenderness, Paraspinal Tenderness (diffuse lumbar, no skin changes , no palpable deformity.) Extremity: Normal ROM, No Pedal Edema, No Deformity, No Swelling Neurological/Psych: Oriented x3, Normal Speech, Normal Motor, Normal Sensation, Normal Reflexes ED Course And Treatment O2 Sat by Pulse Oximetry: 98 Pulse Ox Interpretation: Normal Progress Note: On re-eval, pt is afebrile, hemodynamicaly stable. Non-toxic. Ambulatory in ED with stable gait. PulsEOx 100% RA. ENT: no acute findings. Abd: benign, (-) guarding, (-) rebound, (-) localized tenderness. back: (-) CVA tenderness. neurologicaly intact. Pt has clinical findings c/w chronic lumbar radiculopathy. Pt advised. ref. to f/u with PMD, PM in 2-3 days for re -eavl. return if any new changes Disposition Counseled Patient/Family Regarding: Diagnosis, Need For Followup - Disposition Referrals: Grayson Johnson MD [Medical Doctor] - Disposition: HOME/ ROUTINE Disposition Time: 08:53 Condition: STABLE Additional Instructions: Follow up with PMD, pain management in2 -3 days for re-evaluation and pain control. return to ED if any worsening or new changes. Instructions: Chronic Back Pain (ED) Forms: [email or web address] (Cymraes) - Clinical Impression Clinical Impression: Low back pain
[2017-09-23] MEDS ORDERED: Oxycodone/Acetaminophen 5/325 mg Tab ONE (09:00)
== END 2017-09-23 09:05 | disposition home or self-care (01) ==
LOC: C.ER 07:28
DX: M54.5 Low back pain (principal)

== ENCOUNTER 2017-10-03 21:22 | Emergency (ER) | payer MEDICAID ==
[2017-10-03 21:24] VITALS: BMI 29.0
[2017-10-03 22:00] VITALS: TEMP 98; O2SAT 98
--- NOTE | 2017-10-04 03:34 | C.PDOC ---
History Of Present Illness 56 y/o male is brought to the ED by ambulance for evaluation of alcohol intoxication for an unknown duration. Patient admits to drinking unspecified quantity of Vodka earlier this evening. Patient denies any acute complaints at this time. Unable to obtain past medical/surgical history; additional information limited secondary to patient's intoxication status. Chief Complaint (Nursing): Substance Abuse History Per: Patient History/Exam Limitations: intoxication Onset/Duration Of Symptoms: Unknown Current Symptoms Are (Timing): Still Present Suicide/Self Injury Attempted (Context): None Modifying Factor(s): Alcohol Associated Symptoms: denies: Suicidal Thoughts, Suicidal Plan Involuntary Hold By: None Recent travel outside of the [place]: No Additional History Per: Patient Past Medical History Reviewed: Historical Data, Nursing Documentation, Vital Signs Vital Signs: Last Vital Signs Temp 98 F 10/04/17 05:16 Pulse 86 10/04/17 05:16 Resp 18 10/04/17 05:16 BP 145/86 10/04/17 05:16 Pulse Ox 98 10/04/17 05:16 - Medical History PMH: Anxiety, Arthritis, Back Problems, Bronchitis (PT DENIES), COPD (PT DENIES) , Depression, Fractures (fx left leg), Gastrointestinal Ulcer, Gall Bladder Disease, HTN, Kidney Stones, Chronic Kidney Disease, Seizures (alcohol induced) Denies: Diabetes, Hepatitis, HIV, Sexually Transmitted Disease Surgical History: No Surg Hx - [facility] Procedures ALCOHOL DETOXIFICATION (11/06/14) COMBINED ALCOHOL AND DRUG DETOXIFICATION (05/05/15) DETOXIFICATION SERVICES FOR SUBSTANCE ABUSE TREATMENT (08/18/17) GROUP BENCH MOLDER FOR SUBSTANCE ABUSE TREATMENT, PSYCHOEDUCATION (08/18/17) GROUP BENCH MOLDER FOR SUBSTANCE ABUSE, COGNITIVE BEHAVIORAL (08/18/17) GROUP PSYCHOTHERAPY (05/24/16) INDIV PSYCHOTHERAPY FOR SUBSTANCE ABUSE TREATMENT, SUPPORT (08/18/17) INDIV PSYCHOTHERAPY FOR SUBSTANCE ABUSE, COGNITIV BEHAVIORAL (08/18/17) INDIV PSYCHOTHERAPY FOR SUBSTANCE ABUSE, MOTIVATION ENHANCE (06/15/17) INDIV PSYCHOTHERAPY FOR SUBSTANCE ABUSE, PSYCHOEDUCATION (08/18/17) MEDICATION MANAGEMENT (03/17/17) MEDS MGMT FOR SUBSTANCE ABUSE TREATMENT, OTH REPL MED (06/15/17) PHARMACOTHERAPY FOR SUBSTANCE ABUSE, METHADONE MAINT (07/08/17) Family History: States: Unknown Family Hx - Social History Hx Tobacco Use: Yes Hx Alcohol Use: Yes Hx Substance Use: Yes - Immunization History Hx Tetanus Toxoid Vaccination: No Hx Influenza Vaccination: No Hx Pneumococcal Vaccination: No Review Of Systems Review Of Systems: ROS cannot be obtained secondary to pt's inabilty to answer questions. Physical Exam - Physical Exam Appears: Non-toxic, No Acute Distress, Other (somnolent. uncooperative during extensive neurological exam. pushes my hand away when I attempt to examine ) Skin: Normal Color, Warm, Dry Head: Atraumatic, Normacephalic Eye(s): bilateral: PERRL, EOMI, Other (bloodshot ) Oral Mucosa: Moist, Other (alcohol on breath ) Neck: Supple Chest: Symmetrical, No Deformity, No Tenderness Cardiovascular: Rhythm Regular, No Murmur Respiratory: Normal Breath Sounds, No Rales, No Rhonchi, No Wheezing Gastrointestinal/Abdominal: Soft, No Tenderness, No Guarding, No Rebound Extremity: Normal ROM, Capillary Refill (less than 2 seconds ) Neurological/Psych: No Normal Speech (slurred ) ED Course And Treatment O2 Sat by Pulse Oximetry: 98 Medical Decision Making Medical Decision Making: Impression: alcohol intoxication Progress: Will observe in the ED until return of sobriety. Disposition - Disposition Referrals: Alcoholics Anonymous [Outside] Disposition: HOME/ ROUTINE Disposition Time: 06:17 Condition: GOOD Instructions: Alcohol Use - When Is Drinking a Problem? Forms: [facility] (Uzbek) Print Language: UKRAINIAN - Clinical Impression Clinical Impression: Alcohol intoxication - Scribe Statement The provider has reviewed the documentation as recorded by the Scribe (Destiny Villagran) Provider Attestation: All medical record entries made by the Scribe were at my direction and personally dictated by me. I have reviewed the chart and agree that the record accurately reflects my personal performance of the history, physical exam, medical decision making, and the department course for this patient. I have also personally directed, reviewed, and agree with the discharge instructions and disposition.
[2017-10-04 05:16] VITALS: BP 145/86; PULSE 86; RESP 18
== END 2017-10-04 05:16 | disposition home or self-care (01) ==
LOC: C.ER 21:22 → SUPCPDRO 21:22 → C.ER 10-04 05:16
DX: F10.129 Alcohol abuse with intoxication, unspecified (principal); Y90.9 Presence of alcohol in blood, level not specified

== ENCOUNTER 2017-10-13 08:21 | Emergency (ER) | payer MEDICAID ==
[2017-10-13 08:21] VITALS: BMI 29.0
[2017-10-13 08:30] VITALS: RESP 18; TEMP 97.5; O2SAT 95
--- NOTE | 2017-10-13 08:32 | C.PDOC ---
History Of Present Illness 56 Y/O MALE WITH PMHx HEP C, CHRONIC LOWER BACK PAIN, LUMBAR RADICULOPATHY, DRUG AND ETOH ABUSE PRESENTS TO ED WITH CONCERNS FOR ACCIDENTAL FENTANYL EXPOSURE ONSET 1 [employer]. PATIENT STATES HE USED 2 BAGS INTRANASAL OF HEROIN AND 1/2 PINT VODKA "BECAUSE I AM TRYING TO MANAGE MY WITHDRAWAL". PATIENT STATES HE PREVIOUSLY USED FENTANYL ONCE AND HAD SIMILAR REACTION NOW. PATIENT STATES HE GETS PERCOCET PRESCRIPTION FOR BACK PAIN BUT MEDICATIONS WERE STOLEN FROM LONG TERM. LAST DOSE 2-3 DAYS AGO. PENDING DETOX @ [facility]. AT ED PATIENT COMPLAINTS OF VOMITING AND ANXIETY AND HEADACHE, DENIES HEAD TRAUMA OR ANY OTHER COMPLAINTS AT THIS TIME. w/PMHx of HEP C, chronic lower back pain, lumbar radiculopathy, drug and alcohol abuse EXAM ACTIVE VOMITING ON ER ARRIVAL, NOW RESOLVED; MOD DIST HEENT ATRAUM SUPPLE NO MENINGISMUS ABD SOFT NT ND NO R/G NEURO NO FOCAL DEF PSYCH MILD ACUTE INTOX, CALM COOPERATIVE VERBAL AND APPROPRIATE REMAINDER NEG OLD RECS: GIVEN THIAMINE/FOLATE ON 09/11/17 @ [facility] Time Seen by Provider: 10/13/17 08:29 Chief Complaint (Nursing): Substance Abuse History Per: Patient History/Exam Limitations: no limitations Onset/Duration Of Symptoms: Hrs Current Symptoms Are (Timing): Still Present Associated Symptoms: Vomiting Past Medical History Reviewed: Historical Data, Nursing Documentation, Vital Signs Vital Signs: Last Vital Signs Temp 97.5 F L 10/13/17 08:27 Pulse 96 H 10/13/17 10:19 Resp 18 10/13/17 10:19 BP 139/76 10/13/17 10:19 Pulse Ox 95 10/13/17 10:19 - Medical History PMH: Anxiety, Arthritis, Back Problems, Bronchitis (PT DENIES), COPD (PT DENIES) , Depression, Fractures (fx left leg), Gastrointestinal Ulcer, Gall Bladder Disease, HTN, Kidney Stones, Chronic Kidney Disease, Seizures (alcohol induced) Surgical History: No Surg Hx - [facility] Procedures ALCOHOL DETOXIFICATION (11/06/14) COMBINED ALCOHOL AND DRUG DETOXIFICATION (05/05/15) DETOXIFICATION SERVICES FOR SUBSTANCE ABUSE TREATMENT (08/18/17) GROUP SPRAY MACHINE LOADER FOR SUBSTANCE ABUSE TREATMENT, PSYCHOEDUCATION (08/18/17) GROUP SPRAY MACHINE LOADER FOR SUBSTANCE ABUSE, COGNITIVE BEHAVIORAL (08/18/17) GROUP PSYCHOTHERAPY (05/24/16) INDIV PSYCHOTHERAPY FOR SUBSTANCE ABUSE TREATMENT, SUPPORT (08/18/17) INDIV PSYCHOTHERAPY FOR SUBSTANCE ABUSE, COGNITIV BEHAVIORAL (08/18/17) INDIV PSYCHOTHERAPY FOR SUBSTANCE ABUSE, MOTIVATION ENHANCE (06/15/17) INDIV PSYCHOTHERAPY FOR SUBSTANCE ABUSE, PSYCHOEDUCATION (08/18/17) MEDICATION MANAGEMENT (03/17/17) MEDS MGMT FOR SUBSTANCE ABUSE TREATMENT, OTH REPL MED (06/15/17) PHARMACOTHERAPY FOR SUBSTANCE ABUSE, METHADONE MAINT (07/08/17) Family History: States: No Known Family Hx - Social History Hx Tobacco Use: Yes Hx Alcohol Use: Yes Hx Substance Use: Yes - Immunization History Hx Tetanus Toxoid Vaccination: No Hx Influenza Vaccination: No Hx Pneumococcal Vaccination: No Review Of Systems Constitutional: Negative for: Fever, Chills Cardiovascular: Negative for: Chest Pain Gastrointestinal: Positive for: Nausea, Vomiting. Negative for: Diarrhea Skin: Negative for: Rash Neurological: Positive for: Headache Psych: Positive for: Anxiety. Negative for: Suicidal ideation Physical Exam - Physical Exam Appears: Non-toxic, Other (Actively vomiting on ED arrival, now resolved. In moderate distress) Skin: Warm, Dry, No Rash Head: Atraumatic, Normacephalic Eye(s): bilateral: Normal Inspection, PERRL Oral Mucosa: Moist Neck: Normal ROM, Supple Cardiovascular: Rhythm Regular, Other (Bradycardic) Respiratory: Normal Breath Sounds, No Rales, No Rhonchi, No Wheezing Gastrointestinal/Abdominal: Soft, No Tenderness, No Distention, No Guarding, No Rebound Extremity: Normal ROM, Capillary Refill (<2 seconds) Neurological/Psych: Oriented x3, Normal Speech, Normal Cognition, Other (Mildly acute intoxicated, Calm, Cooperative) Gait: Steady ED Course And Treatment - Laboratory Results Result Diagrams: 10/13/17 09:36 10/13/17 09:36 ECG: Interpreted By Me, Viewed By Me ECG Rhythm: Sinus Bradycardia Rate From EC (BPM) O2 Sat by Pulse Oximetry: 95 (RA) Progress - Re-Evaluation Re-evaluation Note: 10/13/17 10:21 NO RECUR VOMITING SINCE INITIAL EVAL. TOLERATING PO WO DIFF. IMPROVED COMPARED TO PRIOR EXAM. PT REQUESTING DC HOME. - Data Reviewed Data Reviewed: Lab, EKG, Old records Disposition Counseled Patient/Family Regarding: Studies Performed, Diagnosis, Need For Followup - Disposition Referrals: YOUR,PMD [Other] Disposition: HOME/ ROUTINE Disposition Time: 10:21 Condition: IMPROVED Instructions: Side Effects From Medicines, Polysubstance Abuse Forms: [facility] (Cuban) - Clinical Impression Clinical Impression: Substance abuse, Drug reaction, Vomiting - Scribe Statement The provider has reviewed the documentation as recorded by the Lenoreibmaría Coulter All medical record entries made by the Lenoreibmaría were at my direction and personally dictated by me. I have reviewed the chart and agree that the record accurately reflects my personal performance of the history, physical exam, medical decision making, and the department course for this patient. I have also personally directed, reviewed, and agree with the discharge instructions and disposition.
[2017-10-13] MEDS ORDERED: Sodium Chloride 0.9% 1,000 ML IV ONE (09:03)
[2017-10-13] MEDS ORDERED: Sodium Chloride 0.9% 250 ML IV ONE (09:12)
[2017-10-13 09:41] LABS: BASO % 0.6 % (0.0-2.0); EOS # 0.2 K/uL (0.0-0.7); EOS % 3.7 % (0.0-4.0); HEMOGLOBIN 13.5 g/dL (12.0-18.0); LYMPH # 1.7 K/uL (1.0-4.3); LYMPH % 27.8 % (20.0-40.0); MEAN CELL VOLUME 97.9 fL (80.0-94.0); MEAN CORPUSCULAR HEMOGLOBIN 34.2 pg (27.0-31.0); MEAN PLATELET VOLUME 7.6 fL (7.2-11.7); MONO # 0.6 K/uL (0.0-0.8); MONO % 10.1 % (0.0-10.0); NEUT # 3.6 K/uL (1.8-7.0); NEUT % 57.8 % (50.0-75.0); RBC 3.95 Mil/uL (4.40-5.90); RED CELL DISTRIBUTION WIDTH 12.9 % (11.5-14.5)
[2017-10-13 09:42] LABS: WHITE BLOOD COUNT 6.2 K/uL (4.8-10.8)
[2017-10-13 09:55] LABS: ALB/GLOB RATIO 1.3 (1.0-2.1); ALT/SGPT 113 U/L (21-72); AST/SGOT 77 U/L (17-59); BLOOD UREA NITROGEN 12 mg/dL (9-20); CALCIUM 8.6 mg/dl (8.6-10.4); GFR AFRICAN-AMERICAN > 60; GFR NON-AFRICAN AMERICAN > 60; LIPASE 107 U/L (23-300)
[2017-10-13 10:20] VITALS: BP 139/76; PULSE 96
--- NOTE | 2017-10-16 09:38 | CARD ---
APPROVED REPORT EKG Measurement Heart [id number] <Conclusion> Sinus bradycardia Otherwise normal ECG
== END 2017-10-13 10:28 | disposition home or self-care (01) ==
LOC: C.ER 08:21
DX: R11.10 Vomiting, unspecified (principal); T40.4X5A Adverse effect of other synthetic narcotics, initial encounter; F19.10 Other psychoactive substance abuse, uncomplicated; Y92.89 Other specified places as the place of occurrence of the external cause; I12.9 Hypertensive chronic kidney disease with stage 1 through stage 4 chronic kidney disease, or unspecified chronic kidney disease; N18.9 Chronic kidney disease, unspecified; F17.210 Nicotine dependence, cigarettes, uncomplicated
CPT/HCPCS: 80053; 82948; 83690; 85025; 93005; 96361; 96374; 99283; J2405; J7040

== ENCOUNTER 2017-10-15 19:59 | Inpatient (IN) | payer MEDICAID ==
[2017-10-15 19:59] VITALS: BMI 29.0
--- NOTE | 2017-10-15 20:41 | C.PDOC ---
History Of Present Illness 56 yr old male presents to the ER requesting detox from alcohol and opiods. Patient states he has been drinking today. Previous records show, patient has been seen at [facility] for similar complains multiple time and was seen at [place] yesterday and had a negative work up. Patient denies SI, HI, fever, nausea, vomiting or headache. Time Seen by Provider: 10/15/17 20:40 Chief Complaint (Nursing): Substance Abuse History Per: Patient History/Exam Limitations: no limitations Onset/Duration Of Symptoms: Persistent Suicide/Self Injury Attempted (Context): None Modifying Factor(s): Alcohol Associated Symptoms: Depression Involuntary Hold By: None Recent travel outside of the [place]: No Additional History Per: Patient Past Medical History Reviewed: Historical Data, Nursing Documentation, Vital Signs Vital Signs: Last Vital Signs Temp 98.3 F 10/15/17 20:17 Pulse 78 10/15/17 20:17 Resp 20 10/15/17 20:17 BP 146/95 H 10/15/17 20:17 Pulse Ox 98 10/15/17 20:58 - Medical History PMH: Anxiety, Arthritis, Back Problems, Bronchitis (PT DENIES), COPD (PT DENIES) , Depression, Fractures (fx left leg), Gastrointestinal Ulcer, Gall Bladder Disease, HTN, Kidney Stones, Chronic Kidney Disease, Seizures (alcohol induced) - [facility] Procedures ALCOHOL DETOXIFICATION (11/06/14) COMBINED ALCOHOL AND DRUG DETOXIFICATION (05/05/15) DETOXIFICATION SERVICES FOR SUBSTANCE ABUSE TREATMENT (08/18/17) GROUP FARMER CASH GRAIN FOR SUBSTANCE ABUSE TREATMENT, PSYCHOEDUCATION (08/18/17) GROUP FARMER CASH GRAIN FOR SUBSTANCE ABUSE, COGNITIVE BEHAVIORAL (08/18/17) GROUP PSYCHOTHERAPY (05/24/16) INDIV PSYCHOTHERAPY FOR SUBSTANCE ABUSE TREATMENT, SUPPORT (08/18/17) INDIV PSYCHOTHERAPY FOR SUBSTANCE ABUSE, COGNITIV BEHAVIORAL (08/18/17) INDIV PSYCHOTHERAPY FOR SUBSTANCE ABUSE, MOTIVATION ENHANCE (06/15/17) INDIV PSYCHOTHERAPY FOR SUBSTANCE ABUSE, PSYCHOEDUCATION (08/18/17) MEDICATION MANAGEMENT (03/17/17) MEDS MGMT FOR SUBSTANCE ABUSE TREATMENT, OTH REPL MED (06/15/17) PHARMACOTHERAPY FOR SUBSTANCE ABUSE, METHADONE MAINT (07/08/17) Family History: States: No Known Family Hx - Social History Hx Tobacco Use: Yes Hx Alcohol Use: Yes Hx Substance Use: Yes - Immunization History Hx Tetanus Toxoid Vaccination: No Hx Influenza Vaccination: No Hx Pneumococcal Vaccination: No Review Of Systems Except As Marked, All Systems Reviewed And Found Negative. Constitutional: Negative for: Fever Cardiovascular: Negative for: Chest Pain Respiratory: Negative for: Shortness of Breath Gastrointestinal: Negative for: Nausea, Vomiting Genitourinary: Negative for: Dysuria Musculoskeletal: Negative for: Back Pain Skin: Negative for: Rash Neurological: Positive for: Headache. Negative for: Weakness Psych: Negative for: Suicidal ideation Physical Exam - Physical Exam Appears: Non-toxic, No Acute Distress Skin: Warm, Dry Head: Normacephalic Eye(s): bilateral: Normal Inspection Oral Mucosa: Moist Lips: No Swelling Neck: Supple Cardiovascular: Rhythm Regular Respiratory: No Rales, No Rhonchi Gastrointestinal/Abdominal: Soft, No Tenderness Extremity: No Swelling Extremity: Bilateral: Atraumatic Neurological/Psych: Oriented x3, Normal Speech Gait: Steady ED Course And Treatment - Laboratory Results Result Diagrams: 10/15/17 20:53 10/15/17 20:53 O2 Sat by Pulse Oximetry: 98 (RA) Pulse Ox Interpretation: Normal Medical Decision Making Medical Decision Making: PLAN: * Alcohol Serum * Drug Screen * Labs * Urinalysis Disposition Discussed With : Ricarda Ahmadi Comment: accepted the pt on his service and took over the care at 12:29AM Doctor Will See Patient In The: Hospital Counseled Patient/Family Regarding: Studies Performed, Diagnosis - Disposition Referrals: Non [facility] Provider, [Primary Care Provider] - Disposition: HOSPITALIZED Disposition Time: 20:40 Condition: FAIR Forms: [facility] (Frisian) - POA Present On Arrival: None - Clinical Impression Clinical Impression: Opiate abuse, continuous, Alcohol abuse - Scribe Statement The provider has reviewed the documentation as recorded by the Lenoreibe Ml Ahn Provider Attestation: All medical record entries made by the Lenoreibmaría were at my direction and personally dictated by me. I have reviewed the chart and agree that the record accurately reflects my personal performance of the history, physical exam, medical decision making, and the department course for this patient. I have also personally directed, reviewed, and agree with the discharge instructions and disposition. Decision To Admit - Pt Status Changed To: Hospital Disposition Of: Inpatient - Admit Certification Admit to Inpatient:: After my assessment, the patient will require hospitalization for at least two midnights. This is because of the severity of symptoms shown, intensity of services needed, and/or the medical risk in this patient being treated as an outpatient. - InPatient: Physician Admission Certification: I certify that this patient requires 2 or more midnights of care for the following reason:: After my assessment, the patient will require hospitalization for at least two midnights. This is because of the severity of symptoms shown, intensity of services needed, and/or the medical risk in this patient being treated as an outpatient. - . Bed Request Type: Detox Admitting Physician: Ricarda Ahmadi Patient Diagnosis: Opiate abuse, continuous, Alcohol abuse
[2017-10-15 20:58] LABS: BASO % 0.4 % (0.0-2.0); EOS # 0.2 K/uL (0.0-0.7); EOS % 3.1 % (0.0-4.0); LYMPH # 2.9 K/uL (1.0-4.3); LYMPH % 42.9 % (20.0-40.0); MEAN CORPUSCULAR HEMOGLOBIN 33.8 pg (27.0-31.0); MEAN CORPUSCULAR HGB CONC 34.5 g/dL (33.0-37.0); MEAN PLATELET VOLUME 7.6 fL (7.2-11.7); MONO # 0.7 K/uL (0.0-0.8); MONO % 10.3 % (0.0-10.0); NEUT # 2.9 K/uL (1.8-7.0); NEUT % 43.3 % (50.0-75.0); NRBC % 0.2 % (0.0-2.0); RBC 4.14 Mil/uL (4.40-5.90); RED CELL DISTRIBUTION WIDTH 13.1 % (11.5-14.5); WHITE BLOOD COUNT 6.7 K/uL (4.8-10.8)
[2017-10-15 21:10] LABS: ALB/GLOB RATIO 1.2 (1.0-2.1); ALBUMIN 4.1 g/dL (3.5-5.0); ALT/SGPT 113 U/L (21-72); AST/SGOT 80 U/L (17-59); BLOOD UREA NITROGEN 19 mg/dL (9-20); CALCIUM 9.1 mg/dl (8.6-10.4); GFR AFRICAN-AMERICAN > 60; GFR NON-AFRICAN AMERICAN > 60
[2017-10-15 22:35] LABS: SQUAMOUS EPITHIAL 1 /hpf (0-5); URINE BACTERIA RARE (<OCC); URINE BILIRUBIN NEGATIVE (NEGATIVE); URINE BLOOD NEGATIVE (NEGATIVE); URINE CALCIUM OXALATE CRYSTALS OCC /hpf (<OCC); URINE CLARITY Hazy (Clear); URINE COLOR Yellow (YELLOW); URINE GLUCOSE (UA) NORMAL (Normal); URINE HYALINE CAST 0-2 /lpf (0-2); URINE LEUKOCYTE ESTERASE TRACE Leu/uL (Negative); URINE PROTEIN NEGATIVE (NEGATIVE)
[2017-10-15 22:46] LABS: BARBITURATES, UR NEGATIVE (NEGATIVE); BENZODIAZEPINES, UR NEGATIVE (NEGATIVE); PHENCYCLIDINE, UR NEGATIVE (NEGATIVE)
[2017-10-15 22:47] LABS: OPIATES, UR POSITIVE (NEGATIVE)
--- NOTE | 2017-10-16 02:33 | PCM.BM ---
<Berna Pastranan - Last Filed: 10/16/17 02:32> Treatment Plan Problems - Problems identified on initial assessmt Substance Abuse Date Initiated: 10/16/17 Time Initiated: 02:32 Assessment reference: NA Status: Active Treatment assets and liabiliti Patient Assests: cooperative, self-reliant, ADL independent, negotiates basic needs Patient Liabilities: live alone, financial problems, poor support system, substance abuse - Milieu Protocol Maintain good personal hygiene: daily Encourage regular showers, daily Remind patient to perform daily oral care, daily Assist patient to perform ADL's Conduct patient checks and document Observation sheet: Q15 minutes Maintain personal safety: every shift Educate patient to report safety concerns to staff, every shift Monitor environment for contraband/sharps Medication safety: Monitor for expected outcome, potential side effects: every shift, Assess barriers to learning: every shift, Assess readiness for medication education: every shift <Clarita Elizondo - Last Filed: 10/16/17 12:41> - Diagnosis (1) Alcohol dependence Status: Acute Interventions: 10/16/17 12:41 * Assess 7x/week regarding severity of withdrawal * Educate regarding risks, benefits, side effects and alternatives of medications * Use Motivational Interviewing for abstinence * Use CBT for relapse prevention * Medication management for withdrawal symptoms * Encourage medication assisted treatment * (2) Opiate dependence Status: Acute Interventions: 10/16/17 12:41 * Assess 7x/week regarding severity of withdrawal * Educate regarding risks, benefits, side effects and alternatives of medications * Use Motivational Interviewing for abstinence * Use CBT for relapse prevention * Medication management for withdrawal symptoms * Encourage medication assisted treatment *
[2017-10-16] MEDS ORDERED: Pneumococcal 23-Valent Vaccine IM ONE (04:32)
--- NOTE | 2017-10-16 12:35 | PCM.PSYCH ---
Initial Psychiatric Evaluation - Initial Psychiatric Evaluation Type of Admission: Voluntary Legal Status: Capacity Chief Complaint (in patient's own words): "I relapsed" History of Present Illness and Precipitating Events: The pt is seen, chart reviewed and case discussed He is well-known from numerous admissions and ER visits. He was d/c'ed from our psych clinic this year august and relapsed quickly, he says. He went to one session at [facility] but couldn't wait to see the dr for suboxone. Pt is a 56 year old single, homeless but soon to be domiciled male self referred and admited to detox due to worsening withdrawal from alcohol and heroin. Pt is a poor historian and beligerent. Pt is not compliant with the treatment. He has multiple psychiatric and detox admissions in the past. Pt states he has been depressed for "a while" and has been suicidal in the past but denies now. Pt reports poor sleep but normal appetite. Feels somewhat depressed. 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 Pt reported that he drinks 2 pints of vodka daily, started at the age of 8, he uses cocaine 1/2 gm /month, started at the age of 28, and heroin intranasally, started at the age of 28, 5 bags per day. PPHx: Pt has several psychiatric and detox admission at [facility]. Pt reports a [facility] [place] in the past. Medical hx: Back injury, overweight Family psych hx: unknown Current Medications: Active Medications Generic Name Dose Route Start Last Admin Trade Name Freq PRN Reason Stop Dose Admin Chlordiazepoxide 25 mg 10/16/17 10:08 Librium PO Q4H PRN Alcohol Withdrawal Chlordiazepoxide 25 mg 10/16/17 12:00 10/16/17 11:35 Librium PO 10/21/17 11:59 25 mg Q6H BEVERLEY Administration Taper Past Psychiatric History - Past Psychiatric History Previous Treatment History: Inpatient Pertinent Medical Hx (Current Medical&Sleep Prob, Allergies): Allergies Allergy/AdvReac Type Severity Reaction Status Date / Time amitriptyline HCl Allergy SWELLING Verified 10/15/17 20:17 [From Elavil] naproxen Allergy SWELLING Verified 10/15/17 20:17 pregabalin [From Lyrica] Allergy SWELLING Verified 10/15/17 20:17 No Known Home Med 10/13/17 Review of Systems - Psychiatric Psychiatric: Abnormal Sleep Pattern, Anhedonia, Anxiety, Depression, Difficulty Concentrating. absent: Auditory Hallucinations, Hallucinations, Hopelessness, Paranoia, Suicidal Ideation Mental Status Examination - Personal Presentation Personal Presentation: Looks older than stated age - Affect Affect: Constricted - Motor Activity Motor Activity: Calm - Reliability in Providing Information Reliability in Providing Information: Good - Speech Speech: Organized - Mood Mood: Depressed, Anxious - Formal Thought Process Formal Thought Process: No Impairment - Cognitive Functions Orientation: Person, Place, Situation, Time Sensorium: Alert Attention/Concentration: Attentive Estimate of Intelligence: Average Judgement: Intact, as evidence by: Insight regarding need for hospitalization Memory: Recent intact, as evidence by: Ability to recall events of the day, Remote intact, as evidenced by: Abilit to recall sig. life events - Risk Risk: Withdrawal, Diminished functioning - Strength & Assets Inventory Strength & Assets Inventory: Cooperative - Limitations Limitations: Living alone, Other DSM 5 DX - DSM 5 DSM 5 Diagnosis: Opioid withdrawal Opioid use d/o- severe Alcohol use d/o - severe Alcohol withdrawal Cocaine use d/o- severe MAjor depressive d/o -recurrent, moderate - Recommended/Plan of Treatment Treatment Recommendations and Plan of Treatment: Start taper with methadone and librium Gabapentin for augmentation Lexapro for depression As needed medications All risks, benefits and alternatives of the meds discussed, and the pt agreed and understood. Attend groups and activities Supportive therapy and psychoeducation GA for abstinence CBT for relapse prevention Encourage MAT Refer to rehab or IOP, and self-help groups Smoking cessation with GA Nicotine patch if needed 34 min Projected ELOS: 4-5 days Prognosis: fair - Smoking Cessation Smoking Cessation Initiated: Yes
[2017-10-16] MEDS: Multiple Vitamins Tab PO SCH (13:52)
[2017-10-17] MEDS: Multiple Vitamins Tab PO SCH (09:52)
--- NOTE | 2017-10-17 13:52 | PCM.PYCHPN ---
Psychiatric Progress Note - Psychiatric Progress Note Patient seen today, length of contact: 16 min Patient Chief Complaint: "I having trouble sleeping" Problems Identified/Issues Discussed: The pt is seen, chart reviewed, case discussed with staff. Patient reports having some difficulty sleeping, as well as generalize muscle aches and intermittent tremors. Denies any syncope, seizure, CARTAGENA, focal weakness or any other complaint. The pt is compliant with medications and reports no side- effects. Patient needs more time to stabilize. After care discussed, support and psychoeducation given. Patient states that he is interested in a methadone maintenance following discharge. An extra dose given due to ongoing sxs Medication Change: Yes (detox changes daily) Medical Record Reviewed: Yes Mental Status Examination - Cognitive Function Orientation: Person, Place, Situation, Time Memory: Intact Attention: WNL Concentration: WNL Association: WNL Fund of Knowledge: WNL - Mood Mood: Depressed, Anxious - Affect Affect: Constricted - Speech Speech: Soft - Formal Thought Process Formal Thought Process: No Impairment - Suicidal Ideation Suicidal Ideation: No - Homicidal Ideation Homicidal Ideation: No Goal/Treatment Plan - Goal/Treatment Plan Need for Continued Stay: Remain at risks for inpatient hospitalization, Discharge may exacerbated symptoms, Severe functional impairment Progress Toward Problem(s) and Goals/Treatment Plan: Start taper with methadone and librium Gabapentin for augmentation Lexapro for depression As needed medications All risks, benefits and alternatives of the meds discussed, and the pt agreed and understood. Attend groups and activities Supportive therapy and psychoeducation DE for abstinence CBT for relapse prevention Encourage MAT Refer to rehab or IOP, and self-help groups Smoking cessation with DE Nicotine patch if needed Estimated Date of D/C: 10/20/17 - Smoking Cessation Smoking Cessation Initiated: Yes
[2017-10-18] MEDS: guaiFENesin DM 100 mg-10 mg/5 ml UD PO PRN ×2 (06:37→13:13)
[2017-10-18] MEDS: Albuterol HFA 90 mcg/actuation (8 g) INH PRN (09:31)
[2017-10-18] MEDS: Multiple Vitamins Tab PO SCH (09:32)
[2017-10-18] MEDS ORDERED: Bisacodyl 5mg EC Tab PO ONE (13:00)
--- NOTE | 2017-10-18 14:12 | PCM.PYCHPN ---
Psychiatric Progress Note - Psychiatric Progress Note Patient seen today, length of contact: 17 min Patient Chief Complaint: "I having a little chest tightness" Problems Identified/Issues Discussed: The pt is seen, chart reviewed, case discussed with staff. Patient admits to having new, mild chest tightness that began this morning, associated with cough and respirations. Denies any palpitations, n/v or diaphoresis. His sleep did improve last night. Continues to have some generalize myalgias. Denies any other complaint. The pt is compliant with medications and reports no side- effects. Patient needs more time to stabilize. After care discussed, support and psychoeducation given. Medication Change: Yes (detox changes daily) Medical Record Reviewed: Yes Mental Status Examination - Cognitive Function Orientation: Person, Place, Situation, Time Memory: Intact Attention: WNL Concentration: WNL Association: WNL Fund of Knowledge: WNL - Mood Mood: Depressed, Anxious - Affect Affect: Constricted - Speech Speech: Soft - Formal Thought Process Formal Thought Process: No Impairment - Suicidal Ideation Suicidal Ideation: No - Homicidal Ideation Homicidal Ideation: No Goal/Treatment Plan - Goal/Treatment Plan Need for Continued Stay: Remain at risks for inpatient hospitalization, Discharge may exacerbated symptoms, Severe functional impairment Progress Toward Problem(s) and Goals/Treatment Plan: ERICA: Start taper with methadone and librium Gabapentin for augmentation Lexapro for depression As needed medications All risks, benefits and alternatives of the meds discussed, and the pt agreed and understood. Attend groups and activities Supportive therapy and psychoeducation RI for abstinence CBT for relapse prevention Encourage MAT Refer to rehab or IOP, and self-help groups Smoking cessation with RI Nicotine patch if needed Back pain: Sacral and Coccyx XR ordered Flexeril given for muscle relaxtion Chest tightness: EKG from 10/14/17 was NSR at 71 CXR from 10/14/17 showed bilateral atelectasis Robitussin prn given for cough Estimated Date of D/C: 10/20/17
--- NOTE | 2017-10-18 14:34 | RAD ---
PROCEDURE: Radiographs of the Sacrum and Coccyx HISTORY: history of fall and pain COMPARISON: None available. TECHNIQUE: Frontal and lateral views of the sacrum and coccyx FINDINGS: BONES: Sacrum and coccyx limited by overlying bowel gas and stool. No fracture or focal lesion. SACROILIAC JOINTS: Unremarkable. OTHER FINDINGS: None. IMPRESSION: No demonstrated fracture or dislocation.
[2017-10-18] MEDS ORDERED: Magnesium Hydroxide Susp 30 ml UD PO ONE (20:23)
[2017-10-19] MEDS: Albuterol HFA 90 mcg/actuation (8 g) INH PRN ×2 (07:39→18:03)
[2017-10-19] MEDS: guaiFENesin DM 100 mg-10 mg/5 ml UD PO PRN ×2 (07:55→14:01)
[2017-10-19] MEDS: Multiple Vitamins Tab PO SCH (09:08)
[2017-10-19] MEDS ORDERED: Pneumococcal 23-Valent Vaccine IM ONE (10:00)
[2017-10-19] MEDS ORDERED: Influenza Vaccine 60 mcg/0.5 mL SYR (4YR UP) IM ONE (10:00)
--- NOTE | 2017-10-19 13:42 | PCM.PYCHPN ---
Psychiatric Progress Note - Psychiatric Progress Note Patient seen today, length of contact: 18 min Patient Chief Complaint: "I'm doing alright" Problems Identified/Issues Discussed: The pt is seen, chart reviewed, case discussed with staff. Patient reports feeling better today. Still having some generalized muscle aches. Denies any other complaint. The pt is compliant with medications and reports no side- effects. Patient needs more time to stabilize. After care discussed, support and psychoeducation given. Medication Change: Yes (detox changes daily) Medical Record Reviewed: Yes Mental Status Examination - Cognitive Function Orientation: Person, Place, Situation, Time Memory: Intact Attention: WNL Concentration: WNL Association: WNL Fund of Knowledge: WNL - Mood Mood: Depressed, Anxious - Affect Affect: Constricted - Speech Speech: Soft - Formal Thought Process Formal Thought Process: No Impairment - Suicidal Ideation Suicidal Ideation: No - Homicidal Ideation Homicidal Ideation: No Goal/Treatment Plan - Goal/Treatment Plan Need for Continued Stay: Remain at risks for inpatient hospitalization, Discharge may exacerbated symptoms, Severe functional impairment Progress Toward Problem(s) and Goals/Treatment Plan: ERICA: Start taper with methadone and librium Gabapentin for augmentation Lexapro for depression As needed medications All risks, benefits and alternatives of the meds discussed, and the pt agreed and understood. Attend groups and activities Supportive therapy and psychoeducation ME for abstinence CBT for relapse prevention Encourage MAT Refer to rehab or IOP, and self-help groups Smoking cessation with ME Nicotine patch if needed Back pain: Sacral and Coccyx XR ordered Flexeril given for muscle relaxtion Chest tightness: EKG from 10/14/17 was NSR at 71 CXR from 10/14/17 showed bilateral atelectasis Robitussin prn given for cough Estimated Date of D/C: 10/21/17 (Needs more time for d/c planning )
[2017-10-19] MEDS ORDERED: Bisacodyl 5mg EC Tab PO ONE (14:21)
[2017-10-19 14:32] VITALS: O2SAT 95
[2017-10-20] MEDS: guaiFENesin DM 100 mg-10 mg/5 ml UD PO PRN ×2 (06:00→13:22)
[2017-10-20] MEDS: Multiple Vitamins Tab PO SCH (09:37)
[2017-10-20] MEDS: Albuterol HFA 90 mcg/actuation (8 g) INH PRN (11:19)
--- NOTE | 2017-10-20 12:13 | PCM.PYCHPN ---
Psychiatric Progress Note - Psychiatric Progress Note Patient seen today, length of contact: 18 min Patient Chief Complaint: "I'm doing alright" Problems Identified/Issues Discussed: The pt is seen, chart reviewed, case discussed with staff. Support given, CBT and MA used briefly No new symptoms reported, improving slowly and needs more time No SEs from medications, risks discussed. After care discussed - leaving tomorrow, will stay in a retirement and go to [facility] on Monday Meds sent, risks discussed Medication Change: Yes (detox changes daily) Medical Record Reviewed: Yes Mental Status Examination - Cognitive Function Orientation: Person, Place, Situation, Time Memory: Intact Attention: WNL Concentration: WNL Association: WNL Fund of Knowledge: WNL - Mood Mood: Depressed, Anxious - Affect Affect: Constricted - Speech Speech: Soft - Formal Thought Process Formal Thought Process: No Impairment - Suicidal Ideation Suicidal Ideation: No - Homicidal Ideation Homicidal Ideation: No Goal/Treatment Plan - Goal/Treatment Plan Need for Continued Stay: Remain at risks for inpatient hospitalization, Discharge may exacerbated symptoms, Severe functional impairment Progress Toward Problem(s) and Goals/Treatment Plan: ERICA: methadone and librium taper Gabapentin for augmentation Lexapro for depression As needed medications All risks, benefits and alternatives of the meds discussed, and the pt agreed and understood. Attend groups and activities Supportive therapy and psychoeducation MA for abstinence CBT for relapse prevention Encourage MAT Refer to rehab or IOP, and self-help groups Smoking cessation with MA Nicotine patch if needed Back pain: Sacral and Coccyx XR ordered Flexeril given for muscle relaxtion Chest tightness: EKG from 10/14/17 was NSR at 71 CXR from 10/14/17 showed bilateral atelectasis Robitussin prn given for cough Estimated Date of D/C: 10/21/17 (Needs more time for d/c planning )
[2017-10-21] MEDS: guaiFENesin DM 100 mg-10 mg/5 ml UD PO PRN (02:32)
[2017-10-21 06:22] VITALS: BP 118/73; PULSE 68; RESP 20; TEMP 97.5
--- NOTE | 2017-10-23 16:39 | CARD ---
APPROVED REPORT EKG Measurement Heart [id number] <Conclusion> Sinus bradycardia Otherwise normal ECG
== END 2017-10-21 08:00 | disposition home or self-care (01) | DRG 744 ==
LOC: C.ER 19:59 → SUPCPDRO 19:59 → C.7D 10-16 00:28
PROVIDERS: ADMIT Psychiatry & Neurology Psychiatry; ATTEND Psychiatry & Neurology Psychiatry
PROC: HZ52ZZZ Individual Psychotherapy for Substance Abuse Treatment, Cognitive-Behavioral (ICD-10-PCS; principal; 2017-10-16)
PROC: HZ2ZZZZ Detoxification Services for Substance Abuse Treatment (ICD-10-PCS; 2017-10-16)
PROC: HZ42ZZZ Group Counseling for Substance Abuse Treatment, Cognitive-Behavioral (ICD-10-PCS; 2017-10-16)
PROC: HZ59ZZZ Individual Psychotherapy for Substance Abuse Treatment, Supportive (ICD-10-PCS; 2017-10-16)
PROC: HZ56ZZZ Individual Psychotherapy for Substance Abuse Treatment, Psychoeducation (ICD-10-PCS; 2017-10-16)
PROC: HZ46ZZZ Group Counseling for Substance Abuse Treatment, Psychoeducation (ICD-10-PCS; 2017-10-16)
DX: F11.23 Opioid dependence with withdrawal (principal); F33.1 Major depressive disorder, recurrent, moderate; F14.20 Cocaine dependence, uncomplicated; F10.230 Alcohol dependence with withdrawal, uncomplicated; F41.9 Anxiety disorder, unspecified; F17.210 Nicotine dependence, cigarettes, uncomplicated; M19.90 Unspecified osteoarthritis, unspecified site; Y90.6 Blood alcohol level of 120-199 mg/100 ml; M54.9 Dorsalgia, unspecified

== ENCOUNTER 2017-11-01 21:55 | Emergency (ER) | payer MEDICAID ==
[2017-11-01 21:55] VITALS: BMI 29.0
--- NOTE | 2017-11-01 22:38 | C.PDOC ---
History Of Present Illness 56 year old male presents to the ED c/o not feeling well tonight. Patient states he has been drinking alcohol tonight. Patient denies any physical complaints at this time. Time Seen by Provider: 11/01/17 22:37 Chief Complaint (Nursing): Substance Abuse History Per: Patient History/Exam Limitations: intoxication Onset/Duration Of Symptoms: Days Current Symptoms Are (Timing): Still Present Suicide/Self Injury Attempted (Context): None Modifying Factor(s): Alcohol Associated Symptoms: denies: Depression, Suicidal Thoughts, Suicidal Plan Involuntary Hold By: None Recent travel outside of the [place]: No Additional History Per: Patient Past Medical History Reviewed: Historical Data, Nursing Documentation, Vital Signs Vital Signs: Last Vital Signs Temp 98.6 F 11/02/17 02:46 Pulse 72 11/02/17 02:46 Resp 20 11/02/17 02:46 BP 137/86 11/02/17 02:46 Pulse Ox 98 11/02/17 02:46 - Medical History PMH: Anxiety, Arthritis, Back Problems, Bronchitis (PT DENIES), COPD (PT DENIES) , Depression, Fractures (fx left leg), Gastrointestinal Ulcer, Gall Bladder Disease, HTN, Kidney Stones, Chronic Kidney Disease, Seizures (alcohol induced) Denies: Diabetes, Hepatitis, HIV, Sexually Transmitted Disease Surgical History: No Surg Hx - [facility] Procedures ALCOHOL DETOXIFICATION (11/06/14) COMBINED ALCOHOL AND DRUG DETOXIFICATION (05/05/15) DETOXIFICATION SERVICES FOR SUBSTANCE ABUSE TREATMENT (10/16/17) GROUP TRUCK DOCK MATERIAL MOVER FOR SUBSTANCE ABUSE TREATMENT, PSYCHOEDUCATION (10/16/17) GROUP TRUCK DOCK MATERIAL MOVER FOR SUBSTANCE ABUSE, COGNITIVE BEHAVIORAL (10/16/17) GROUP PSYCHOTHERAPY (05/24/16) INDIV PSYCHOTHERAPY FOR SUBSTANCE ABUSE TREATMENT, SUPPORT (10/16/17) INDIV PSYCHOTHERAPY FOR SUBSTANCE ABUSE, COGNITIV BEHAVIORAL (10/16/17) INDIV PSYCHOTHERAPY FOR SUBSTANCE ABUSE, MOTIVATION ENHANCE (06/15/17) INDIV PSYCHOTHERAPY FOR SUBSTANCE ABUSE, PSYCHOEDUCATION (10/16/17) MEDICATION MANAGEMENT (03/17/17) MEDS MGMT FOR SUBSTANCE ABUSE TREATMENT, OTH REPL MED (06/15/17) PHARMACOTHERAPY FOR SUBSTANCE ABUSE, METHADONE MAINT (07/08/17) Family History: States: Unknown Family Hx - Social History Hx Tobacco Use: Yes Hx Alcohol Use: Yes Hx Substance Use: Yes - Immunization History Hx Tetanus Toxoid Vaccination: No Hx Influenza Vaccination: No Hx Pneumococcal Vaccination: No Review Of Systems Constitutional: Negative for: Fever, Chills Cardiovascular: Negative for: Chest Pain Respiratory: Negative for: Shortness of Breath Gastrointestinal: Negative for: Abdominal Pain Skin: Negative for: Rash Neurological: Negative for: Weakness, Numbness Psych: Negative for: Depression, Suicidal ideation Physical Exam - Physical Exam Appears: Non-toxic, No Acute Distress Skin: Normal Color, Warm, Dry Head: Atraumatic, Normacephalic Eye(s): bilateral: Normal Inspection Nose: No Discharge Oral Mucosa: Moist Neck: Normal ROM, Supple Chest: Symmetrical Cardiovascular: Rhythm Regular, No Murmur Respiratory: Normal Breath Sounds, No Rales, No Rhonchi, No Wheezing Gastrointestinal/Abdominal: Soft, No Tenderness, No Guarding, No Rebound Extremity: Normal ROM, No Tenderness, No Swelling Neurological/Psych: Oriented x3 ED Course And Treatment - Laboratory Results Result Diagrams: 11/01/17 22:50 11/01/17 22:50 O2 Sat by Pulse Oximetry: 95 (On RA) Pulse Ox Interpretation: Normal Medical Decision Making Medical Decision Making: Impression: alcohol intoxication Plan: * Labs * UA Disposition Counseled Patient/Family Regarding: Diagnosis - Disposition Referrals: [facility] [Outside] Disposition: HOME/ ROUTINE Disposition Time: 05:10 Condition: STABLE Instructions: Alcohol Abuse and Alcoholism (DC) Forms: [facility] (Rwandan) - POA Present On Arrival: None - Clinical Impression Clinical Impression: Alcohol intoxication - Scribe Statement The provider has reviewed the documentation as recorded by the Scribe Nito Cameron All medical record entries made by the Scribe were at my direction and personally dictated by me. I have reviewed the chart and agree that the record accurately reflects my personal performance of the history, physical exam, medical decision making, and the department course for this patient. I have also personally directed, reviewed, and agree with the discharge instructions and disposition.
[2017-11-01 22:53] LABS: BASO # 0.1 K/uL (0.0-0.2); BASO % 0.8 % (0.0-2.0); EOS # 0.1 K/uL (0.0-0.7); EOS % 0.8 % (0.0-4.0); HEMOGLOBIN 13.9 g/dL (12.0-18.0); LYMPH % 26.7 % (20.0-40.0); MEAN CELL VOLUME 97.8 fL (80.0-94.0); MEAN CORPUSCULAR HEMOGLOBIN 33.9 pg (27.0-31.0); MEAN CORPUSCULAR HGB CONC 34.7 g/dL (33.0-37.0); MEAN PLATELET VOLUME 7.3 fL (7.2-11.7); MONO # 0.7 K/uL (0.0-0.8); MONO % 9.1 % (0.0-10.0); NEUT # 4.6 K/uL (1.8-7.0); NEUT % 62.6 % (50.0-75.0); NRBC % 0.1 % (0.0-2.0); RBC 4.1 Mil/uL (4.40-5.90); RED CELL DISTRIBUTION WIDTH 13.1 % (11.5-14.5); WHITE BLOOD COUNT 7.4 K/uL (4.8-10.8)
[2017-11-01 23:09] LABS: ALB/GLOB RATIO 1.2 (1.0-2.1); ALBUMIN 4.2 g/dL (3.5-5.0); ALT/SGPT 184 U/L (21-72); AST/SGOT 123 U/L (17-59); BLOOD UREA NITROGEN 15 mg/dL (9-20); CALCIUM 8.5 mg/dl (8.6-10.4); GFR AFRICAN-AMERICAN > 60; GFR NON-AFRICAN AMERICAN > 60
[2017-11-01 23:11] LABS: SQUAMOUS EPITHIAL 1 /hpf (0-5); URINE BACTERIA OCC (<OCC); URINE BILIRUBIN NEGATIVE (NEGATIVE); URINE BLOOD NEGATIVE (NEGATIVE); URINE CLARITY Hazy (Clear); URINE COLOR Yellow (YELLOW); URINE GLUCOSE (UA) NORMAL (Normal); URINE LEUKOCYTE ESTERASE TRACE Leu/uL (Negative); URINE PROTEIN NEGATIVE (NEGATIVE); URINE UROBILINOGEN NORMAL mg/dL (0.2-1.0)
[2017-11-01 23:23] LABS: BARBITURATES, UR NEGATIVE (NEGATIVE); PHENCYCLIDINE, UR NEGATIVE (NEGATIVE)
[2017-11-01 23:24] LABS: BENZODIAZEPINES, UR POSITIVE (NEGATIVE); OPIATES, UR POSITIVE (NEGATIVE)
[2017-11-02 05:35] VITALS: BP 128/92; PULSE 88; RESP 18; TEMP 97.6; O2SAT 98
== END 2017-11-02 05:30 | disposition home or self-care (01) ==
LOC: C.ER 21:55
DX: F10.129 Alcohol abuse with intoxication, unspecified (principal); Y90.6 Blood alcohol level of 120-199 mg/100 ml

== ENCOUNTER 2017-11-03 19:36 | Emergency (ER) | payer MEDICAID ==
[2017-11-03 19:36] VITALS: BMI 29.0
[2017-11-03 20:05] VITALS: BP 126/69; PULSE 89; RESP 20; TEMP 98.1; O2SAT 95
--- NOTE | 2017-11-03 21:22 | C.PDOC ---
History Of Present Illness 56 year old male presents to the ED requesting a refill for his albuterol inhaler. Patient denies shortness of breath and has no other complaints at this time. Time Seen by Provider: 11/03/17 19:45 Chief Complaint (Nursing): Med Refill History Per: Patient History/Exam Limitations: no limitations Onset/Duration Of Symptoms: Hrs Current Symptoms Are (Timing): Still Present Additional History Per: Patient Past Medical History Reviewed: Historical Data, Nursing Documentation, Vital Signs Vital Signs: Last Vital Signs Temp 98.1 F 11/03/17 19:52 Pulse 89 11/03/17 19:52 Resp 20 11/03/17 19:52 BP 126/69 11/03/17 19:52 Pulse Ox 95 11/03/17 21:25 - Medical History PMH: Anxiety, Arthritis, Back Problems, Bronchitis (PT DENIES), COPD (PT DENIES) , Depression, Fractures (fx left leg), Gastrointestinal Ulcer, Gall Bladder Disease, HTN, Kidney Stones, Chronic Kidney Disease, Seizures (alcohol induced) Denies: Diabetes, Hepatitis, HIV, Sexually Transmitted Disease Surgical History: No Surg Hx - [facility] Procedures ALCOHOL DETOXIFICATION (11/06/14) COMBINED ALCOHOL AND DRUG DETOXIFICATION (05/05/15) DETOXIFICATION SERVICES FOR SUBSTANCE ABUSE TREATMENT (10/16/17) GROUP HEAD UP OPERATOR HELPER FOR SUBSTANCE ABUSE TREATMENT, PSYCHOEDUCATION (10/16/17) GROUP HEAD UP OPERATOR HELPER FOR SUBSTANCE ABUSE, COGNITIVE BEHAVIORAL (10/16/17) GROUP PSYCHOTHERAPY (05/24/16) INDIV PSYCHOTHERAPY FOR SUBSTANCE ABUSE TREATMENT, SUPPORT (10/16/17) INDIV PSYCHOTHERAPY FOR SUBSTANCE ABUSE, COGNITIV BEHAVIORAL (10/16/17) INDIV PSYCHOTHERAPY FOR SUBSTANCE ABUSE, MOTIVATION ENHANCE (06/15/17) INDIV PSYCHOTHERAPY FOR SUBSTANCE ABUSE, PSYCHOEDUCATION (10/16/17) MEDICATION MANAGEMENT (03/17/17) MEDS MGMT FOR SUBSTANCE ABUSE TREATMENT, OTH REPL MED (06/15/17) PHARMACOTHERAPY FOR SUBSTANCE ABUSE, METHADONE MAINT (07/08/17) Family History: States: Unknown Family Hx - Social History Hx Tobacco Use: Yes Hx Alcohol Use: Yes Hx Substance Use: No - Immunization History Hx Tetanus Toxoid Vaccination: No Hx Influenza Vaccination: No Hx Pneumococcal Vaccination: No Review Of Systems Constitutional: Positive for: Other (albuterol inhaler refill ) Respiratory: Positive for: Other. Negative for: Shortness of Breath Physical Exam - Physical Exam Appears: Non-toxic, No Acute Distress, Unkempt Skin: Normal Color, Warm, Dry Oral Mucosa: Moist Neck: Supple Chest: Symmetrical, No Deformity, No Tenderness Cardiovascular: Rhythm Regular, No Murmur Respiratory: Normal Breath Sounds, No Rales, No Rhonchi, No Wheezing Neurological/Psych: Oriented x3, Normal Speech, Normal Cognition ED Course And Treatment O2 Sat by Pulse Oximetry: 95 (on RA ) Pulse Ox Interpretation: Normal Medical Decision Making Medical Decision Making: Progress: Patient provided with Rx for Albuterol INH and is advised to f/u in clinic within 2-5 days for further evaluation. Disposition Counseled Patient/Family Regarding: Diagnosis, Need For Followup, Rx Given - Disposition Disposition: HOME/ ROUTINE Disposition Time: 19:50 Condition: GOOD Additional Instructions: Follow up with the clinic in 2-5 days for further evaluation Prescriptions: Albuterol HFA [Ventolin HFA 90 mcg/actuation (8 g)] 1 puff IH Q4 #1 puff Instructions: Albuterol Forms: [facility] ([place]ao [place]omean) - POA Present On Arrival: None - Clinical Impression Clinical Impression: History of COPD, Medicine refill - PA / BUILDING CODE INSPECTOR / Resident Statement MD/DO has reviewed & agrees with the documentation as recorded. - Scribe Statement The provider has reviewed the documentation as recorded by the Scribe (Destiny Villagran) All medical record entries made by the Scribe were at my direction and personally dictated by me. I have reviewed the chart and agree that the record accurately reflects my personal performance of the history, physical exam, medical decision making, and the department course for this patient. I have also personally directed, reviewed, and agree with the discharge instructions and disposition.
== END 2017-11-03 19:58 | disposition home or self-care (01) ==
LOC: C.ER 19:36
DX: Z76.0 Encounter for issue of repeat prescription (principal); J44.9 Chronic obstructive pulmonary disease, unspecified; I12.9 Hypertensive chronic kidney disease with stage 1 through stage 4 chronic kidney disease, or unspecified chronic kidney disease; N18.9 Chronic kidney disease, unspecified; Z72.0 Tobacco use

== ENCOUNTER 2017-12-14 22:14 | Emergency (ER) | payer MEDICAID ==
[2017-12-14 22:15] VITALS: BMI 29.4
[2017-12-14] MEDS ORDERED: Naloxone 0.4 mg/ml Inj (Adult) IVP STA (23:01)
[2017-12-14] MEDS ORDERED: Sodium Chloride 0.9% 1,000 ML IV ONE (23:01)
--- NOTE | 2017-12-14 23:01 | C.PDOC ---
History Of Present Illness Patient presents to the ER via EMS intoxicated, admits to taking heroin intranasally. Denies physical complaints at this time. Time Seen by Provider: 12/14/17 23:00 Chief Complaint (Nursing): Substance Abuse History Per: Patient History/Exam Limitations: no limitations Onset/Duration Of Symptoms: Hrs Current Symptoms Are (Timing): Still Present Suicide/Self Injury Attempted (Context): None Modifying Factor(s): Alcohol, Other (heroin) Severity: None Pain Scale Rating Of: 0 Associated Symptoms: denies: Depression, Suicidal Thoughts Involuntary Hold By: None Recent travel outside of the [place]: No Past Medical History Reviewed: Historical Data, Nursing Documentation, Vital Signs Vital Signs: Last Vital Signs Temp 98.1 F 12/14/17 22:34 Pulse 72 12/15/17 03:42 Resp 18 12/15/17 03:42 BP 126/81 12/15/17 03:42 Pulse Ox 95 12/15/17 03:42 - Medical History PMH: Anxiety, Arthritis, Back Problems, Bronchitis, COPD, Depression, Fractures (fx left leg), Gastrointestinal Ulcer, Gall Bladder Disease, HTN, Kidney Stones , Migraine, Seizures (alcohol induced) - [facility] Procedures ALCOHOL DETOXIFICATION (11/06/14) COMBINED ALCOHOL AND DRUG DETOXIFICATION (05/05/15) DETOXIFICATION SERVICES FOR SUBSTANCE ABUSE TREATMENT (10/16/17) GROUP PLATE HANGER FOR SUBSTANCE ABUSE TREATMENT, PSYCHOEDUCATION (10/16/17) GROUP PLATE HANGER FOR SUBSTANCE ABUSE, COGNITIVE BEHAVIORAL (10/16/17) GROUP PSYCHOTHERAPY (05/24/16) INDIV PSYCHOTHERAPY FOR SUBSTANCE ABUSE TREATMENT, SUPPORT (10/16/17) INDIV PSYCHOTHERAPY FOR SUBSTANCE ABUSE, COGNITIV BEHAVIORAL (10/16/17) INDIV PSYCHOTHERAPY FOR SUBSTANCE ABUSE, MOTIVATION ENHANCE (06/15/17) INDIV PSYCHOTHERAPY FOR SUBSTANCE ABUSE, PSYCHOEDUCATION (10/16/17) MEDICATION MANAGEMENT (03/17/17) MEDS MGMT FOR SUBSTANCE ABUSE TREATMENT, OTH REPL MED (06/15/17) PHARMACOTHERAPY FOR SUBSTANCE ABUSE, METHADONE MAINT (07/08/17) Family History: States: No Known Family Hx - Social History Hx Tobacco Use: Yes Hx Alcohol Use: Yes Hx Substance Use: Yes - Immunization History Hx Tetanus Toxoid Vaccination: No Hx Influenza Vaccination: No Hx Pneumococcal Vaccination: No Review Of Systems Constitutional: Negative for: Fever, Chills Cardiovascular: Negative for: Chest Pain Respiratory: Negative for: Shortness of Breath Gastrointestinal: Negative for: Nausea, Vomiting, Diarrhea Physical Exam - Physical Exam Appears: Non-toxic, Other (Disheveled, foul smelling, ETOH on breath, arousable) Skin: Warm, Dry Head: Normacephalic Oral Mucosa: Moist Chest: Symmetrical, No Tenderness Cardiovascular: Rhythm Regular Respiratory: No Rales, No Rhonchi, No Wheezing Gastrointestinal/Abdominal: Soft, No Tenderness Neurological/Psych: Oriented x3 ED Course And Treatment - Laboratory Results Result Diagrams: 12/14/17 23:21 12/14/17 23:21 O2 Sat by Pulse Oximetry: 90 Pulse Ox Interpretation: Normal Progress Note: Blood work and urinalysis ordered. Narcan and IV fluids administered. Disposition Counseled Patient/Family Regarding: Studies Performed, Diagnosis, Need For Followup - Disposition Referrals: [facility] [Outside] Disposition: HOME/ ROUTINE Disposition Time: 23:01 Condition: FAIR Instructions: Alcohol Abuse and Alcoholism (DC) Forms: [facility] (Ethiopian) - Clinical Impression Clinical Impression: Alcohol intoxication - Scribe Statement The provider has reviewed the documentation as recorded by the Scribe Kayden Dumont All medical record entries made by the Scribe were at my direction and personally dictated by me. I have reviewed the chart and agree that the record accurately reflects my personal performance of the history, physical exam, medical decision making, and the department course for this patient. I have also personally directed, reviewed, and agree with the discharge instructions and disposition.
[2017-12-14 23:23] LABS: BASO # 0.1 K/uL (0.0-0.2); EOS # 0.2 K/uL (0.0-0.7); EOS % 3.7 % (0.0-4.0); HEMOGLOBIN 13.3 g/dL (12.0-18.0); LYMPH # 2.1 K/uL (1.0-4.3); MEAN CELL VOLUME 98.3 fL (80.0-94.0); MEAN CORPUSCULAR HEMOGLOBIN 33.9 pg (27.0-31.0); MEAN CORPUSCULAR HGB CONC 34.5 g/dL (33.0-37.0); MEAN PLATELET VOLUME 7.5 fL (7.2-11.7); MONO # 0.7 K/uL (0.0-0.8); MONO % 11.1 % (0.0-10.0); NEUT % 49.2 % (50.0-75.0); NRBC % 0.1 % (0.0-2.0); RBC 3.93 Mil/uL (4.40-5.90); RED CELL DISTRIBUTION WIDTH 12.9 % (11.5-14.5)
[2017-12-14] MEDS ORDERED: Naloxone 0.4 mg/ml Inj (Adult) ONE (23:24)
[2017-12-14] MEDS ORDERED: Sodium Chloride 0.9% 1,000 ML ONE (23:24)
[2017-12-14 23:37] LABS: ALB/GLOB RATIO 1.2 (1.0-2.1); ALBUMIN 3.8 g/dL (3.5-5.0); ALT/SGPT 121 U/L (21-72); AST/SGOT 93 U/L (17-59); BLOOD UREA NITROGEN 18 mg/dL (9-20); CALCIUM 8.9 mg/dl (8.6-10.4); GFR AFRICAN-AMERICAN > 60; GFR NON-AFRICAN AMERICAN > 60
[2017-12-15 03:43] VITALS: RESP 18
[2017-12-15 05:28] VITALS: BP 124/76; PULSE 66; TEMP 98.4; O2SAT 97
== END 2017-12-15 05:28 | disposition home or self-care (01) ==
LOC: C.ER 22:14
DX: F10.129 Alcohol abuse with intoxication, unspecified (principal); Y90.2 Blood alcohol level of 40-59 mg/100 ml
CPT/HCPCS: 80053; 80320; 82948; 85025; 96361; 96374; 99285; J2310; J7040

== ENCOUNTER 2018-03-05 06:55 | Emergency (ER) | payer MEDICAID ==
[2018-03-05 06:55] VITALS: BMI 29.0
[2018-03-05 07:29] VITALS: BP 153/92; PULSE 65; RESP 18; TEMP 97.9; O2SAT 95
--- NOTE | 2018-03-05 07:37 | C.PDOC ---
History Of Present Illness 57 year old male presents to the ED requesting detox for alcohol and heroin abuse. 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 Patient denies any acute complaints at this time. Patient in the ED accompanied by another person also requesting detox. Patient denies SI/HI, hallucinations, CP, SOB, weakness, weakness. Time Seen by Provider: 03/05/18 07:32 Chief Complaint (Nursing): Substance Abuse History Per: Patient History/Exam Limitations: intoxication Onset/Duration Of Symptoms: Hrs Current Symptoms Are (Timing): Still Present Suicide/Self Injury Attempted (Context): None Modifying Factor(s): Alcohol, Other (Heroin) Associated Symptoms: denies: Depression, Suicidal Thoughts, Suicidal Plan Involuntary Hold By: None Recent travel outside of the [place]: No Additional History Per: Patient Past Medical History Reviewed: Historical Data, Nursing Documentation, Vital Signs Vital Signs: Last Vital Signs Temp 97.9 F 03/05/18 07:28 Pulse 65 03/05/18 07:28 Resp 18 03/05/18 07:28 BP 153/92 H 03/05/18 07:28 Pulse Ox 95 03/06/18 21:57 - Medical History PMH: Anxiety, Arthritis, Back Problems, Bronchitis, COPD, Depression, Fractures (fx left leg), Gastrointestinal Ulcer, Gall Bladder Disease, HTN, Kidney Stones , Migraine, Chronic Kidney Disease, Seizures (alcohol induced), TIA (2013) Denies: Diabetes, Hepatitis, HIV, Hypercholesterolemia, Sexually Transmitted Disease Surgical History: No Surg Hx - [facility] Procedures ALCOHOL DETOXIFICATION (11/06/14) COMBINED ALCOHOL AND DRUG DETOXIFICATION (05/05/15) DETOXIFICATION SERVICES FOR SUBSTANCE ABUSE TREATMENT (10/16/17) GROUP SECOND WATCH SERGEANT FOR SUBSTANCE ABUSE TREATMENT, PSYCHOEDUCATION (10/16/17) GROUP SECOND WATCH SERGEANT FOR SUBSTANCE ABUSE, COGNITIVE BEHAVIORAL (10/16/17) GROUP PSYCHOTHERAPY (05/24/16) INDIV PSYCHOTHERAPY FOR SUBSTANCE ABUSE TREATMENT, SUPPORT (10/16/17) INDIV PSYCHOTHERAPY FOR SUBSTANCE ABUSE, COGNITIV BEHAVIORAL (10/16/17) INDIV PSYCHOTHERAPY FOR SUBSTANCE ABUSE, MOTIVATION ENHANCE (06/15/17) INDIV PSYCHOTHERAPY FOR SUBSTANCE ABUSE, PSYCHOEDUCATION (10/16/17) MEDICATION MANAGEMENT (03/17/17) MEDS MGMT FOR SUBSTANCE ABUSE TREATMENT, OTH REPL MED (06/15/17) PHARMACOTHERAPY FOR SUBSTANCE ABUSE, METHADONE MAINT (07/08/17) Family History: States: Unknown Family Hx - Social History Hx Tobacco Use: Yes Hx Alcohol Use: Yes (vodka) Hx Substance Use: Yes - Immunization History Hx Tetanus Toxoid Vaccination: No Hx Influenza Vaccination: No Hx Pneumococcal Vaccination: No Review Of Systems Constitutional: Negative for: Fever, Chills Cardiovascular: Negative for: Chest Pain, Palpitations Respiratory: Negative for: Cough, Shortness of Breath Gastrointestinal: Negative for: Nausea, Vomiting Skin: Negative for: Rash Neurological: Negative for: Weakness, Numbness Physical Exam - Physical Exam Appears: Non-toxic, No Acute Distress Skin: Normal Color, Warm, Dry Head: Atraumatic, Normacephalic Eye(s): bilateral: Normal Inspection Oral Mucosa: Moist Neck: Normal ROM, Supple Chest: Symmetrical Cardiovascular: Rhythm Regular Respiratory: Normal Breath Sounds, No Rales, No Rhonchi, No Wheezing Gastrointestinal/Abdominal: Soft, No Tenderness, No Guarding, No Rebound Extremity: Normal ROM, No Tenderness, No Swelling Neurological/Psych: Oriented x3, Normal Speech Gait: Steady ED Course And Treatment O2 Sat by Pulse Oximetry: 95 (ON RA) Pulse Ox Interpretation: Normal Medical Decision Making Medical Decision Making: pt notified he couldnt got to detox with his friend' pt chose to leave. advised to find another detox program. Disposition Counseled Patient/Family Regarding: Need For Followup - Disposition Disposition: HOME/ ROUTINE Disposition Time: 08:18 Condition: STABLE Additional Instructions: Please find another detox program- see list given to you by crisis counselor. Instructions: Drug Abuse and Drug Addiction (DC) Forms: [employer] [facility] (Armenian), General Discharge Instructions - Clinical Impression Clinical Impression: Substance abuse - PA / DENTURES LAB TECHNICIAN / Resident Statement MD/DO has reviewed & agrees with the documentation as recorded. - Scribe Statement The provider has reviewed the documentation as recorded by the Scribe Nito Cameron All medical record entries made by the Scribe were at my direction and personally dictated by me. I have reviewed the chart and agree that the record accurately reflects my personal performance of the history, physical exam, medical decision making, and the department course for this patient. I have also personally directed, reviewed, and agree with the discharge instructions and disposition.
== END 2018-03-05 08:41 | disposition home or self-care (01) ==
LOC: C.ER 06:55
DX: F19.10 Other psychoactive substance abuse, uncomplicated (principal)

== ENCOUNTER 2018-03-05 20:18 | Inpatient (IN) | payer MEDICAID ==
[2018-03-05 20:18] VITALS: BMI 29.0
[2018-03-05 20:48] LABS: BASO # 0.1 K/uL (0.0-0.2); BASO % 0.8 % (0.0-2.0); EOS # 0.3 K/uL (0.0-0.7); EOS % 3.8 % (0.0-4.0); LYMPH # 2.8 K/uL (1.0-4.3); LYMPH % 35.8 % (20.0-40.0); MEAN CELL VOLUME 98.7 fL (80.0-94.0); MEAN CORPUSCULAR HEMOGLOBIN 34.7 pg (27.0-31.0); MEAN CORPUSCULAR HGB CONC 35.2 g/dL (33.0-37.0); MEAN PLATELET VOLUME 7.5 fL (7.2-11.7); MONO # 0.8 K/uL (0.0-0.8); MONO % 10.7 % (0.0-10.0); NEUT # 3.8 K/uL (1.8-7.0); NEUT % 48.9 % (50.0-75.0); NRBC % 0.1 % (0.0-2.0); RBC 4.32 Mil/uL (4.40-5.90); WHITE BLOOD COUNT 7.9 K/uL (4.8-10.8)
[2018-03-05 20:57] LABS: SQUAMOUS EPITHIAL < 1 /hpf (0-5); URINE BILIRUBIN NEGATIVE (NEGATIVE); URINE BLOOD NEGATIVE (NEGATIVE); URINE CLARITY Clear (Clear); URINE COLOR Yellow (YELLOW); URINE GLUCOSE (UA) NORMAL (Normal); URINE LEUKOCYTE ESTERASE TRACE Leu/uL (Negative); URINE PROTEIN NEGATIVE (NEGATIVE)
[2018-03-05 20:59] LABS: ALB/GLOB RATIO 1.3 (1.0-2.1); ALBUMIN 4.4 g/dL (3.5-5.0); ALT/SGPT 125 U/L (21-72); AST/SGOT 87 U/L (17-59); BLOOD UREA NITROGEN 19 mg/dL (9-20); CALCIUM 9.9 mg/dl (8.6-10.4); GFR AFRICAN-AMERICAN > 60; GFR NON-AFRICAN AMERICAN > 60
[2018-03-05 21:10] LABS: BARBITURATES, UR NEGATIVE (NEGATIVE); BENZODIAZEPINES, UR NEGATIVE (NEGATIVE); PHENCYCLIDINE, UR NEGATIVE (NEGATIVE)
[2018-03-05 21:14] LABS: OPIATES, UR POSITIVE (NEGATIVE)
--- NOTE | 2018-03-05 21:36 | C.PDOC ---
History Of Present Illness 57 y/o male presents to ED requesting detox from narcotics and ETOH. Patient reports last used earlier today and denies SI/HI, sob, chest pain, history of withdrawal seizures or any other complaints at this time. Time Seen by Provider: 03/05/18 20:27 Chief Complaint (Nursing): Substance Abuse History Per: Patient History/Exam Limitations: no limitations Onset/Duration Of Symptoms: Days Current Symptoms Are (Timing): Still Present Suicide/Self Injury Attempted (Context): None Modifying Factor(s): Alcohol Past Medical History Reviewed: Historical Data, Nursing Documentation, Vital Signs Vital Signs: Last Vital Signs Temp 98.3 F 03/05/18 22:11 Pulse 86 03/05/18 22:11 Resp 18 03/05/18 22:11 BP 117/79 03/05/18 22:11 Pulse Ox 94 L 03/05/18 22:11 - Medical History PMH: Anxiety, Arthritis, Back Problems, Bronchitis, COPD, Depression, Fractures (fx left leg), Gastrointestinal Ulcer, Gall Bladder Disease, HTN, Kidney Stones , Migraine, Chronic Kidney Disease, Seizures (alcohol induced), TIA (2013) Surgical History: No Surg Hx - [facility] Procedures ALCOHOL DETOXIFICATION (11/06/14) COMBINED ALCOHOL AND DRUG DETOXIFICATION (05/05/15) DETOXIFICATION SERVICES FOR SUBSTANCE ABUSE TREATMENT (10/16/17) GROUP ATTENDING PATHOLOGIST FOR SUBSTANCE ABUSE TREATMENT, PSYCHOEDUCATION (10/16/17) GROUP ATTENDING PATHOLOGIST FOR SUBSTANCE ABUSE, COGNITIVE BEHAVIORAL (10/16/17) GROUP PSYCHOTHERAPY (05/24/16) INDIV PSYCHOTHERAPY FOR SUBSTANCE ABUSE TREATMENT, SUPPORT (10/16/17) INDIV PSYCHOTHERAPY FOR SUBSTANCE ABUSE, COGNITIV BEHAVIORAL (10/16/17) INDIV PSYCHOTHERAPY FOR SUBSTANCE ABUSE, MOTIVATION ENHANCE (06/15/17) INDIV PSYCHOTHERAPY FOR SUBSTANCE ABUSE, PSYCHOEDUCATION (10/16/17) MEDICATION MANAGEMENT (03/17/17) MEDS MGMT FOR SUBSTANCE ABUSE TREATMENT, OTH REPL MED (06/15/17) PHARMACOTHERAPY FOR SUBSTANCE ABUSE, METHADONE MAINT (07/08/17) Family History: States: No Known Family Hx - Social History Hx Tobacco Use: Yes Hx Alcohol Use: Yes (vodka) Hx Substance Use: Yes - Immunization History Hx Tetanus Toxoid Vaccination: No Hx Influenza Vaccination: No Hx Pneumococcal Vaccination: No Review Of Systems Constitutional: Negative for: Fever, Chills Cardiovascular: Negative for: Chest Pain Respiratory: Negative for: Shortness of Breath Gastrointestinal: Negative for: Nausea, Vomiting Skin: Negative for: Rash Psych: Positive for: Other (Substance abuse). Negative for: Suicidal ideation, Withdrawal Physical Exam - Physical Exam Appears: Non-toxic, No Acute Distress, Unkempt Skin: Warm, Dry, No Rash Head: Atraumatic, Normacephalic Eye(s): bilateral: Normal Inspection Oral Mucosa: Moist Neck: Supple Cardiovascular: Rhythm Regular Respiratory: Normal Breath Sounds, No Rales, No Rhonchi, No Wheezing Gastrointestinal/Abdominal: Soft, No Tenderness, No Guarding, No Rebound Extremity: Bilateral: Atraumatic Neurological/Psych: Oriented x3, Normal Speech, Normal Cognition Gait: Steady ED Course And Treatment - Laboratory Results Result Diagrams: 03/05/18 20:44 03/05/18 20:44 O2 Sat by Pulse Oximetry: 95 (RA) Pulse Ox Interpretation: Normal Medical Decision Making Medical Decision Making: Impression: Detox Plan: Labs for Medical clearance Progress: Labs ordered and reviewed. In my clinical judgment patient is medically cleared and stable for psychiatric admission. corrections caseworker contacted for evaluation. As per CW patient is to be admitted under Dr Ahmadi service for detox of alcohol and opiates Disposition - Disposition Disposition: HOSPITALIZED Disposition Time: 21:35 Condition: STABLE - POA Present On Arrival: None - Clinical Impression Clinical Impression: Opioid abuse with intoxication - PA / TURBINE ATTENDANT / Resident Statement MD/DO has reviewed & agrees with the documentation as recorded. - Scribe Statement The provider has reviewed the documentation as recorded by the Isidra Coulter All medical record entries made by the Lenoreibmaría were at my direction and personally dictated by me. I have reviewed the chart and agree that the record accurately reflects my personal performance of the history, physical exam, medical decision making, and the department course for this patient. I have also personally directed, reviewed, and agree with the discharge instructions and disposition. Decision To Admit - Pt Status Changed To: Hospital Disposition Of: Inpatient - Admit Certification Admit to Inpatient:: After my assessment, the patient will require hospitalization for at least two midnights. This is because of the severity of symptoms shown, intensity of services needed, and/or the medical risk in this patient being treated as an outpatient. - InPatient: Physician Admission Certification: I certify that this patient requires 2 or more midnights of care for the following reason:: Patient will benefit from inpatient detox for opiate and alcohol use - . Bed Request Type: Detox Admitting Physician: Ricarda Ahmadi Patient Diagnosis: Opioid abuse with intoxication
--- NOTE | 2018-03-05 21:54 | PCM.BM ---
<BulmaroBrissa - Last Filed: 03/05/18 21:53> Treatment Plan Problems - Problems identified on initial assessmt Potential for alcohol withdrawal Date Initiated: 03/05/18 Time Initiated: 21:53 Assessment reference: NA Status: Active Potential for opiate withdrawal Date Initiated: 03/05/18 Time Initiated: 21:54 Assessment reference: NA Status: Active Treatment assets and liabiliti Patient Assests: cooperative, self-reliant, ADL independent, negotiates basic needs, cognitively intact Patient Liabilities: substance abuse, medical problems - Milieu Protocol Maintain good personal hygiene: daily Encourage regular showers, daily Remind patient to perform daily oral care, daily Assist patient to perform ADL's Conduct patient checks and document Observation sheet: Q15 minutes Maintain personal safety: every shift Educate patient to report safety concerns to staff, every shift Monitor environment for contraband/sharps Medication safety: Monitor for expected outcome, potential side effects: every shift, Assess barriers to learning: every shift, Assess readiness for medication education: every shift <Clarita Elizondo - Last Filed: 03/06/18 11:43> - Diagnosis (1) Opioid use disorder, severe, dependence Status: Acute Interventions: 03/06/18 11:45 * Assess 7x/week regarding severity of withdrawal * Educate regarding risks, benefits, side effects and alternatives of medications * Use Motivational Interviewing for abstinence * Use CBT for relapse prevention * Medication management for withdrawal symptoms * Encourage medication assisted treatment * (2) Alcohol dependence Status: Chronic Interventions: 03/06/18 11:45 * Assess 7x/week regarding severity of withdrawal * Educate regarding risks, benefits, side effects and alternatives of medications * Use Motivational Interviewing for abstinence * Use CBT for relapse prevention * Medication management for withdrawal symptoms * Encourage medication assisted treatment * <Ceci Martinez - Last Filed: 03/07/18 13:34> Family Contact Family involvement: Family/SO is involved Family contact name: Tai Family contacted how many times per week?: 1 - Goals for Treatment Patient goals for treatment: Complete detox and discuss aftercare options with staff. Discharge/Continuing Care - Education Needs Education Needs: Patient Medication, Patient Diagnosis/Disease Process, Patient Coping Skills, Patient Anger Management skills, Patient Placement options, Patient Community resources, Significant Other Medication, Significant Other Diagnosis/Disease Process, Significant Other Coping Skills, Significant Other Anger Management skills, Significant Other Placement options, Significant Other Community resources - Discharge Discharge Criteria: No longer exhibiting s/s of withdrawal, Reduction of target symptoms Discharge to:: Home - Treatment Team Participation Patient/Family/SO Statement: 03/07/18 13:33 "I wanna go home after this. I can't commit to anything yet. I had some problems with outpatient..." Discussed with Family/SO: No Was Patient/Family/SO present at Treatment Team Meeting: Yes
[2018-03-06] MEDS ORDERED: Aluminum Hydroxide/Magnesium Hydroxide Susp (30 mL) PO PRN (00:04)
[2018-03-06] MEDS: Multiple Vitamins Tab PO SCH (09:40)
--- NOTE | 2018-03-06 11:43 | PCM.PSYCH ---
Initial Psychiatric Evaluation - Initial Psychiatric Evaluation Type of Admission: Voluntary Legal Status: Capacity Chief Complaint (in patient's own words): "Relapsed" History of Present Illness and Precipitating Events: The pt is seen, chart reviewed and case discussed He is well-known from numerous admissions and ER visits. He was d/c'ed from our psych clinic this year August and relapsed quickly. Pt is a 56 year old single, homeless but soon to be domiciled male self referred and admited to detox due to worsening withdrawal from alcohol and heroin. Pt is a poor historian. Pt is not compliant with the treatment. He has multiple psychiatric and detox admissions in the past. Pt states he has been depressed for a long time and has been suicidal in the past but denies now. Pt reports poor sleep but normal appetite. Feels somewhat depressed. He is drinking 2.5 pints of alcohol a day and snorting about 5 bags of heroin. He was d/c'ed from [facility] [place] detox unit in October and says that he doesn't know how long he was clean before he relapsed. He did not use the methadone or suboxone clinics after discharge. He started using alcohol at 8 years old, and started using heroin at 28 years old. 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 Past Psychiatric Hx: Pt has several psychiatric and detox admissions at [facility] [place] and he reports [facility] admissions in the past. 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 Pt reported that he drinks 2 pints of vodka daily, started at the age of 8, he uses cocaine 1/2 gm /month, started at the age of 28, and heroin intranasally, started at the age of 28. Current Medications: Active Medications Generic Name Dose Route Start Last Admin Trade Name Freq PRN Reason Stop Dose Admin Acetaminophen 650 mg 03/06/18 00:04 Tylenol 325mg Tab PO Q4H PRN Fever greater than 101 F Al Hydrox/Mg Hydrox/Simethicone 30 ml 03/06/18 00:04 Maalox 30 Ml PO TID PRN Indigestion / Heartburn Clonidine HCl 0.1 mg 03/06/18 00:01 Catapres PO Q4H PRN Symptoms of alcohol withdrawl Folic Acid 1 mg 03/06/18 10:00 03/06/18 09:40 Folic Acid PO 1 mg DAILY BEVERLEY Administration Loperamide HCl 2 mg 03/06/18 00:04 Imodium PO Q8 PRN Diarrhea Lorazepam 1 mg 03/06/18 00:01 03/06/18 10:41 Ativan PO 1 mg Q4H PRN Administration Symptoms of alcohol withdrawl Lorazepam 1 mg 03/06/18 06:00 03/06/18 08:15 Ativan PO 03/11/18 05:59 1 mg Q4 BEVERLEY Administration Taper Methadone HCl 20 mg 03/06/18 10:00 03/06/18 09:40 Methadone PO 03/10/18 09:59 20 mg Q24H BEVERLEY Administration Taper Multivitamins 1 tab 03/06/18 10:00 03/06/18 09:40 Hexavitamin PO 1 tab DAILY BEVERLEY Administration Ondansetron HCl 4 mg 03/06/18 00:04 Zofran Tab PO Q8 PRN Nausea/Vomiting Pseudoephedrine HCl 60 mg 03/06/18 00:04 Sudafed Tab PO QID PRN Nasal/Sinus Congestion Thiamine HCl 100 mg 03/06/18 10:00 03/06/18 09:40 Vitamin B1 Tab PO 100 mg DAILY BEVERLEY Administration Trazodone HCl 50 mg 03/06/18 00:01 Desyrel PO HS PRN Insomnia Past Psychiatric History - Past Psychiatric History Previous Treatment History: Inpatient Pertinent Medical Hx (Current Medical&Sleep Prob, Allergies): Allergies Allergy/AdvReac Type Severity Reaction Status Date / Time amitriptyline HCl Allergy SWELLING Verified 02/06/18 21:46 [From Elavil] naproxen Allergy SWELLING Verified 02/06/18 21:46 pregabalin [From Lyrica] Allergy SWELLING Verified 02/06/18 21:46 No Known Home Med 03/05/18 Review of Systems - Neurological Neurological: Tremor - Psychiatric Psychiatric: Abnormal Sleep Pattern, Anhedonia, Anxiety, Change in Appetite, Depression, Difficulty Concentrating, Irritability, Mood Swings. absent: Hallucinations, Homicidal Ideation, Suicidal Ideation Mental Status Examination - Personal Presentation Personal Presentation: Looks older than stated age - Affect Affect: Constricted - Motor Activity Motor Activity: Calm - Reliability in Providing Information Reliability in Providing Information: Good - Speech Speech: Organized - Mood Mood: Depressed, Anxious - Formal Thought Process Formal Thought Process: No Impairment - Cognitive Functions Orientation: Person, Place, Situation, Time Sensorium: Alert Attention/Concentration: Easily distracted Estimate of Intelligence: Average Judgement: Intact, as evidence by: Insight regarding need for hospitalization Memory: Recent intact, as evidence by: Ability to recall events of the day, Remote impaired as evidenced by: Inability to recall sig life events - Risk Risk: Seizure, Withdrawal, Diminished functioning - Strength & Assets Inventory Strength & Assets Inventory: Cooperative - Limitations Limitations: Living alone DSM 5 DX - DSM 5 DSM 5 Diagnosis: Alcohol withdrawal Alcohol use d/o - severe Opioid withdrawal Opioid use d/o- severe Major depressive d/o - recurrent, moderate Tobacco use d/o - severe - Recommended/Plan of Treatment Treatment Recommendations and Plan of Treatment: Taper with ativan, methadone Remeron for depression Gabapentin for augmentation if needed As needed medications All risks, benefits and alternatives of the meds discussed, and the pt agreed and understood. Attend groups and activities Supportive therapy and psychoeducation CT for abstinence CBT for relapse prevention Encourage MAT Refer to rehab or IOP, and self-help groups Smoking cessation with CT Nicotine patch if needed 34 min Projected ELOS: 4 days - Smoking Cessation Smoking Cessation Initiated: Yes
[2018-03-07] MEDS: Multiple Vitamins Tab PO SCH (09:10)
--- NOTE | 2018-03-07 14:02 | PCM.PYCHPN ---
Psychiatric Progress Note - Psychiatric Progress Note Patient seen today, [facility] Chief Complaint: "Not doing good yet" Problems Identified/Issues Discussed: The pt is seen, chart reviewed, case discussed with staff. The pt is compliant with medications and reports no side-effects. Symptoms are improving but needs more time to stabilize. Pt attends groups and activities. Support given, psycho-education provided. After care discussed. Medication Change: Yes (detox changes daily) Medical Record Reviewed: Yes Mental Status Examination - Cognitive Function Orientation: Person, Place, Situation, Time Memory: Impaired Attention: Poor Concentration: Poor Association: WNL Fund of Knowledge: WNL - Mood Mood: Depressed, Anxious - Affect Affect: Constricted - Speech Speech: Slurred - Formal Thought Process Formal Thought Process: No Impairment - Suicidal Ideation Suicidal Ideation: No - Homicidal Ideation Homicidal Ideation: No Goal/Treatment Plan - Goal/Treatment Plan Need for Continued Stay: Discharge may exacerbated symptoms, Severe functional impairment Progress Toward Problem(s) and Goals/Treatment Plan: Taper with ativan, methadone Remeron for depression Gabapentin for augmentation if needed As needed medications All risks, benefits and alternatives of the meds discussed, and the pt agreed and understood. Attend groups and activities Supportive therapy and psychoeducation [place] for abstinence CBT for relapse prevention Encourage MAT Refer to rehab or IOP, and self-help groups Smoking cessation with [place] Nicotine patch if needed Estimated Date of D/C: 03/11/18
[2018-03-08] MEDS: Multiple Vitamins Tab PO SCH (09:15)
--- NOTE | 2018-03-08 13:52 | PCM.PYCHPN ---
Psychiatric Progress Note - Psychiatric Progress Note Patient seen today, length of contact: 16 min Patient Chief Complaint: "So so" Problems Identified/Issues Discussed: The pt is seen, chart reviewed, case discussed with staff. The pt is compliant with medications and reports no side-effects. Symptoms are improving but needs more time to stabilize. He says he knows his detox will not fully completed tomorrow but he wants to leave bc he has to take care of "things" re his newly-approved housing. Risks discussed - he understood After care discussed, support and psychoeducation given. Medication Change: Yes (detox changes daily) Medical Record Reviewed: Yes Mental Status Examination - Cognitive Function Orientation: Person, Place, Situation, Time Memory: Impaired Attention: Poor Concentration: Poor Association: WNL Fund of Knowledge: WNL - Mood Mood: Depressed, Anxious - Affect Affect: Constricted - Speech Speech: Slurred - Formal Thought Process Formal Thought Process: No Impairment - Suicidal Ideation Suicidal Ideation: No - Homicidal Ideation Homicidal Ideation: No Goal/Treatment Plan - Goal/Treatment Plan Need for Continued Stay: Discharge may exacerbated symptoms, Severe functional impairment Progress Toward Problem(s) and Goals/Treatment Plan: Taper with ativan, methadone Remeron for depression Gabapentin for augmentation if needed As needed medications All risks, benefits and alternatives of the meds discussed, and the pt agreed and understood. Attend groups and activities Supportive therapy and psychoeducation [place] for abstinence CBT for relapse prevention Encourage MAT Refer to rehab or IOP, and self-help groups Smoking cessation with [place] Nicotine patch if needed Estimated Date of D/C: 03/09/18 If changed, why: per pt's request
--- NOTE | 2018-03-09 08:54 | PCM.PYCHDC ---
Mental Status Examination - Mental Status Examination Orientation: Person, Place, Situation, Time Memory: Impaired Mood: Anxious Affect: Constricted Speech: Slurred Attention: WNL Concentration: Poor Association: WNL Fund of Knowledge: WNL Formal Thought Process: No Impairment Suicidal Ideation: No Current Homicidal Ideation?: No Discharge Summary - Discharge Note Reason for Hospitalization: Alcohol and opioid detoxes Consultations:: List each consultation separately and include: 1. Reason for request. 2. Findings. 3. Follow-up Summary of Hospital Course include:: 1. Description of specific treatment plan utilized for patients during their course of treatmen. 2. Summarize the time- course for resolution of acute symptoms and/or regressed behaviors. 3. Describe issues identified and worked on during hospitalization. 4. Describe medication utilized. 5. Describe medical problems identified and treated. 6. Reassessment of suicide risk Summary of Hospital Course: The pt is seen, chart reviewed and case discussed On admission: He is well-known from numerous admissions and ER visits. He was d/c'ed from our psych clinic this year August and relapsed quickly. Pt is a 56 year old single, homeless but soon to be domiciled male self referred and admited to detox due to worsening withdrawal from alcohol and heroin. Pt is a poor historian. Pt is not compliant with the treatment. He has multiple psychiatric and detox admissions in the past. Pt states he has been depressed for a long time and has been suicidal in the past but denies now. Pt reports poor sleep but normal appetite. Feels somewhat depressed. He is drinking 2.5 pints of alcohol a day and snorting about 5 bags of heroin. He was d/c'ed from [facility] detox unit in October and says that he doesn't know how long he was clean before he relapsed. He did not use the methadone or suboxone clinics after discharge. He started using alcohol at 8 years old, and started using heroin at 28 years old. 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 Past Psychiatric Hx: Pt has several psychiatric and detox admissions at [facility] and he reports [facility] admissions in the past. 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 Pt reported that he drinks 2 pints of vodka daily, started at the age of 8, he uses cocaine 1/2 gm /month, started at the age of 28, and heroin intranasally, started at the age of 28. Hospital course: The pt was admitted and started on treatment with psychotherapy, support, psychoeducation and medications. ND and CBT used. The pt attended groups and activities, as well as milieu therapy. All the risks and benefits of medications are discussed and the patient understood and agreed. The pt improved with the treatments provided. After care discussed with the patient. He was uninterested in after care, he said he would go to [facility]. He also left early. Risks discussed, he understood. He was also irate, intimidating, splitting on and off. He was calmer bc of getting housing as of 03/14 - Final Diagnosis (DSM 5) Condition upon Discharge: IMPROVED DSM 5: Alcohol withdrawal Alcohol use d/o - severe Opioid withdrawal Opioid use d/o- severe Major depressive d/o - recurrent, moderate Tobacco use d/o - severe Disposition: HOME/ ROUTINE Follow-up Treatment Plan: Continue below medications after discharge. Follow after care plan as discussed. Use relapse prevention skills Return to ER or call 911 if suicidal, homicidal or symptoms relapse. Stay away from stress, alcohol and drugs. See primary doctor regularly and get labs. Prescriptions/Medication Reconciliation: Mirtazapine [Remeron] 15 mg PO HS #30 tab traZODone [Desyrel] 50 mg PO HS PRN #30 tab PRN Reason: Insomnia
[2018-03-09] MEDS: Multiple Vitamins Tab PO SCH (09:04)
[2018-03-09 09:08] VITALS: BP 137/85; PULSE 75; RESP 20; TEMP 97.6; O2SAT 97
== END 2018-03-09 09:38 | disposition home or self-care (01) | DRG 744 ==
LOC: C.ER 20:18 → C.7D 21:34
PROVIDERS: ADMIT Psychiatry & Neurology Psychiatry; ATTEND Psychiatry & Neurology Psychiatry
PROC: HZ2ZZZZ Detoxification Services for Substance Abuse Treatment (ICD-10-PCS; principal; 2018-03-05)
DX: F10.230 Alcohol dependence with withdrawal, uncomplicated (principal); J44.9 Chronic obstructive pulmonary disease, unspecified; F11.20 Opioid dependence, uncomplicated; N18.9 Chronic kidney disease, unspecified; F32.9 Major depressive disorder, single episode, unspecified; F10.220 Alcohol dependence with intoxication, uncomplicated; Y90.6 Blood alcohol level of 120-199 mg/100 ml; I12.9 Hypertensive chronic kidney disease with stage 1 through stage 4 chronic kidney disease, or unspecified chronic kidney disease; Z59.0 Homelessness; F17.210 Nicotine dependence, cigarettes, uncomplicated

== ENCOUNTER 2018-12-18 12:13 | Inpatient (IN) | payer MEDICAID ==
[2018-12-18 12:13] VITALS: BMI 29.0
--- NOTE | 2018-12-18 13:51 | C.PDOC ---
History Of Present Illness 58-year-old male presents to the ED requesting alcohol and heroin detox. Patient reports last use of both substances at 0200 today. Patient denies suicidal/homicidal ideation. denies any physical complaints Time Seen by Provider: 12/18/18 13:11 Chief Complaint (Nursing): Substance Abuse History Per: Patient History/Exam Limitations: no limitations Onset/Duration Of Symptoms: Hrs Current Symptoms Are (Timing): Still Present Modifying Factor(s): Alcohol, Other (heroin ) Associated Symptoms: denies: Suicidal Thoughts, Suicidal Plan Involuntary Hold By: None Recent travel outside of the [place]: No Additional History Per: Patient Past Medical History Reviewed: Historical Data, Nursing Documentation, Vital Signs Vital Signs: Last Vital Signs Temp 98.8 F 12/18/18 12:41 Pulse 85 12/18/18 12:41 Resp 18 12/18/18 12:41 BP 111/72 12/18/18 12:41 Pulse Ox 92 L 12/18/18 12:41 Primary Care Provider: Grayson Johnson - Medical History PMH: Anxiety, Arthritis, Back Problems, Bronchitis, COPD, Depression, Fractures (fx left leg), Gastrointestinal Ulcer, Gall Bladder Disease, HTN, Kidney Stones, Migraine, Chronic Kidney Disease, Seizures (alcohol induced), TIA (2013) Denies: Diabetes, Hepatitis, HIV, Hypercholesterolemia, Sexually Transmitted Disease Surgical History: No Surg Hx - [facility] Procedures ALCOHOL DETOXIFICATION (11/06/14) COMBINED ALCOHOL AND DRUG DETOXIFICATION (05/05/15) DETOXIFICATION SERVICES FOR SUBSTANCE ABUSE TREATMENT (03/05/18) GROUP SERVICE PLUMBER FOR SUBSTANCE ABUSE TREATMENT, PSYCHOEDUCATION (10/16/17) GROUP SERVICE PLUMBER FOR SUBSTANCE ABUSE, COGNITIVE BEHAVIORAL (10/16/17) GROUP PSYCHOTHERAPY (05/24/16) INDIV PSYCHOTHERAPY FOR SUBSTANCE ABUSE TREATMENT, SUPPORT (10/16/17) INDIV PSYCHOTHERAPY FOR SUBSTANCE ABUSE, COGNITIV BEHAVIORAL (10/16/17) INDIV PSYCHOTHERAPY FOR SUBSTANCE ABUSE, MOTIVATION ENHANCE (06/15/17) INDIV PSYCHOTHERAPY FOR SUBSTANCE ABUSE, PSYCHOEDUCATION (10/16/17) MEDICATION MANAGEMENT (03/17/17) MEDS MGMT FOR SUBSTANCE ABUSE TREATMENT, OTH REPL MED (06/15/17) PHARMACOTHERAPY FOR SUBSTANCE ABUSE, METHADONE MAINT (07/08/17) Family History: States: Unknown Family Hx - Social History Hx Tobacco Use: Yes Hx Alcohol Use: Yes (vodka) Hx Substance Use: Yes - Immunization History Hx Tetanus Toxoid Vaccination: No Hx Influenza Vaccination: No Hx Pneumococcal Vaccination: No Review Of Systems Constitutional: Negative for: Fever, Chills Cardiovascular: Negative for: Chest Pain Respiratory: Negative for: Cough Gastrointestinal: Negative for: Abdominal Pain Skin: Negative for: Rash Neurological: Negative for: Weakness, Numbness Psych: Positive for: Other (alcohol and heroin detox ). Negative for: Suicidal ideation Physical Exam - Physical Exam Appears: Non-toxic, No Acute Distress Skin: Warm, Dry Head: Atraumatic, Normacephalic Eye(s): bilateral: Normal Inspection Teeth: Edentulous Neck: Supple Chest: Symmetrical, No Deformity, No Tenderness Cardiovascular: Rhythm Regular, No Murmur Respiratory: Normal Breath Sounds, No Rales, No Rhonchi, No Wheezing Extremity: Capillary Refill, Other (mild swelling to dorsum of bilateral feet with multiple IV track richards ) Neurological/Psych: Oriented x3, Normal Speech, Normal Cognition ED Course And Treatment - Laboratory Results Result Diagrams: 12/18/18 14:06 12/18/18 14:06 O2 Sat by Pulse Oximetry: 92 Medical Decision Making Medical Decision Making: Progress: Bloodwork and urinalysis ordered and reviewed. pt is medically cleared for detox admisison. Disposition Discussed With .: Clarita Elizondo Doctor Will See Patient In The: Hospital - Disposition Disposition: HOSPITALIZED Disposition Time: 16:08 Condition: GOOD - Clinical Impression Clinical Impression: Opioid use disorder, severe, dependence - Scribe Statement The provider has reviewed the documentation as recorded by the Scribe (Destiny Villagran) All medical record entries made by the Scribe were at my direction and personally dictated by me. I have reviewed the chart and agree that the record accurately reflects my personal performance of the history, physical exam, medical decision making, and the department course for this patient. I have also personally directed, reviewed, and agree with the discharge instructions and disposition.
[2018-12-18 14:14] LABS: BASO % 0.7 % (0.0-2.0); EOS # 0.1 K/uL (0.0-0.7); EOS % 2.3 % (0.0-4.0); LYMPH # 2.1 K/uL (1.0-4.3); LYMPH % 34.4 % (20.0-40.0); MEAN CELL VOLUME 98.7 fL (80.0-94.0); MEAN CORPUSCULAR HEMOGLOBIN 34.3 pg (27.0-31.0); MEAN CORPUSCULAR HGB CONC 34.7 g/dL (33.0-37.0); MEAN PLATELET VOLUME 7.4 fL (7.2-11.7); MONO # 0.7 K/uL (0.0-0.8); MONO % 11.7 % (0.0-10.0); NEUT # 3.2 K/uL (1.8-7.0); NEUT % 50.9 % (50.0-75.0); RBC 4.09 Mil/uL (4.40-5.90); RED CELL DISTRIBUTION WIDTH 12.8 % (11.5-14.5); WHITE BLOOD COUNT 6.2 K/uL (4.8-10.8)
[2018-12-18 14:18] LABS: SQUAMOUS EPITHIAL 7 /hpf (0-5); URINE BACTERIA RARE (<OCC); URINE BILIRUBIN NEGATIVE (NEGATIVE); URINE BLOOD NEGATIVE (NEGATIVE); URINE CLARITY Hazy (Clear); URINE COLOR Amber (YELLOW); URINE GLUCOSE (UA) NORMAL (Normal); URINE LEUKOCYTE ESTERASE NEG Leu/uL (Negative); URINE PROTEIN NEGATIVE (NEGATIVE)
[2018-12-18 14:29] LABS: ALB/GLOB RATIO 1.2 (1.0-2.1); ALBUMIN 3.8 g/dL (3.5-5.0); ALT/SGPT 96 U/L (21-72); AST/SGOT 97 U/L (17-59); BLOOD UREA NITROGEN 15 mg/dL (9-20); GFR NON-AFRICAN AMERICAN > 60
[2018-12-18 15:16] LABS: BARBITURATES, UR NEGATIVE (NEGATIVE); BENZODIAZEPINES, UR NEGATIVE (NEGATIVE); PHENCYCLIDINE, UR NEGATIVE (NEGATIVE)
[2018-12-18 15:41] LABS: OPIATES, UR POSITIVE (NEGATIVE)
--- NOTE | 2018-12-18 16:54 | PCM.BM ---
<Brissa Chamberlain - Last Filed: 12/18/18 16:52> Treatment Plan Problems - Problems identified on initial assessmt Anxiety Related to Substance Use Date Initiated: 12/18/18 Time Initiated: 16:52 Assessment reference: NA Status: Active Low Motivation to Change Date Initiated: 12/18/18 Time Initiated: 16:53 Assessment reference: NA Status: Active Knowledge Deficit: alcohol Use Date Initiated: 12/18/18 Time Initiated: 16:53 Assessment reference: NA Status: Active Treatment assets and liabiliti Patient Assests: cooperative, self-reliant, ADL independent, negotiates basic needs, cognitively intact Patient Liabilities: substance abuse - Milieu Protocol Maintain good personal hygiene: daily Encourage regular showers, daily Remind patient to perform daily oral care, daily Assist patient to perform ADL's Conduct patient checks and document Observation sheet: Q15 minutes Maintain personal safety: every shift Educate patient to report safety concerns to staff, every shift Monitor environment for contraband/sharps Medication safety: Monitor for expected outcome, potential side effects: every shift, Assess barriers to learning: every shift, Assess readiness for medication education: every shift <Ceci Martinez - Last Filed: 12/19/18 13:14> Family Contact Family involvement: Famliy/SO not involved - Goals for Treatment Patient goals for treatment: Complete detox and apply for short-term rehab. Discharge/Continuing Care - Education Needs Education Needs: Patient Medication, Patient Diagnosis/Disease Process, Patient Coping Skills, Patient Anger Management skills, Patient Placement options, Patient Community resources - Discharge Discharge Criteria: Ability to care for self, No longer exhibiting s/s of withdrawal, Reduction of target symptoms Discharge to:: Substance Abuse Rehab - Additional Comments 12/19/18 13:15 "I wanna go to a 28-day place. I can't go long-term...I don't wanna lose my housing..." - Treatment Team Participation Patient/Family/SO Statement: 12/19/18 13:16 see above. Discussed with Family/SO: No Was Patient/Family/SO present at Treatment Team Meeting: Yes <Clarita Elizondo - Last Filed: 12/21/18 13:02> - Diagnosis (1) Opioid use disorder, severe, dependence Status: Acute Interventions: 12/20/18 13:02 * Assess 7x/week regarding severity of withdrawal * Educate regarding risks, benefits, side effects and alternatives of medi cations * Use Motivational Interviewing for abstinence * Use CBT for relapse prevention * Medication management for withdrawal symptoms * Encourage medication assisted treatment * (2) Alcohol withdrawal Status: Acute Interventions: 12/20/18 13:02 * Assess 7x/week regarding severity of withdrawal * Educate regarding risks, benefits, side effects and alternatives of medications * Use Motivational Interviewing for abstinence * Use CBT for relapse prevention * Medication management for withdrawal symptoms * Encourage medication assisted treatment *
[2018-12-19] MEDS: Multiple Vitamins Tab PO SCH (09:19)
--- NOTE | 2018-12-19 14:28 | PCM.PSYCH ---
Initial Psychiatric Evaluation - Initial Psychiatric Evaluation Type of Admission: Voluntary Legal Status: Capacity Chief Complaint (in patient's own words): "I don't feel well" History of Present Illness and Precipitating Events: The pt is seen, chart reviewed and case discussed He is well-known from numerous admissions and ER visits. He was d/c'ed from our psych clinic this year August and relapsed quickly. Pt is a 58 year old single, homeless but soon to be domiciled male self referred and admited to detox due to worsening withdrawal from alcohol and heroin. Pt is a poor historian. Pt is not compliant with the treatment. He has multiple psychiatric and detox admissions in the past. Pt states he has been depressed for a long time and has been suicidal in the past but denies now. Pt reports poor sleep but normal appetite. Feels somewhat depressed. He is drinking 2.5 pints of alcohol a day and snorting about 5 bags of heroin. He was d/c'ed from [facility] detox unit in October and says that he doesn't know how long he was clean before he relapsed. He did not use the methadone or suboxone clinics after discharge. He started using alcohol at 8 years old, and started using heroin at 28 years old. 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 Past Psychiatric Hx: Pt has several psychiatric and detox admissions at [facility] and he reports [facility] admissions in the past. 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 Pt reported that he drinks 2 pints of vodka daily, started at the age of 8, he uses cocaine 1/2 gm /month, started at the a ge of 28, and heroin intranasally, started at the age of 28. Current Medications: Active Medications Generic Name Dose Route Start Last Admin Trade Name Freq PRN Reason Stop Dose Admin Clonidine HCl 0.1 mg 12/19/18 08:35 Catapres PO Q4H PRN Symptoms of alcohol withdrawl Folic Acid 1 mg 12/19/18 10:00 12/19/18 09:18 Folic Acid PO 1 mg DAILY BEVERLEY Administration Lorazepam 1 mg 12/18/18 17:44 12/18/18 17:53 Ativan PO 1 mg Q4H PRN Administration Symptoms of alcohol withdrawl Lorazepam 2 mg 12/19/18 12:00 12/19/18 12:32 Ativan PO 12/24/18 11:59 2 mg Q8H BEVERLEY Administration Taper Methadone HCl 15 mg 12/19/18 10:00 12/19/18 09:19 Methadone PO 12/23/18 09:59 15 mg Q24H BEVERLEY Administration Taper Multivitamins 1 tab 12/19/18 10:00 12/19/18 09:19 Hexavitamin PO 1 tab DAILY BEVERLEY Administration Thiamine HCl 100 mg 12/19/18 10:00 12/19/18 09:18 Vitamin B1 Tab PO 100 mg DAILY BEVERLEY Administration Trazodone HCl 50 mg 12/18/18 17:44 Desyrel PO HS PRN Insomnia Past Psychiatric History - Past Psychiatric History Previous Treatment History: Inpatient Pertinent Medical Hx (Current Medical&Sleep Prob, Allergies): Allergies Allergy/AdvReac Type Severity Reaction Status Date / Time amitriptyline HCl Allergy SWELLING Verified 12/18/18 12:44 [From Elavil] naproxen Allergy SWELLING Verified 12/18/18 12:44 pregabalin [From Lyrica] Allergy SWELLING Verified 12/18/18 12:44 No Known Home Med 12/18/18 Review of Systems - Psychiatric Psychiatric: Abnormal Sleep Pattern, Anhedonia, Anxiety, Behavioral Changes, Depression, Difficulty Concentrating, Irritability. absent: Hallucinations, Homicidal Ideation, Suicidal Ideation Mental Status Examination - Personal Presentation Personal Presentation: Looks older than stated age - Affect Affect: Constricted - Motor Activity Motor Activity: Calm - Reliability in Providing Information Reliability in Providing Information: Fair - Speech Speech: Organized - Mood Mood: Depressed, Anxious - Formal Thought Process Formal Thought Process: No Impairment - Cognitive Functions Orientation: Person, Place, Situation, Time Sensorium: Drowsy Attention/Concentration: Easily distracted Abstract Thinking: [place] Estimate of Intelligence: Average Judgement: Intact, as evidence by: Insight regarding need for hospitalization Memory: Recent intact, as evidence by: Ability to recall events of the day, Remote intact, as evidenced by: Abilit to recall sig. life events - Risk Risk: Withdrawal, Diminished functioning - Strength & Assets Inventory Strength & Assets Inventory: Life experience, Cooperative - Limitations Limitations: Other DSM 5 DX - DSM 5 DSM 5 Diagnosis: Alcohol withdrawal Alcohol use d/o - severe Opioid withdrawal Opioid use d/o- severe Major depressive d/o - recurrent, moderate Tobacco use d/o - severe - Recommended/Plan of Treatment Treatment Recommendations and Plan of Treatment: Taper with ativan, methadone Remeron for depression Gabapentin for augmentation if needed As needed medications All risks, benefits and alternatives of the meds discussed, and the pt agreed and understood. Attend groups and activities Supportive therapy and psychoeducation [place] for abstinence CBT for relapse prevention Encourage MAT Refer to rehab or IOP, and self-help groups Smoking cessation with [place] Nicotine patch if needed 34 min Projected ELOS: 4-5 days Prognosis: goodd - Smoking Cessation Smoking Cessation Initiated: Yes
[2018-12-20] MEDS: Multiple Vitamins Tab PO SCH (10:38)
--- NOTE | 2018-12-20 14:15 | PCM.PYCHPN ---
Psychiatric Progress Note - Psychiatric Progress Note Patient seen today, length of contact: 16 min Patient Chief Complaint: "I have so much pain" Problems Identified/Issues Discussed: The pt is seen, chart reviewed, case discussed with staff. Support and psychoeducation given, CBT and AR used briefly Pt is improving slowly and needs more time, still has ongoing symptoms. No SEs from medications, risks discussed. After care discussed Medication Change: Yes (detox changes daily) Medical Record Reviewed: Yes Mental Status Examination - Cognitive Function Orientation: Person, Place, Situation, Time Memory: Impaired Attention: Poor Concentration: Poor Association: WNL Fund of Knowledge: Poor - Mood Mood: Depressed, Anxious - Affect Affect: Constricted - Speech Speech: Appropriate - Formal Thought Process Formal Thought Process: No Impairment - Suicidal Ideation Suicidal Ideation: No - Homicidal Ideation Homicidal Ideation: No Goal/Treatment Plan - Goal/Treatment Plan Need for Continued Stay: Discharge may exacerbated symptoms, Severe functional impairment Progress Toward Problem(s) and Goals/Treatment Plan: Taper with ativan, methadone Remeron for depression Gabapentin for augmentation if needed As needed medications All risks, benefits and alternatives of the meds discussed, and the pt agreed and understood. Attend groups and activities Supportive therapy and psychoeducation [place] for abstinence CBT for relapse prevention Encourage MAT Refer to rehab or IOP, and self-help groups Smoking cessation with AR Nicotine patch if needed New meds added for pain Estimated Date of D/C: 12/23/18
[2018-12-21] MEDS: Multiple Vitamins Tab PO SCH (09:03)
--- NOTE | 2018-12-21 13:05 | PCM.PYCHPN ---
Psychiatric Progress Note - Psychiatric Progress Note Patient seen today, length of contact: 16 min Patient Chief Complaint: "I am not well at all" Problems Identified/Issues Discussed: The pt is seen, chart reviewed, case discussed with staff. The pt is compliant with medications and reports no side-effects. Symptoms are improving but needs more time to stabilize. Pt attends groups and activities. Support given, psycho-education provided. After care discussed. Medication Change: Yes (detox changes daily) Medical Record Reviewed: Yes Mental Status Examination - Cognitive Function Orientation: Person, Place, Situation, Time Memory: Impaired Attention: Poor Concentration: Poor Association: WNL Fund of Knowledge: Poor - Mood Mood: Depressed, Anxious - Affect Affect: Constricted - Speech Speech: Appropriate - Formal Thought Process Formal Thought Process: No Impairment - Suicidal Ideation Suicidal Ideation: No - Homicidal Ideation Homicidal Ideation: No Goal/Treatment Plan - Goal/Treatment Plan Need for Continued Stay: Discharge may exacerbated symptoms, Severe functional impairment Progress Toward Problem(s) and Goals/Treatment Plan: Taper with ativan, methadone Remeron for depression Gabapentin for augmentation if needed As needed medications All risks, benefits and alternatives of the meds discussed, and the pt agreed and understood. Attend groups and activities Supportive therapy and psychoeducation [place] for abstinence CBT for relapse prevention Encourage MAT Refer to rehab or IOP, and self-help groups Smoking cessation with [place] Nicotine patch if needed New meds added for pain Estimated Date of D/C: 12/23/18
[2018-12-22] MEDS: Multiple Vitamins Tab PO SCH (09:11)
--- NOTE | 2018-12-22 12:15 | PCM.PYCHPN ---
Psychiatric Progress Note - Psychiatric Progress Note Patient seen today, length of contact: 16 min Patient Chief Complaint: "I still have pain" Problems Identified/Issues Discussed: The pt is seen again, chart reviewed, and case is discussed with the team. The pt denies any side-effects from meds. Attends activities and groups, brief individual therapy provided Not ready for discharge due to ongoing symptoms and high relapse risk. After care discussed again. As before, he is NOT interested in rehab. Risks discussed Medication Change: Yes (detox changes daily) Medical Record Reviewed: Yes Mental Status Examination - Cognitive Function Orientation: Person, Place, Situation, Time Memory: Impaired Attention: Poor Concentration: Poor Association: WNL Fund of Knowledge: Poor - Mood Mood: Depressed, Anxious - Affect Affect: Constricted - Speech Speech: Appropriate - Formal Thought Process Formal Thought Process: No Impairment - Suicidal Ideation Suicidal Ideation: No - Homicidal Ideation Homicidal Ideation: No Goal/Treatment Plan - Goal/Treatment Plan Need for Continued Stay: Discharge may exacerbated symptoms, Severe functional impairment Progress Toward Problem(s) and Goals/Treatment Plan: Taper with ativan, methadone Remeron for depression Gabapentin for augmentation if needed As needed medications All risks, benefits and alternatives of the meds discussed, and the pt agreed and understood. Attend groups and activities Supportive therapy and psychoeducation [place] for abstinence CBT for relapse prevention Encourage MAT Refer to rehab or IOP, and self-help groups Smoking cessation with [place] Nicotine patch if needed New meds added for pain Estimated Date of D/C: 12/23/18
[2018-12-23] MEDS ORDERED: Aluminum Hydroxide/Magnesium Hydroxide Susp (30 mL) PO PRN (06:14)
[2018-12-23 06:59] VITALS: O2SAT 99
[2018-12-23] MEDS: Multiple Vitamins Tab PO SCH (09:24)
--- NOTE | 2018-12-23 09:29 | PCM.PYCHDC ---
Mental Status Examination - Mental Status Examination Orientation: Person Discharge Summary - Discharge Note Consultations:: List each consultation separately and include: 1. Reason for request. 2. Findings. 3. Follow-up Summary of Hospital Course include:: 1. Description of specific treatment plan utilized for patients during their course of treatmen. 2. Summarize the time- course for resolution of acute symptoms and/or regressed behaviors. 3. Describe issues identified and worked on during hospitalization. 4. Describe medication utilized. 5. Describe medical problems identified and treated. 6. Reassessment of suicide risk Summary of Hospital Course: The pt is seen, chart reviewed and case discussed He is well-known from numerous admissions and ER visits. He was d/c'ed from our psych clinic this year August and relapsed quickly. Pt is a 58 year old single, homeless but soon to be domiciled male self referred and admited to detox due to worsening withdrawal from alcohol and heroin. Pt is a poor historian. Pt is not compliant with the treatment. He has multiple psychiatric and detox admissions in the past. Pt states he has been depressed for a long time and has been suicidal in the past but denies now. Pt reports poor sleep but normal appetite. Feels somewhat depressed. He is drinking 2.5 pints of alcohol a day and snorting about 5 bags of heroin. He was d/c'ed from [facility] detox unit in October and says that he doesn't know how long he was clean before he relapsed. He did not use the methadone or suboxone clinics after discharge. He started using alcohol at 8 years old, and started using heroin at 28 years old. 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 Past Psychiatric Hx: Pt has several psychiatric and detox admissions at [facility] and he reports [facility] admissions in the past. 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 Pt reported that he drinks 2 pints of vodka daily, started at the age of 8, he uses cocaine 1/2 gm /month, started at the age of 28, and heroin intranasally, started at the age of 28. He was resistant again about rehab. He also c/o back pain a lot despite meds. He will consider MMTP which helps his pain too - Diagnosis (1) Opioid use disorder, severe, dependence Current Visit: Yes Status: Acute (2) Alcohol withdrawal Current Visit: No Status: Acute - Final Diagnosis (DSM 5) Condition upon Discharge: GOOD Disposition: HOME/ ROUTINE Follow-up Treatment Plan: Taper with ativan, methadone Remeron for depression Gabapentin for augmentation if needed As needed medications All risks, benefits and alternatives of the meds discussed, and the pt agreed and understood. Attend groups and activities Supportive therapy and psychoeducation [place] for abstinence CBT for relapse prevention Encourage MAT Refer to rehab or IOP, and self-help groups Smoking cessation with [place] Nicotine patch if needed New meds added for pain Prescriptions/Medication Reconciliation: Baclofen [Lioresal] 10 mg PO DAILY #30 tab Cyclobenzaprine [Flexeril] 10 mg PO BID #60 tab Gabapentin [Neurontin] 300 mg PO BID #60 cap Mirtazapine [Remeron] 15 mg PO HS #30 tab
[2018-12-23 10:09] VITALS: BP 117/80; PULSE 74; RESP 74; TEMP 97.9
== END 2018-12-23 10:00 | disposition home or self-care (01) | DRG 426 ==
LOC: C.ER 12:13 → C.7D 16:07 → C.7T 12-19 09:34 → C.7D 12-19 09:37
PROVIDERS: ADMIT Psychiatry & Neurology Psychiatry; ATTEND Psychiatry & Neurology Psychiatry
DX: F32.9 Major depressive disorder, single episode, unspecified (principal); F11.23 Opioid dependence with withdrawal; J44.9 Chronic obstructive pulmonary disease, unspecified; F10.230 Alcohol dependence with withdrawal, uncomplicated; F14.10 Cocaine abuse, uncomplicated; Y90.0 Blood alcohol level of less than 20 mg/100 ml; Z59.0 Homelessness; Z72.0 Tobacco use